=== PATIENT | male | born 1945 | race Caucasian/White ===

== ENCOUNTER 2017-09-18 11:21 | Emergency (ER) | payer OTHER, MEDICAID ==
[~2017-09-18] VITALS: Ht 167.6 cm; Wt 68.0 kg
[2017-09-18 11:23] VITALS: BP 170/84
--- NOTE | 2017-09-18 11:24 | NUR ---
Patient BIBA to bed 8 at this time.
--- NOTE | 2017-09-18 11:44 | NUR ---
X-RAY COMPLETED AT BEDSIDE
--- NOTE | 2017-09-18 11:44 | NUR ---
SPEAKING WITH PT AND CAREGIVER
[2017-09-18] MEDS ORDERED: NACL 0.9% 1,000 ML IV ONE (11:45)
[2017-09-18] MEDS ORDERED: ONDANSETRON 4 MG/2 ML VIAL IVP ONE (11:45)
[2017-09-18] MEDS ORDERED: DUTA0.5S2 GT (11:52)
[2017-09-18] MEDS ORDERED: MULT-153 GT (11:52)
[2017-09-18] MEDS ORDERED: VITB12 IM (11:52)
[2017-09-18] MEDS ORDERED: CARB1TAB37 PO (11:52)
[2017-09-18] MEDS ORDERED: MAGN400S60 GT (11:52)
[2017-09-18] MEDS ORDERED: ACET-2619 PO (11:52)
[2017-09-18] MEDS ORDERED: OMEP20TC12 GT (11:52)
[2017-09-18] MEDS ORDERED: BISA5ECT45 RC (11:52)
[2017-09-18] MEDS ORDERED: RASA1TAB3 GT (11:52)
[2017-09-18] MEDS ORDERED: ASCO500T45 GT (11:52)
[2017-09-18] MEDS ORDERED: DIVA250T PO (11:52)
[2017-09-18] MEDS ORDERED: MIRABULK GT (11:52)
[2017-09-18] MEDS ORDERED: METO5SOL19 GT (11:52)
[2017-09-18] MEDS ORDERED: ONDA4ODT1 SL (11:52)
[2017-09-18] MEDS ORDERED: FOLI1TAB90 PO (11:52)
[2017-09-18] MEDS ORDERED: SYN.075 GT (11:52)
[2017-09-18] MEDS ORDERED: TAMS0.4C96 GT (11:52)
[2017-09-18] MEDS ORDERED: LACT10SO1 GT (11:52)
[2017-09-18] MEDS ORDERED: TRAV5SOL OP (11:52)
[2017-09-18] MEDS ORDERED: [UNRECOGNIZED DRUG - CODE] GT (11:52)
[2017-09-18] MEDS ORDERED: VITB6I GT (11:52)
[2017-09-18] MEDS ORDERED: guaiFENesin 600 MG TABER PO SCH (11:55)
[2017-09-18] MEDS ORDERED: ACETAMINOPHEN EXTRA STRENGTH 500 MG TAB GT ONE (12:05)
[2017-09-18 12:20] LABS: BASOPHILS # (AUTO) 0.1 K/uL (0.00-0.22); BASOPHILS % (AUTO) 1.2 % (0.0-2.0); EOSINOPHILS % (AUTO) 0.1 % (0.0-4.0); HEMATOCRIT 37.7 % (36-52); HEMOGLOBIN 12.6 g/dL (12.0-18.0); LYMPHOCYTES # (AUTO) 1.1 K/uL (2.0-11.5); LYMPHOCYTES % (AUTO) 9.8 % (20.5-51.1); MEAN CORPUSCULAR HEMOGLOBIN 30 pg (27-31); MEAN CORPUSCULAR HGB CONC 33 g/dL (33-37); MEAN CORPUSCULAR VOLUME 90 fL (80-94); MONOCYTES # (AUTO) 0.6 K/uL (0.8-1.0); MONOCYTES % (AUTO) 5.3 % (1.7-9.3); NEUTROPHILS # (AUTO) 9.2 K/uL (1.8-7.7); NEUTROPHILS % (AUTO) 83.6 % (42.2-75.2); PLATELET COUNT (AUTO) 163 K/uL (140-450); RED BLOOD CELL COUNT(AUTO) 4.21 MIL/uL (4.20-6.10); RED CELL DISTRIBUTION WIDTH 13.4 % (11.6-13.7)
[2017-09-18 12:29] LABS: ANION GAP 13.6 (8-16); CARBON DIOXIDE 27.6 mmol/L (21-32); CHLORIDE 96 mmol/L (98-107); CREATININE 1.3 mg/dL (0.7-1.3); GLUCOSE 126 mg/dL (74-106); POTASSIUM 4.2 mmol/L (3.5-5.1); SODIUM SERUM 133 mmol/L (136-145); UREA NITROGEN, BLOOD 17 mg/dL (7-18)
[2017-09-18 12:35] LABS: ALBUMIN 3.1 g/dL (3.4-5.0); ASPARTATE AMINOTRANSFERASE 27 U/L (15-37); TOTAL BILIRUBIN 0.3 mg/dL (0.0-1.0)
[2017-09-18] MEDS ORDERED: guaiFENesin DM 200/20 MG-10 ML 10 ML UDC GT ONE (12:35)
[2017-09-18] MEDS ORDERED: LEVOFLOXACIN 750 MG TAB GT ONE (12:50)
--- NOTE | 2017-09-18 12:57 | NUR ---
MEDICATED PT VIA G-TUBE WITHOUT RESISTANCE---PT SEMI-ELMER'S AWAKE ALERT CAREGIVER AT BEDSIDE
[2017-09-18 13:20] VITALS: BP 173/88
--- NOTE | 2017-09-19 11:43 | NUR ---
addendum:recieved call from estella, from lab. preliminary blood cult.results: gram positive cocci in clusters. awaiting for sensitivity/final report
== END 2017-09-18 13:20 | disposition home or self-care (01) ==
LOC: MED 11:21
DX: J40 Bronchitis, not specified as acute or chronic (principal); R11.10 Vomiting, unspecified; R50.9 Fever, unspecified; D72.828 Other elevated white blood cell count; E03.9 Hypothyroidism, unspecified; Z79.899 Other long term (current) drug therapy; Z88.0 Allergy status to penicillin; Z88.1 Allergy status to other antibiotic agents; Z88.8 Allergy status to other drugs, medicaments and biological substances
CPT/HCPCS: 36415; 71010; 80053; 83605; 83880; 85025; 87040; 87205; 89220; 96361; 96374; 99285; J2405; J7030; Q0092; 87070

== ENCOUNTER 2018-01-11 11:57 | Inpatient (IN) | payer OTHER, MEDICAID ==
[~2018-01-11] VITALS: Ht 170.2 cm; Wt 73.9 kg
[~2018-01-11 11:57] MED LIST: ACET-2619 PO; ASCO500T45 GT; BISA5ECT45 RC; CARB1TAB37 PO; DIVA250T PO; DUTA0.5S2 GT; FOLI1TAB90 PO; LACT10SO1 GT; MAGN400S60 GT; METO5SOL19 GT; MIRABULK GT; MULT-153 GT; OMEP20TC12 GT; ONDA4ODT1 SL; RASA1TAB3 GT; SYN.075 GT; TAMS0.4C96 GT; TRAV5SOL OP; VITB12 IM; VITB6I GT; [UNRECOGNIZED DRUG - CODE] GT
[2018-01-11] MEDS ORDERED: NACL 0.9% 1,000 ML IV SCH (12:01)
[2018-01-11 12:11] VITALS: BP 111/50
[2018-01-11 12:58] LABS: BASOPHILS # (AUTO) 0.1 K/uL (0.00-0.22); BASOPHILS % (AUTO) 1.4 % (0.0-2.0); EOSINOPHILS % (AUTO) 0.4 % (0.0-4.0); HEMATOCRIT 38.8 % (36-52); HEMOGLOBIN 12.5 g/dL (12.0-18.0); LYMPHOCYTES % (AUTO) 18.8 % (20.5-51.1); MEAN CORPUSCULAR HEMOGLOBIN 30 pg (27-31); MEAN CORPUSCULAR HGB CONC 32 g/dL (33-37); MEAN CORPUSCULAR VOLUME 92 fL (80-94); MONOCYTES % (AUTO) 9.4 % (1.7-9.3); NEUTROPHILS # (AUTO) 7.6 K/uL (1.8-7.7); PLATELET COUNT (AUTO) 141 K/uL (140-450); RED BLOOD CELL COUNT(AUTO) 4.24 MIL/uL (4.20-6.10); RED CELL DISTRIBUTION WIDTH 13.7 % (11.6-13.7); WHITE BLOOD COUNT (AUTO) 10.7 K/uL (4.8-10.8)
[2018-01-11 13:06] LABS: PROTHROMBIN TIME 11.6 secs (10.8-13.4)
[2018-01-11 13:12] LABS: ALBUMIN 3.2 g/dL (3.4-5.0); ANION GAP 14.8 (8-16); ASPARTATE AMINOTRANSFERASE 18 U/L (15-37); CHLORIDE 98 mmol/L (98-107); CREATININE 1.4 mg/dL (0.7-1.3); GLUCOSE 97 mg/dL (74-106); POTASSIUM 3.8 mmol/L (3.5-5.1); SODIUM SERUM 136 mmol/L (136-145); TOTAL BILIRUBIN 0.4 mg/dL (0.0-1.0); UREA NITROGEN, BLOOD 35 mg/dL (7-18)
[2018-01-11] MEDS ORDERED: AZITHROMYCIN 500 MG in DEXTROSE 5% 250 ML IV ONE (13:25)
[2018-01-11] MEDS ORDERED: AZITHROMYCIN 500 MG INJ VIAL IV ONE (13:34)
[2018-01-11 13:47] LABS: APPEARANCE,URINE CLEAR (CLEAR); BILIRUBIN,URINE NEGATIVE (NEGATIVE); BLOOD, URINE NEGATIVE (NEGATIVE); COLOR,URINE YELLOW (YELLOW); LEUKOCYTE ESTERASE ,URINE NEGATIVE (NEGATIVE); NITRITE, URINE NEGATIVE (NEGATIVE); UGLUCOSE NEGATIVE (NEGATIVE)
[2018-01-11 13:56] LABS: RBC,URINE 0-5 (RARE) /HPF (0-5); WBC,URINE 0-5 (RARE) /HPF (0-5)
[2018-01-11] MEDS ORDERED: HYDROcodone/APAP 7.5/325 MG 1 TAB PO PRN (14:05)
[2018-01-11] MEDS ORDERED: ACETAMINOPHEN 325 MG TAB PO PRN (14:05)
[2018-01-11] MEDS ORDERED: ONDANSETRON 4 MG/2 ML VIAL IVP PRN (14:05)
[2018-01-11] MEDS ORDERED: ALEN70TA52 (14:31)
[2018-01-11] MEDS ORDERED: AMLO10TA PO (14:31)
[2018-01-11 14:42] LABS: FREE T4 (FREE THYROXINE) 1.38 ng/dL (0.76-1.46); PHOSPHORUS 3.6 mg/dL (2.5-4.9); THYROID STIMULATING HORMONE 3.2 uIU/mL (0.34-3.74)
[2018-01-11] MEDS: NACL 0.9% 1,000 ML IV SCH (15:20)
[2018-01-11] MEDS ORDERED: METOCLOPRAMIDE 10 MG/10 ML SYRP UDC GT PRN (15:25)
[2018-01-11] MEDS ORDERED: MAGNESIUM HYDROXIDE 2400 MG/30 ML UDC GT PRN (15:25)
[2018-01-11] MEDS ORDERED: BISACODYL 5 MG TABEC NG PRN (15:25)
[2018-01-11 15:30] VITALS: BP 116/50
[2018-01-11] MEDS ORDERED: ALBUTEROL SULFATE/IPRATROPIU 3 ML SOL IH PRN (17:10)
[2018-01-11] MEDS: CARBIDOPA/LEVODOPA 25/100 MG 1 TAB PO SCH (17:32)
[2018-01-11] MEDS: LEVOFLOXACIN 500 MG/D5W PREMIX 100 ML IV SCH (18:01)
[2018-01-11] MEDS: ALBUTEROL SULFATE/IPRATROPIU 3 ML SOL IH SCH (18:37)
[2018-01-11] MEDS: CLINDAMYCIN 300 MG in DEXTROSE 5% 50 ML IV SCH (18:59)
[2018-01-11 20:00] VITALS: BP 107/54
[2018-01-11] MEDS: LATANOPROST 0.005% OP 2.5 ML BTL OP SCH ×2 (21:00→21:52)
[2018-01-11] MEDS: DOCUSATE SODIUM 100 MG GELCAP PO SCH (21:04)
[2018-01-11] MEDS: DIVALPROEX 250 MG TABEC PO SCH (21:04)
[2018-01-12] VITALS: BP 112/52
[2018-01-12] MEDS: CLINDAMYCIN 300 MG in DEXTROSE 5% 50 ML IV SCH ×4 (00:11→17:05)
[2018-01-12 04:00] VITALS: BP 133/50
[2018-01-12] MEDS: LEVOTHYROXINE 0.075 MG TAB GT SCH (06:07)
[2018-01-12] MEDS: ALBUTEROL SULFATE/IPRATROPIU 3 ML SOL IH SCH ×3 (07:16→19:25)
[2018-01-12 08:22] VITALS: BP 149/72
[2018-01-12] MEDS ORDERED: DUTASTERIDE 0.5 MG GT SCH (09:00)
[2018-01-12] MEDS ORDERED: RASAGILINE MESYLATE 1 MG GT SCH (09:00)
[2018-01-12] MEDS: LACTOBACILLUS RHAMNOSUS GG 1 EACH CAP GT SCH (09:33)
[2018-01-12] MEDS: TAMSULOSIN 0.4 MG CAP GT SCH (09:34)
[2018-01-12] MEDS: DIVALPROEX 250 MG TABEC PO SCH ×2 (09:34→21:21)
[2018-01-12] MEDS: CARBIDOPA/LEVODOPA 25/100 MG 1 TAB PO SCH ×3 (09:34→17:05)
[2018-01-12] MEDS: DOCUSATE SODIUM 100 MG GELCAP PO SCH (09:34)
[2018-01-12] MEDS: amLODIPine 5 MG TAB PO SCH (09:37)
[2018-01-12] MEDS: NACL 0.9% 1,000 ML IV SCH (10:02)
[2018-01-12 12:00] VITALS: BP 120/56
[2018-01-12 16:00] VITALS: BP 103/50
[2018-01-12] MEDS: LEVOFLOXACIN 500 MG/D5W PREMIX 100 ML IV SCH (18:15)
[2018-01-12 20:00] VITALS: BP 122/61
[2018-01-12] MEDS: LATANOPROST 0.005% OP 2.5 ML BTL OP SCH (21:21)
[2018-01-12] MEDS: DOCUSATE 100 MG/10 ML UDC GT SCH (21:21)
[2018-01-13] VITALS: BP 142/57
[2018-01-13] MEDS: CLINDAMYCIN 300 MG in DEXTROSE 5% 50 ML IV SCH ×3 (00:50→12:42)
[2018-01-13 04:00] VITALS: BP 150/70
[2018-01-13] MEDS: NACL 0.9% 1,000 ML IV SCH (06:02)
[2018-01-13] MEDS: LEVOTHYROXINE 0.075 MG TAB GT SCH (06:08)
[2018-01-13] MEDS: ALBUTEROL SULFATE/IPRATROPIU 3 ML SOL IH SCH ×2 (06:55→13:26)
[2018-01-13 07:15] LABS: BASOPHILS # (AUTO) 0.1 K/uL (0.00-0.22); EOSINOPHILS # (AUTO) 0.1 K/uL (0-0.4); EOSINOPHILS % (AUTO) 0.9 % (0.0-4.0); HEMATOCRIT 31.9 % (36-52); HEMOGLOBIN 10.7 g/dL (12.0-18.0); LYMPHOCYTES # (AUTO) 1.4 K/uL (2.0-11.5); LYMPHOCYTES % (AUTO) 22.1 % (20.5-51.1); MEAN CORPUSCULAR HEMOGLOBIN 30 pg (27-31); MEAN CORPUSCULAR HGB CONC 34 g/dL (33-37); MEAN CORPUSCULAR VOLUME 90 fL (80-94); MONOCYTES # (AUTO) 0.5 K/uL (0.8-1.0); MONOCYTES % (AUTO) 8.4 % (1.7-9.3); NEUTROPHILS # (AUTO) 4.3 K/uL (1.8-7.7); NEUTROPHILS % (AUTO) 66.6 % (42.2-75.2); PLATELET COUNT (AUTO) 148 K/uL (140-450); RED BLOOD CELL COUNT(AUTO) 3.56 MIL/uL (4.20-6.10); RED CELL DISTRIBUTION WIDTH 13.7 % (11.6-13.7); WHITE BLOOD COUNT (AUTO) 6.4 K/uL (4.8-10.8)
[2018-01-13 07:36] LABS: ANION GAP 13.7 (8-16); CARBON DIOXIDE 25.3 mmol/L (21-32); CHLORIDE 105 mmol/L (98-107); GLUCOSE 98 mg/dL (74-106); SODIUM SERUM 140 mmol/L (136-145); UREA NITROGEN, BLOOD 19 mg/dL (7-18)
[2018-01-13 07:39] LABS: MAGNESIUM 1.8 mg/dL (1.8-2.4); PHOSPHORUS 2.4 mg/dL (2.5-4.9)
[2018-01-13 08:00] VITALS: BP 128/59
[2018-01-13] MEDS: TAMSULOSIN 0.4 MG CAP GT SCH (08:30)
[2018-01-13] MEDS: LACTOBACILLUS RHAMNOSUS GG 1 EACH CAP GT SCH (09:58)
[2018-01-13] MEDS: CARBIDOPA/LEVODOPA 25/100 MG 1 TAB PO SCH ×2 (09:58→12:42)
[2018-01-13] MEDS: DIVALPROEX 250 MG TABEC PO SCH (09:59)
[2018-01-13] MEDS: DOCUSATE 100 MG/10 ML UDC GT SCH (09:59)
[2018-01-13] MEDS: amLODIPine 5 MG TAB PO SCH (09:59)
[2018-01-13 12:00] VITALS: BP 94/53
[2018-01-13] MEDS ORDERED: LEVO750T2 PO (13:35)
[2018-01-13] MEDS ORDERED: ASCO1CAP75 PO (13:38)
[2018-01-17] MEDS ORDERED: ALENDRONATE SODIUM 70 MG TAB PO SCH (06:00)
== END 2018-01-13 14:50 | disposition home or self-care (01) | DRG 177 ==
LOC: MED 11:57 → MTU 14:09
PROVIDERS: ADMIT Student in an Organized Health Care Education/Training Program; ATTEND Student in an Organized Health Care Education/Training Program
DX: J69.0 Pneumonitis due to inhalation of food and vomit (principal); G93.41 Metabolic encephalopathy; J96.21 Acute and chronic respiratory failure with hypoxia; N17.0 Acute kidney failure with tubular necrosis; F72 Severe intellectual disabilities; E44.1 Mild protein-calorie malnutrition; G20 Parkinson's disease; G40.909 Epilepsy, unspecified, not intractable, without status epilepticus; K86.9 Disease of pancreas, unspecified; E03.9 Hypothyroidism, unspecified; K59.09 Other constipation; N28.1 Cyst of kidney, acquired; N18.3 Chronic kidney disease, stage 3 (moderate); I12.9 Hypertensive chronic kidney disease with stage 1 through stage 4 chronic kidney disease, or unspecified chronic kidney disease; N40.0 Benign prostatic hyperplasia without lower urinary tract symptoms; Z88.1 Allergy status to other antibiotic agents; Z88.0 Allergy status to penicillin; Z88.8 Allergy status to other drugs, medicaments and biological substances; Z79.899 Other long term (current) drug therapy; Z90.5 Acquired absence of kidney
CPT/HCPCS: 36415; 70450; 71045; 80048; 80053; 81001; 82150; 82550; 82553; 83036; 83605; 83690; 83735; 83880; 84100; 84439; 84443; 84484; 85025; 85610; 85730; 87040; 87081; 87086; 94640; 96361; 96365; 99285; C1758; J0456; J1956; J3490; J7030; J7060; J7620; Q0092

== ENCOUNTER 2018-03-04 08:26 | Inpatient (IN) | payer OTHER, MEDICAID ==
[~2018-03-04] VITALS: Ht 157.5 cm; Wt 72.1 kg
[~2018-03-04 08:26] MED LIST changes: +ACET-2619 GT; -ACET-2619 PO; +ALEN70TA52 GT; +AMLO10TA GT; +ASCO1CAP75 PO; +CARB1TAB37 GT; -CARB1TAB37 PO; +DIVA250T GT; -DIVA250T PO; -FOLI1TAB90 PO; +LEVO750T2 PO; -VITB12 IM; -VITB6I GT
[2018-03-04 08:39] VITALS: BP 153/58
--- NOTE | 2018-03-04 08:39 | NUR ---
PATIENT TO BED #1 BY SCHOOL LUNCH MANAGER. JEVON. WITH ASSISTANCE
--- NOTE | 2018-03-04 08:39 | NUR ---
PT BIBA FOR POST FALL THAT WAS ASSISTED TO THE FLOOR. [facility]. PT ALERT AND ORIENTED TO SELF, HE IS NON VERBAL WITH A GT TUBE OTHERWISE SKIN INTACT. 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 PT IS AMBULATORY BUT FACILITY STAFF HAD ASSISTED RESIDENT TO THE GROUND WHEN THEY WITNESSED HIM STARE OFF IN SPACE AND WAS NOT RESPONDING VERBALLY TO THEM. THEY ASSISTED HIM TO THE GROUND AND BROUGHT RESIDENT IN TO BE CHECKED OUT.
[2018-03-04] MEDS ORDERED: NACL 0.9% 1,000 ML IV ONE (09:15)
--- NOTE | 2018-03-04 09:47 | NUR ---
LAB DRAWS AND X RAY DONE AT BEDSIDE
[2018-03-04 09:56] LABS: BASOPHILS % (AUTO) 0.4 % (0.0-2.0); EOSINOPHILS % (AUTO) 0.8 % (0.0-4.0); HEMATOCRIT 38.3 % (36-52); HEMOGLOBIN 12.5 g/dL (12.0-18.0); LYMPHOCYTES % (AUTO) 24.2 % (20.5-51.1); MEAN CORPUSCULAR HEMOGLOBIN 30 pg (27-31); MEAN CORPUSCULAR HGB CONC 33 g/dL (33-37); MONOCYTES # (AUTO) 0.4 K/uL (0.8-1.0); NEUTROPHILS # (AUTO) 2.7 K/uL (1.8-7.7); NEUTROPHILS % (AUTO) 65.6 % (42.2-75.2); PLATELET COUNT (AUTO) 144 K/uL (140-450); RED BLOOD CELL COUNT(AUTO) 4.16 MIL/uL (4.20-6.10); RED CELL DISTRIBUTION WIDTH 14.3 % (11.6-13.7); WHITE BLOOD COUNT (AUTO) 4.2 K/uL (4.8-10.8)
[2018-03-04 10:06] LABS: CARBON DIOXIDE 30.8 mmol/L (21-32); CHLORIDE 98 mmol/L (98-107); CREATININE 1.3 mg/dL (0.7-1.3); GLUCOSE 100 mg/dL (74-106); POTASSIUM 4.8 mmol/L (3.5-5.1); SODIUM SERUM 135 mmol/L (136-145); UREA NITROGEN, BLOOD 20 mg/dL (7-18)
--- NOTE | 2018-03-04 10:06 | NUR ---
PT GING FOR CT TO HEAD AND FALL RISK BAND PLACED ON R WRIST
[2018-03-04 10:23] LABS: ALBUMIN 3.6 g/dL (3.4-5.0); ASPARTATE AMINOTRANSFERASE 24 U/L (15-37); TOTAL BILIRUBIN 0.4 mg/dL (0.0-1.0)
[2018-03-04 12:26] LABS: APPEARANCE,URINE CLEAR (CLEAR); BILIRUBIN,URINE NEGATIVE (NEGATIVE); BLOOD, URINE NEGATIVE (NEGATIVE); COLOR,URINE YELLOW (YELLOW); LEUKOCYTE ESTERASE ,URINE NEGATIVE (NEGATIVE); NITRITE, URINE NEGATIVE (NEGATIVE); UGLUCOSE NEGATIVE (NEGATIVE)
[2018-03-04] MEDS ORDERED: LORazepam 2 MG/ML VIAL IVP PRN (13:00)
[2018-03-04] MEDS ORDERED: BISACODYL 5 MG TABEC GT PRN (13:00)
[2018-03-04] MEDS ORDERED: METOCLOPRAMIDE 10 MG/10 ML SYRP UDC GT PRN (13:00)
[2018-03-04] MEDS ORDERED: ACETAMINOPHEN 325 MG TAB GT PRN (13:00)
[2018-03-04] MEDS ORDERED: ONDANSETRON 4 MG ODT SL PRN (13:00)
[2018-03-04] MEDS ORDERED: HYDROcodone/APAP 5/325 MG 1 TAB TAB GT PRN (13:00)
[2018-03-04] MEDS ORDERED: MAGNESIUM HYDROXIDE 2400 MG/30 ML UDC GT PRN (13:00)
[2018-03-04] MEDS ORDERED: MORPHINE SULFATE 4 MG/ML SYR IVP PRN (13:00)
--- NOTE | 2018-03-04 13:50 | NUR ---
ULTRASOUND AT BEDSIDE---PT REMAINS AWAKE CALM COOPERATIVE TO STAFF MENTAL DELAY PT'S BASELINE GCS 12 PT'S BASE LINE PER PT'S BLOCKING MACHINE OPERATOR
[2018-03-04] MEDS ORDERED: LACTULOSE 20 GM/30 ML UDC GT SCH (14:00)
[2018-03-04] MEDS ORDERED: MULTIVITAMIN 5 ML ORASYR GT SCH (14:00)
[2018-03-04] MEDS ORDERED: LANSOPRAZOLE 30 MG CAPDR GT SCH (14:00)
[2018-03-04] MEDS ORDERED: ASCORBIC ACID 500 MG TAB GT SCH (14:00)
[2018-03-04] MEDS: amLODIPine 5 MG TAB GT SCH ×2 (14:00→16:39)
[2018-03-04] MEDS ORDERED: POLYETHYLENE GLYCOL 17 GM/PKT GT SCH (14:00)
--- NOTE | 2018-03-04 14:00 | NUR ---
PT STRAIGHT CATHERTIZED VIA 16 F PT REALSED 525 MLS OF YELLOW URINE. PT TOLERATED PROCEDURE WELL.
--- NOTE | 2018-03-04 14:21 | NUR ---
Pt report given to GEORGI CRUMP. Transfer of care at this time TO TELE RM [id number]
[2018-03-04 14:30] VITALS: BP 171/71
--- NOTE | 2018-03-04 14:30 | NUR ---
PATIENT WAS TRANSFERRED FROM ER. REPORT WAS GIVEN AT BEDSIDE. PATIENT AMBULATED SELF TO BED, STEADY GAIT. VS IS TAKEN, MRSA WAS SWABBED. COMPUTER REPAIRER IS PLACED. PATIENT IS AWAKE, ALERT. RESPIRATION EVEN, UNLABOR ON ROOM AIR. SKIN DRY AND WARM. IV PATENT AND INTACT. G TUBE DRY AND INTACT. FLACC 0. PATIENT IS APHASIC, COOPERATIVE. BED AT LOW POSITION, HEAD OF BED WAS ELEVATED. ORIENTED PATIENT TO ROOM, STAFF, AND CALL LIGHT.
[2018-03-04] MEDS: CARBIDOPA/LEVODOPA 25/100 MG 1 TAB GT SCH ×2 (15:08→16:43)
[2018-03-04] MEDS: DEXT 5% /NACL 0.9% 1,000 ML IV SCH ×2 (15:09→23:00)
--- NOTE | 2018-03-04 15:11 | NUR ---
GTUBE RESIDUAL CHECK > 300 ML. MEDS ARE HELD. WILL NOTIFY .
[2018-03-04 16:00] VITALS: BP 167/73
--- NOTE | 2018-03-04 17:39 | NUR ---
CALLED AND SPOKE WITH TIARA KELLY RN [facility]. TIARA STATED SHE WILL CHECK THE MEDICATIONS AND WILL BRING IT TOMORROW.
[2018-03-04 18:49] LABS: CREATINE KINASE MB 1.8 ng/mL (0-3.6)
--- NOTE | 2018-03-04 19:12 | NUR ---
ENDORSEMENT GIVEN TO THE WATCH DIAL STONER NURSE. PATIENT IS STABLE AT THIS TIME
--- NOTE | 2018-03-04 19:13 | NUR ---
PATIENT REPORT RECEIVED FROM MORNING NURSE AT BEDSIDE. PATIENT IS AWAKE AND ALERT. APHASIC. BEDREST. NO SIGNS AND SYMPTOMS OF DISTRESS NOTED. FLACC-0. PATIENT IS ON ROOM AIR. GTUBE AND ABDOMINAL BINDER NOTED. IV SITE NOTED ON RIGHT AC, IVF INFUSING WELL. BED IN LOWEST POSITION, SIDE RAILS UP AND CALL LIGHT WITHIN REACH. WILL CONTINUE TO MONITOR.
[2018-03-04 20:00] VITALS: BP 147/64
[2018-03-04] MEDS ORDERED: NON-FORMULARY ITEM (Travoprost (Travatan Z 5 Ml) 1 DROP) OP SCH (21:00)
--- NOTE | 2018-03-04 21:00 | NUR ---
GTUBE RESIDUAL CHECKED. NO RESIDUAL NOTED. MEDICATION EDUCATION GIVEN. MEDICATION ADMINISTERED ORDERED. PATIENT TOLERATED WELL. WILL CONTINUE TO MONITOR.
[2018-03-04] MEDS: DIVALPROEX SPRINKLES 125 MG CAPDR GT SCH (21:16)
[2018-03-04] MEDS: TAMSULOSIN 0.4 MG CAP GT SCH (21:17)
--- NOTE | 2018-03-04 23:30 | NUR ---
PATIENT URINATED IN BED. PERICARE DONE. CHUCKS, SHEETS, AND GOWN CHANGED. BED BATH GIVEN. NOTICED LEFT KNEE SKIN TEAR, RIGHT FOREARM AND RIGHT LEG ABRASIONS. ALL HEALED. PICTURES TAKEN, WOUND ASSESSMENT DONE. PATIENT TOLERATED WELL. WILL CONTINUE TO MONITOR.
--- NOTE | 2018-03-04 23:33 | NUR ---
CHECKED ON PATIENT. PATIENT IS ASLEEP. NO SIGNS AND SYMPTOMS OF DISTRESS NOTED. BREATHING EVEN AND UNLABORED. WILL CONTINUE TO MONITOR. Addendum: 03/05/18 at 0302 by David Gant RN WRONG TIME [id number]
[2018-03-05] VITALS: BP 146/62
--- NOTE | 2018-03-05 02:00 | NUR ---
CHECKED ON PATIENT. PATIENT IS ASLEEP. NO SIGNS AND SYMPTOMS OF DISTRESS NOTED. FLACC 0. BREATHING EVEN AND UNLABORED. WILL CONTINUE TO MONITOR.
[2018-03-05 04:00] VITALS: BP 110/45
[2018-03-05] MEDS: LEVOTHYROXINE 0.075 MG TAB GT SCH (05:38)
[2018-03-05] MEDS: LANSOPRAZOLE 30 MG CAPDR GT SCH (05:38)
--- NOTE | 2018-03-05 06:00 | NUR ---
GTUBE RESIDUAL CHECKED. NO RESIDUAL NOTED. MEDICATION EDUCATION GIVEN. MEDICATION ADMINISTERED ORDERED. PATIENT TOLERATED WELL. WILL CONTINUE TO MONITOR.
[2018-03-05 06:44] LABS: BASOPHILS # (AUTO) 0.2 K/uL (0.00-0.22); BASOPHILS % (AUTO) 3.7 % (0.0-2.0); HEMATOCRIT 39.5 % (36-52); HEMOGLOBIN 13.2 g/dL (12.0-18.0); LYMPHOCYTES # (AUTO) 1.3 K/uL (2.0-11.5); LYMPHOCYTES % (AUTO) 30.7 % (20.5-51.1); MEAN CORPUSCULAR HEMOGLOBIN 31 pg (27-31); MEAN CORPUSCULAR HGB CONC 34 g/dL (33-37); MEAN CORPUSCULAR VOLUME 92.1 fL (80-94); MONOCYTES # (AUTO) 0.4 K/uL (0.8-1.0); MONOCYTES % (AUTO) 9.1 % (1.7-9.3); NEUTROPHILS # (AUTO) 2.5 K/uL (1.8-7.7); NEUTROPHILS % (AUTO) 55.5 % (42.2-75.2); PLATELET COUNT (AUTO) 133 K/uL (140-450); RED BLOOD CELL COUNT(AUTO) 4.29 MIL/uL (4.20-6.10); RED CELL DISTRIBUTION WIDTH 13.3 % (11.6-13.7); WHITE BLOOD COUNT (AUTO) 4.4 K/uL (4.8-10.8)
--- NOTE | 2018-03-05 07:20 | NUR ---
PATIENT REPORT GIVEN TO MORNING NURSE FOR CONTINUITY OF CARE. PATIENT IS IN STABLE CONDITION.
--- NOTE | 2018-03-05 07:25 | NUR ---
RECEIVED REPORT FROM FORM MAKER NURSE, PT IS RESTING IN BED, PT IS AAOX2, AMBULATES WITH ASSIST, PT HAS IV ON THE RIGHT AC, PATENT, INTACT, FLUSHING WELL, PT HAS SKIN ABRASION ON HIS RT LEG AND RT FA AND LEFT KNEE SKIN TEAR, PT HAS G TUBE IN PLACE, NO S/S OF RESPIRATORY DISTRESS OR DISCOMFORT NOTED, DISCUSSED PLAN OF CARE WITH PT, PT VERBALIZED UNDERSTANDING, SAFETY/FALL PRECAUTIONS ARE IN PLACE, CALL LIGHT WITHIN REACH, WILL CONTINUE TO MONITOR.
[2018-03-05 07:36] LABS: ANION GAP 9.3 (8-16); CARBON DIOXIDE 29.3 mmol/L (21-32); CHLORIDE 104 mmol/L (98-107); CREATININE 1.1 mg/dL (0.7-1.3); GLUCOSE 97 mg/dL (74-106); POTASSIUM 4.6 mmol/L (3.5-5.1); SODIUM SERUM 138 mmol/L (136-145); UREA NITROGEN, BLOOD 13 mg/dL (7-18)
[2018-03-05 07:51] LABS: ALBUMIN 3.5 g/dL (3.4-5.0); ASPARTATE AMINOTRANSFERASE 24 U/L (15-37); MAGNESIUM 1.9 mg/dL (1.8-2.4); PHOSPHORUS 2.6 mg/dL (2.5-4.9); TOTAL BILIRUBIN 0.3 mg/dL (0.0-1.0)
[2018-03-05 07:56] LABS: FREE T4 (FREE THYROXINE) 1.12 ng/dL (0.76-1.46); THYROID STIMULATING HORMONE 1.41 uIU/mL (0.34-3.74)
[2018-03-05 08:00] VITALS: BP 149/105
[2018-03-05] MEDS ORDERED: CALCIUM CARBONATE GT SCH (09:00)
[2018-03-05] MEDS ORDERED: NON-FORMULARY ITEM (Omeprazole (Omeprazole) 20 MG) GT SCH (09:00)
[2018-03-05] MEDS ORDERED: MULTIVITAMIN 5 ML ORASYR GT SCH (09:00)
[2018-03-05] MEDS ORDERED: VITAMIN D3 GT SCH (09:00)
[2018-03-05] MEDS ORDERED: RASAGILINE MESYLATE 1 MG GT SCH (09:00)
[2018-03-05] MEDS ORDERED: DUTASTERIDE 0.5 MG GT SCH (09:00)
[2018-03-05] MEDS: CARBIDOPA/LEVODOPA 25/100 MG 1 TAB GT SCH ×3 (09:39→17:32)
[2018-03-05] MEDS: LACTULOSE 20 GM/30 ML UDC GT SCH (09:39)
[2018-03-05] MEDS: amLODIPine 5 MG TAB GT SCH (09:39)
[2018-03-05] MEDS: ASCORBIC ACID 500 MG TAB GT SCH (09:40)
[2018-03-05] MEDS: POLYETHYLENE GLYCOL 17 GM/PKT GT SCH (09:40)
[2018-03-05] MEDS: DIVALPROEX SPRINKLES 125 MG CAPDR GT SCH ×2 (09:40→20:14)
--- NOTE | 2018-03-05 09:40 | NUR ---
DUE MEDICATIONS GIVEN, NO RESIDUAL FROM G-TUBE NOTED, PATIENT TOLERATED WELL. WILL CONTINUE TO MONITOR.
[2018-03-05] MEDS: DEXT 5% /NACL 0.9% 1,000 ML IV SCH ×2 (09:41→19:15)
--- NOTE | 2018-03-05 09:47 | NUR ---
PATIENT HAS BEEN SCREENED AND CATEGORIZED HIGH NUTRITION RISK. PATIENT WILL BE SEEN WITHIN 1-2 DAYS OF ADMISSION. 03/05/18 - 03/06/[address]
[2018-03-05 12:00] VITALS: BP 100/54
--- NOTE | 2018-03-05 12:10 | NUR ---
PT RESTING IN BED, NO S/S OF DISTRESS NOTED, CALL LIGHT WITHIN REACH.
[2018-03-05 14:49] LABS: CREATINE KINASE MB 1.3 ng/mL (0-3.6)
--- NOTE | 2018-03-05 15:34 | NUR ---
03/05/18 RD INITIAL ASSESSMENT COMPLETED PLEASE REFER TO NUTRITION ASSESSMENT UNDER CARE ACTIVITY FOR ESTIMATED NUTRITIONAL NEEDS. 1.RECOMMENDED NOVASOURCE RENAL AT 25 ML/HR -THIS WILL PROVIDE 1200 KCAL AND 54 GM PROTEIN /DAY AND 432 ML OF WATER. PT WILL RECEIVE >75% OF ESTIMATED ENERGY NEEDS AND 100% OF PROTEIN NEEDS. 2. RD TO FOLLOW-UP 2-3 DAYS, HIGH RISK FERMIN CUMMINGS, RD
--- NOTE | 2018-03-05 15:35 | NUR ---
PT SLEEPING IN BED AT THIS TIME.
[2018-03-05 16:00] VITALS: BP 96/53
--- NOTE | 2018-03-05 17:00 | NUR ---
PT TURNED AND GOWN CHANGED FOR COMFORT, ALL NEEDS MET. CALL LIGHT WITHIN REACH.
[2018-03-05] MEDS ORDERED: CHLORHEXADINE GLUC 2% CLOTH TP SCH (18:15)
[2018-03-05] MEDS ORDERED: MUPIROCIN 2% OINT 22 GM TUBE TP SCH (19:00)
--- NOTE | 2018-03-05 19:00 | NUR ---
PAGED DR. ARZOLA TO LET HIM KNOW PT HAS MRSA OF THE NARES.
--- NOTE | 2018-03-05 19:22 | NUR ---
ENDORSED PT TO TERRAZZO LAYER HELPER NURSE FOR CONTINUITY OF CARE. PT STABLE AT THIS TIME.
--- NOTE | 2018-03-05 19:25 | NUR ---
RECEIVED REPORT FROM DAY SHIFT NURSE KRYSTEN AT BEDSIDE. PATIENT AWAKE AND ALERT APHASIC. PT ON BED REST. AMBULATORY ONLY WITH ASSIST. NO S/S OF DISTRESS, NO SOB, ON ROOM AIR. IV SITE RAC 20G D5 NS AT 100ML. G-TUBE NOTED. ABDOMINAL BINDER. SAFETY PRECAUTIONS OF CARE. PLAN OF CARE DISCUSSED WITH PATIENT (PT IS APHASIC). NO PAIN FLACC-0. BED LOWERED CALL LIGHT WITHIN IN REACH. WILL CONTINUE TO MONITOR.
[2018-03-05 20:00] VITALS: BP 128/51
[2018-03-05] MEDS: TAMSULOSIN 0.4 MG CAP GT SCH (20:15)
--- NOTE | 2018-03-05 20:25 | NUR ---
MEDICATED PT THROUGH G-TUBE. NO RESIDUAL. ALSO PUT BOARD UNDER ELBOW TO PREVENT IV FROM BECOMING HIGH PRESSURE. WILL CONTINUE TO MONITOR.
--- NOTE | 2018-03-05 21:00 | NUR ---
PT URINATED IN BED-INCONTINENT. CHANGED LINEN. WILL CONTINUE TO MONITOR.
[2018-03-06] VITALS: BP 143/58
--- NOTE | 2018-03-06 02:26 | NUR ---
ASSESSED PT. PT SLEEPING AT THIS TIME. NO SOB. NO S/S OF DISTRESS. WILL CONTINUE TO MONITOR.
[2018-03-06 04:00] VITALS: BP 138/63
--- NOTE | 2018-03-06 04:30 | NUR ---
PT SLEEPING. NO SOB. NO S/S OF DISTRESS. WILL CONTINUE TO MONITOR.
[2018-03-06] MEDS: LEVOTHYROXINE 0.075 MG TAB GT SCH (05:52)
[2018-03-06] MEDS: LANSOPRAZOLE 30 MG CAPDR GT SCH (05:52)
[2018-03-06] MEDS: DEXT 5% /NACL 0.9% 1,000 ML IV SCH (06:05)
--- NOTE | 2018-03-06 07:20 | NUR ---
RECEIVED REPORT FROM CAR SEALER.PATIENT LYING IN BED. ALERT AND CONFUSED.NO SOB AND DISTRESS.CALL LIGHT WITHIN REACH.WILL CONTINUE TO MONITORING.
--- NOTE | 2018-03-06 07:20 | NUR ---
GAVE REPORT TO DAY SHIFT NURSE AT BEDSIDE FOR CONTINUITY OF CARE. PT ASLEEP. NO SOB. NO S/S OF DISTRESS.
[2018-03-06 07:22] LABS: BASOPHILS # (AUTO) 0.2 K/uL (0.00-0.22); BASOPHILS % (AUTO) 4.8 % (0.0-2.0); EOSINOPHILS % (AUTO) 0.9 % (0.0-4.0); HEMATOCRIT 35.6 % (36-52); HEMOGLOBIN 11.9 g/dL (12.0-18.0); LYMPHOCYTES # (AUTO) 1.2 K/uL (2.0-11.5); LYMPHOCYTES % (AUTO) 33.5 % (20.5-51.1); MEAN CORPUSCULAR HEMOGLOBIN 31 pg (27-31); MEAN CORPUSCULAR HGB CONC 33 g/dL (33-37); MEAN CORPUSCULAR VOLUME 92.6 fL (80-94); MONOCYTES # (AUTO) 0.5 K/uL (0.8-1.0); MONOCYTES % (AUTO) 12.4 % (1.7-9.3); NEUTROPHILS # (AUTO) 1.8 K/uL (1.8-7.7); NEUTROPHILS % (AUTO) 48.4 % (42.2-75.2); PLATELET COUNT (AUTO) 117 K/uL (140-450); RED BLOOD CELL COUNT(AUTO) 3.84 MIL/uL (4.20-6.10); RED CELL DISTRIBUTION WIDTH 13.2 % (11.6-13.7); WHITE BLOOD COUNT (AUTO) 3.7 K/uL (4.8-10.8)
[2018-03-06 07:32] LABS: ANION GAP 10.5 (8-16); CARBON DIOXIDE 27.8 mmol/L (21-32); CHLORIDE 106 mmol/L (98-107); GLUCOSE 100 mg/dL (74-106); POTASSIUM 4.3 mmol/L (3.5-5.1); SODIUM SERUM 140 mmol/L (136-145); UREA NITROGEN, BLOOD 14 mg/dL (7-18)
[2018-03-06 08:00] VITALS: BP 133/67
[2018-03-06] MEDS: ASCORBIC ACID 500 MG TAB GT SCH (09:17)
[2018-03-06] MEDS: LACTULOSE 20 GM/30 ML UDC GT SCH (09:17)
[2018-03-06] MEDS: DIVALPROEX SPRINKLES 125 MG CAPDR GT SCH (09:18)
[2018-03-06] MEDS: amLODIPine 5 MG TAB GT SCH (09:19)
[2018-03-06] MEDS: POLYETHYLENE GLYCOL 17 GM/PKT GT SCH (09:20)
[2018-03-06] MEDS: CARBIDOPA/LEVODOPA 25/100 MG 1 TAB GT SCH ×2 (09:22→13:45)
[2018-03-06 12:00] VITALS: BP 135/66
--- NOTE | 2018-03-06 12:00 | NUR ---
PATIENT IN LYING BED,NO DISTRESS.CALL LIGHT WITHIN REACH,WILL CONTINUE TO MONITORING.
[2018-03-06] MEDS ORDERED: BACTO TP (13:21)
[2018-03-06 14:39] VITALS: BP 132/66
--- NOTE | 2018-03-06 14:40 | NUR ---
PATIENT DISCHARGE TO [facility]ARDING CARE BY WHEELCHAIR. BOARDING CARE ONE STAFF ASSIST AND PICK PT UP TO TRANSPORTATION. PT ALERT AND CONFUSED.NON VERBAL, UNABLE TO SIGN DC PAPERWORK.V/S STABLE.DC INSTRUCTION GIVEN BOARDING CARE STAFF.VERBALIZED UNDERSTANDING.
[2018-03-06 14:47] VITALS: BP 136/67
== END 2018-03-06 16:40 | DRG 73 ==
LOC: MED 08:26 → MTU 13:08
PROVIDERS: ADMIT Preventive Medicine Preventive Medicine/Occupational Environmental Medicine; ATTEND Preventive Medicine Preventive Medicine/Occupational Environmental Medicine
DX: G90.8 Other disorders of autonomic nervous system (principal); G93.41 Metabolic encephalopathy; D64.9 Anemia, unspecified; E83.51 Hypocalcemia; I11.9 Hypertensive heart disease without heart failure; E87.1 Hypo-osmolality and hyponatremia; Z88.0 Allergy status to penicillin; E03.9 Hypothyroidism, unspecified; R79.89 Other specified abnormal findings of blood chemistry; D72.819 Decreased white blood cell count, unspecified; Z22.322 Carrier or suspected carrier of Methicillin resistant Staphylococcus aureus; I25.10 Atherosclerotic heart disease of native coronary artery without angina pectoris; N28.9 Disorder of kidney and ureter, unspecified; R00.1 Bradycardia, unspecified; Z88.8 Allergy status to other drugs, medicaments and biological substances
CPT/HCPCS: 36415; 70450; 71045; 80048; 80053; 81003; 82550; 82553; 82948; 83605; 83735; 83880; 84100; 84439; 84443; 84484; 85025; 85610; 85730; 87040; 87081; 87086; 93005; 93880; 99285; C1758; J7042; Q0092

== ENCOUNTER 2018-07-27 09:59 | Emergency (ER) | payer OTHER, MEDICAID ==
[~2018-07-27] VITALS: Ht 172.7 cm; Wt 63.5 kg
[~2018-07-27 09:59] MED LIST changes: -ASCO1CAP75 PO; +BACTO TP; -LEVO750T2 PO
[2018-07-27 10:01] VITALS: BP 147/98
--- NOTE | 2018-07-27 10:06 | NUR ---
72 YO M EMILIANO FROM [facility] IN [place] FOR C/O SYNCOPAL EPISODE X 2 TODAY THAT LASTED APPROX 15 SECONDS. DENIES HEAD TRAUMA. NO APPARENT INJURY, BS 111. PER REPORT PT HAS BEEN EATING/DRINKING WELL, DENIES ANY S/S OF ILLNESS, NO FEVERS. PT OPENS EYES SPONTANEOUSLY, RESPONDS TO VISUAL, AUDITORY, PAINFUL STIMULI. GCS 10, NON-VERBAL. PT AMBULATES W/ WALKER, HX CEREBRAL PALSY. RR EVEN AND UNLABORED, LUNGS CLEAR. ABD SOFT, NON-TENDER. ER MD NOTIFIED OF PT STATUS. PT NEEDS MET, SAFETY AND FALL PRECAUTIONS INITIATED. WILL CONTINUE TO MONITOR.
--- NOTE | 2018-07-27 10:06 | NUR ---
DR JASON NOTIFIFED OF PT STATUS. NO NEW ORDERS RECEIVED.
[2018-07-27] MEDS ORDERED: NACL 0.9% 1,000 ML IV SCH (10:40)
--- NOTE | 2018-07-27 10:47 | NUR ---
2 ATTEMPTS TO START IV. UNABLE TO OBTAIN IV ACCESS. CHARGE NURSE AND ER MD NOTIFIED. CHARGE NURSE TO TRY TO OBTAIN ACCESS AT THIS TIME.
--- NOTE | 2018-07-27 10:50 | NUR ---
CHARGE NURSE AT BEDSIDE AT THIS TIME ATTEMPTING OV ACCESS.
--- NOTE | 2018-07-27 10:58 | NUR ---
PT RESTING COMFORTABLY IN [facility] AT THIS TIME W/ VSS AND RR EVEN AND UNLABORED. SAFETY/FALL PRECAUTIONS IN PLACE. WILL CONTINUE TO MONITOR.
--- NOTE | 2018-07-27 11:04 | NUR ---
CAHRGE NURSE UNABLE TO OBTAIN IV ACCESS. ER MD NOTIFIED. PT NEEDS MET. SAFETY PRECAUTIONS IN PLACE. WILL CONTINUE TO MONITOR.
[2018-07-27 11:22] LABS: BASOPHILS % (AUTO) 0.3 % (0.0-2.0); EOSINOPHILS % (AUTO) 0.7 % (0.0-4.0); HEMATOCRIT 38.4 % (36-52); HEMOGLOBIN 12.7 g/dL (12.0-18.0); LYMPHOCYTES # (AUTO) 1.3 K/uL (2.0-11.5); LYMPHOCYTES % (AUTO) 26.7 % (20.5-51.1); MEAN CORPUSCULAR HEMOGLOBIN 31 pg (27-31); MEAN CORPUSCULAR HGB CONC 33 g/dL (33-37); MEAN CORPUSCULAR VOLUME 94.4 fL (80-94); MONOCYTES # (AUTO) 0.6 K/uL (0.8-1.0); MONOCYTES % (AUTO) 11.2 % (1.7-9.3); NEUTROPHILS # (AUTO) 3.1 K/uL (1.8-7.7); NEUTROPHILS % (AUTO) 61.1 % (42.2-75.2); PLATELET COUNT (AUTO) 105 K/uL (140-450); RED BLOOD CELL COUNT(AUTO) 4.07 MIL/uL (4.20-6.10); RED CELL DISTRIBUTION WIDTH 15.1 % (11.6-13.7)
[2018-07-27 11:42] LABS: ANION GAP 11.5 (8-16); CARBON DIOXIDE 29.9 mmol/L (21-32); CHLORIDE 102 mmol/L (98-107); CREATININE 1.2 mg/dL (0.7-1.3); GLUCOSE 91 mg/dL (74-106); POTASSIUM 4.4 mmol/L (3.5-5.1); SODIUM SERUM 139 mmol/L (136-145); UREA NITROGEN, BLOOD 21 mg/dL (7-18)
[2018-07-27 11:48] LABS: ALBUMIN 3.4 g/dL (3.4-5.0); ASPARTATE AMINOTRANSFERASE 34 U/L (15-37); TOTAL BILIRUBIN 0.3 mg/dL (0.0-1.0)
[2018-07-27 11:57] LABS: LIPASE 207 U/L (73-393); VALPROIC ACID 87 ug/ml (50-100)
[2018-07-27 13:38] VITALS: BP 133/81
--- NOTE | 2018-07-27 13:38 | NUR ---
Patient discharged with v/s stable. Written and verbal after care instructions given and explained. Patient verbalized understanding. Ambulatory with steady gait. All questions addressed prior to discharge. Advised to follow up with PMD.
== END 2018-07-27 13:38 | disposition home or self-care (01) ==
LOC: MED 09:59
DX: R55 Syncope and collapse (principal); K21.9 Gastro-esophageal reflux disease without esophagitis; I10 Essential (primary) hypertension; E07.9 Disorder of thyroid, unspecified; Z88.0 Allergy status to penicillin; Z88.1 Allergy status to other antibiotic agents; Z88.8 Allergy status to other drugs, medicaments and biological substances; Z79.899 Other long term (current) drug therapy
CPT/HCPCS: 71045; 80053; 83690; 83880; 84484; 85025; 85610; 85730; 93005; 99285

== ENCOUNTER 2018-10-03 08:41 | Inpatient (IN) | payer OTHER, MEDICAID ==
[~2018-10-03] VITALS: Ht 167.6 cm; Wt 64.0 kg
[2018-10-03 08:41] VITALS: BP 102/45
--- NOTE | 2018-10-03 08:42 | NUR ---
PT BIBA ALS TO BED 11
[2018-10-03] MEDS ORDERED: NACL 0.9% 500 ML IV ONE (09:00)
--- NOTE | 2018-10-03 09:00 | NUR ---
rosannea amr bls with c/o witnessed by caregiver by bedside two syncopal episodes (per caregiver first episode lasting approx 10 seconds, second episode lasting 1 min 45 secs). Per caregiver, syncopal episode occurred when patient went from sitting on toliet to stand upright. Per caregiver, patient has had multiple syncopal episodes throughout this year and has apt with neurologist. Per caregiver, patient hit his head on left forehead. Small hematoma to left forehead. Per caregiver, patient is at neuro baseline. GCS=14. Patient with history of mental delay. No facial asymmetry noted. Per amr report, patient hypotension on scene and patient is hypotension on arrival. wn=322/45 on arrival. 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
--- NOTE | 2018-10-03 09:03 | NUR ---
XRAY AT BEDSIDE
--- NOTE | 2018-10-03 09:15 | NUR ---
PT TAKEN TO CT VIA DIANA
[2018-10-03 10:15] LABS: BASOPHILS # (AUTO) 0.1 K/uL (0.00-0.22); BASOPHILS % (AUTO) 1.6 % (0.0-2.0); EOSINOPHILS % (AUTO) 1.1 % (0.0-4.0); HEMATOCRIT 40.3 % (36-52); HEMOGLOBIN 13.3 g/dL (12.0-18.0); LYMPHOCYTES # (AUTO) 0.8 K/uL (2.0-11.5); LYMPHOCYTES % (AUTO) 18.1 % (20.5-51.1); MEAN CORPUSCULAR HEMOGLOBIN 32 pg (27-31); MEAN CORPUSCULAR HGB CONC 33 g/dL (33-37); MEAN CORPUSCULAR VOLUME 97.9 fL (80-94); MONOCYTES # (AUTO) 0.6 K/uL (0.8-1.0); MONOCYTES % (AUTO) 14.6 % (1.7-9.3); NEUTROPHILS # (AUTO) 2.8 K/uL (1.8-7.7); NEUTROPHILS % (AUTO) 64.6 % (42.2-75.2); PLATELET COUNT (AUTO) 122 K/uL (140-450); RED BLOOD CELL COUNT(AUTO) 4.12 MIL/uL (4.20-6.10); RED CELL DISTRIBUTION WIDTH 13.3 % (11.6-13.7); WHITE BLOOD COUNT (AUTO) 4.3 K/uL (4.8-10.8)
[2018-10-03 10:18] LABS: ANION GAP 11.2 (8-16); CARBON DIOXIDE 30.2 mmol/L (21-32); CHLORIDE 99 mmol/L (98-107); CREATININE 1.3 mg/dL (0.7-1.3); GLUCOSE 69 mg/dL (74-106); POTASSIUM 4.4 mmol/L (3.5-5.1); SODIUM SERUM 136 mmol/L (136-145); UREA NITROGEN, BLOOD 18 mg/dL (7-18)
[2018-10-03 10:22] LABS: PROTHROMBIN TIME 9.7 secs (10.8-13.4)
[2018-10-03 10:24] LABS: ALBUMIN 3.7 g/dL (3.4-5.0); ASPARTATE AMINOTRANSFERASE 27 U/L (15-37); TOTAL BILIRUBIN 0.3 mg/dL (0.0-1.0)
[2018-10-03] MEDS ORDERED: DEXTROSE 50% 50 ML SYR IVP ONE (10:30)
[2018-10-03 10:56] LABS: APPEARANCE,URINE CLEAR (CLEAR); BILIRUBIN,URINE NEGATIVE (NEGATIVE); BLOOD, URINE NEGATIVE (NEGATIVE); COLOR,URINE YELLOW (YELLOW); LEUKOCYTE ESTERASE ,URINE NEGATIVE (NEGATIVE); NITRITE, URINE NEGATIVE (NEGATIVE); PH,URINE 1.005 (5.0-9.0); UGLUCOSE NEGATIVE (NEGATIVE)
--- NOTE | 2018-10-03 10:56 | NUR ---
8 OZ OF ORANGE JUICE GIVEN, PT TOLERATED WELL. BLOOD SUGAR RECHECKED, 97 AT THIS TIME.
--- NOTE | 2018-10-03 10:56 | NUR ---
unable to established IV saline lock; er md cote made aware; new order for PICC line; household refrigeration mechanic made aware; awaiting eta for PICC nurse
[2018-10-03 11:01] LABS: RBC,URINE NONE SEEN /HPF (0-5); WBC,URINE 0-5 (RARE) /HPF (0-5)
[2018-10-03] MEDS ORDERED: ZOLPIDEM 5 MG TAB PO PRN (11:05)
[2018-10-03] MEDS ORDERED: DOCUSATE SODIUM 100 MG GELCAP PO PRN (11:05)
[2018-10-03] MEDS ORDERED: ONDANSETRON 4 MG/2 ML VIAL IM/IVP PRN (11:05)
[2018-10-03] MEDS ORDERED: LORazepam 2 MG/ML VIAL IM/IVP PRN (11:05)
[2018-10-03] MEDS ORDERED: HYDROcodone/APAP 5/325 MG 1 TAB TAB PO PRN (11:05)
[2018-10-03] MEDS ORDERED: ACETAMINOPHEN 325 MG TAB PO PRN (11:05)
[2018-10-03] MEDS ORDERED: [UNRECOGNIZED DRUG - CODE] GT/PO (11:20)
[2018-10-03] MEDS ORDERED: DIVA500T1 GT/PO (11:20)
[2018-10-03] MEDS ORDERED: METO-485 GT/PO (11:23)
[2018-10-03] MEDS ORDERED: FERR325E14 GT/PO (11:23)
--- NOTE | 2018-10-03 11:33 | NUR ---
PT TAKEN TO FLOOR BY ALISIA BOWERS AND EMT TAWANDA
[2018-10-03 11:35] VITALS: BP 161/110
--- NOTE | 2018-10-03 11:35 | NUR ---
PATIENT WAS TRANSFERRED TO THE UNIT FROM ED IN [facility]. REPORT WAS GIVEN AT BEDSIDE. VS WAS TAKEN, MRSA WAS SWABBED, CHAMBER WALKER WAS PLACED. PATIENT WAS AWAKE, RESPONSIVE TO NAME AND COOPERATIVE. RESPIRATION EVEN, UNLABOR ON ROOM AIR. SKIN DRY AND WARM. NO IV ACCESS AT THIS TIME. GTUBE PATENT AND INTACT. PATIENT WAS ORIENTED TO ROOM, STAFF, AND CALL LIGHT. PLAN OF CARE WAS DISCUSSED WITH PATIENT. BED AT LOW POSITION, SIDE RAILS UP. CALL LIGHT WITHIN REACH
--- NOTE | 2018-10-03 11:40 | NUR ---
Patient will be admitted to care of DR. IQBAL. Admited to TELE. Will go to room 107B. Belongings list completed. Report to ALISIA LAUREANO.
[2018-10-03 12:30] VITALS: BP 143/58
[2018-10-03 12:44] LABS: MAGNESIUM 2.2 mg/dL (1.8-2.4); PHOSPHORUS 2.4 mg/dL (2.5-4.9)
[2018-10-03 12:45] LABS: THYROID STIMULATING HORMONE 3.72 uIU/mL (0.34-3.74)
[2018-10-03] MEDS ORDERED: LORazepam 1 MG TAB PO PRN (12:55)
[2018-10-03] MEDS ORDERED: ACETAMINOPHEN 325 MG TAB GT PRN (12:55)
[2018-10-03 13:16] LABS: BARBITURATE, URINE NEG. ng/ml (NEG <=200); BENZODIAZEPINE, URINE NEG. ng/mL (NEG <=200); CANNABINOID, URINE NEG. ng/mL (NEG <=50); COCAINE, URINE NEG. ng/mL (NEG <=300); OPIATE, URINE NEG. ng/mL (NEG <=2000); PHENCYCLIDINE SCREEN,URINE NEG. ng/mL (NEG <=25)
[2018-10-03] MEDS ORDERED: DIVALPROEX SPRINKLES 125 MG CAPDR GT SCH (13:18)
[2018-10-03] MEDS ORDERED: SODIUM PHOS / POTASSIUM PHOS 1 PKT PDR GT SCH (14:00)
--- NOTE | 2018-10-03 14:00 | NUR ---
VACCINATION STATUS WAS UNOBTAINABLE. TIARA, TURFGRASS MANAGEMENT PROFESSOR WAS CALLED, UNABLE TO REACH OR LEAVE VOICEMAIL
--- NOTE | 2018-10-03 14:00 | NUR ---
PICC LINE CONSENT WAS OBTAINED BY [facility]. PICC LINE NURSE IS AT BEDSIDE.
[2018-10-03] MEDS: CARBIDOPA/LEVODOPA 25/100 MG 1 TAB GT SCH ×2 (14:59→17:15)
[2018-10-03 16:00] VITALS: BP 113/59
--- NOTE | 2018-10-03 16:00 | NUR ---
PATIENT WAS AWAKE, ALERT. RESPIRATION EVEN, UNLABOR ON ROOM AIR. FLACC 0. NO DISTRESS NOTED AT THIS TIME.
[2018-10-03] MEDS ORDERED: METOCLOPRAMIDE HCL 5 MG GT/PO SCH (16:30)
[2018-10-03] MEDS: NACL 0.9% 1,000 ML IV SCH (16:54)
[2018-10-03] MEDS: METOCLOPRAMIDE 10 MG/10 ML SYRP UDC GT SCH (17:15)
--- NOTE | 2018-10-03 18:30 | NUR ---
PATIENT AWAKE, ALERT. RESPIRATION EVEN, UNLABOR ON ROOM AIR. PICC LINE PATENT AND INTACT. FLACC 0. NO DISTRESS NOTED AT THIS TIME
--- NOTE | 2018-10-03 19:22 | NUR ---
ENDORSEMENT GIVEN TO QUALITY CONTROL INDUSTRIAL ENGINEER NURSE. PATIENT IS STABLE AT THIS TIME
--- NOTE | 2018-10-03 19:25 | NUR ---
RECEIVED PT FROM GUANAKO CRUMP PT IS AWAKE MENTALLY CHALLENGED CONFUSED NONVERBAL FOLLOW SIMPLES COMMANDS, IV ON RT UA PICC LINE INFUSING WELL ON TELEMETRY SR, ABD G TUBE PATENT ZERO RESIDUAL INITIAL ASSESSMENT DONE
[2018-10-03 20:00] VITALS: BP 135/73
[2018-10-03] MEDS: DIVALPROEX SPRINKLES 125 MG CAPDR GT SCH (21:20)
[2018-10-03] MEDS: TAMSULOSIN 0.4 MG CAP GT SCH (21:21)
--- NOTE | 2018-10-03 22:55 | NUR ---
PT REPOSITIONED Q2H NOT DISTRESS NOTED ON TELMETRY SR, LINEN CHANGED
[2018-10-04] VITALS (7 sets, daily range): BP systolic 101–156; BP diastolic 42–73
--- NOTE | 2018-10-04 00:38 | NUR ---
SPONGE BATH GIVEN LINEN CHANGED PT HAS A BM ON TELMETRY SR REPOSITIONED Q2H
--- NOTE | 2018-10-04 03:00 | NUR ---
PT AWAKE REPOSITIONED Q2H ON TELMETRY SR NOT DISTRES NOTED
--- NOTE | 2018-10-04 04:41 | NUR ---
LINEN CHANGED INCONTINENT ON TELE SR REPOSITIONED Q2H
[2018-10-04] MEDS: NACL 0.9% 1,000 ML IV SCH ×3 (05:44→23:31)
[2018-10-04] MEDS: LANSOPRAZOLE 30 MG CAPDR PO SCH (05:46)
[2018-10-04] MEDS: LEVOTHYROXINE 0.075 MG TAB GT SCH (05:46)
[2018-10-04] MEDS: METOCLOPRAMIDE 10 MG/10 ML SYRP UDC GT SCH ×3 (05:47→16:42)
--- NOTE | 2018-10-04 06:30 | NUR ---
PT REPOSITIONED IV FLUIDS INFUSING WELL ON RT UA ON TELEMETRY SR NOT DISTRESS NOTED
[2018-10-04 06:33] LABS: CHOL/HDL RATIO 3.8 (1-4.5)
--- NOTE | 2018-10-04 07:50 | NUR ---
RECEIVED REPORT FROM CATHRYN CRUMP FOR CONTINUITY OF CARE . PATIENT SLEEPING BUT EASILY AWAKE NON-VERBAL FOLLOW COMMANDS . NO S/S OF RESP DISTRESS NOTED. NO DISCOMFORT NOTED. PICC LINE DOROTHEA INTACT AND PATENT IVF INFUSING WELL. INCONTINENT FOR BOWEL AND BLADDER. WILL REPOSITION Q 2 HRS. PLAN OF CARE DISCUSSED WITH THE PATIENT VITALS STABLE WILL CONTINUE TO MONITOR.
--- NOTE | 2018-10-04 08:23 | NUR ---
PATIENT HAS BEEN SCREENED AND CATEGORIZED HIGH NUTRITION RISK. PATIENT WILL BE SEEN WITHIN 1-2 DAYS OF ADMISSION. 10/04/[address]
[2018-10-04] MEDS ORDERED: DUTASTERIDE 0.5 MG GT SCH (09:00)
[2018-10-04] MEDS ORDERED: NON-FORMULARY ITEM (Lactulose 10 GM) GT SCH (09:00)
[2018-10-04] MEDS ORDERED: NON-FORMULARY ITEM (Omeprazole (Omeprazole) 20 MG) GT SCH (09:00)
[2018-10-04] MEDS ORDERED: RASAGILINE MESYLATE 1 MG GT SCH (09:00)
--- NOTE | 2018-10-04 09:00 | NUR ---
DUE MEDS GIVEN TOLERATED WELL . ASSIST PT WITH BREAKFAST NO SWALLOWING DIFFICULTIES NOTED , ATE 100% WILL OBSERVE PT.
[2018-10-04] MEDS: ASCORBIC ACID 500 MG/5 ML ORASYR GT SCH (09:47)
[2018-10-04] MEDS: LACTULOSE 20 GM/30 ML UDC GT SCH (09:47)
[2018-10-04] MEDS: DIVALPROEX SPRINKLES 125 MG CAPDR GT SCH ×2 (09:48→20:36)
[2018-10-04] MEDS: amLODIPine 5 MG TAB GT SCH (09:49)
[2018-10-04] MEDS: POLYETHYLENE GLYCOL 17 GM/PKT GT SCH (09:50)
[2018-10-04] MEDS: SORBITOL 70% 30 ML UDC GT SCH (09:51)
[2018-10-04] MEDS: CARBIDOPA/LEVODOPA 25/100 MG 1 TAB GT SCH ×3 (09:51→16:42)
[2018-10-04 10:24] LABS: BASOPHILS % (AUTO) 0.1 % (0.0-2.0); EOSINOPHILS % (AUTO) 0.1 % (0.0-4.0); HEMATOCRIT 37.8 % (36-52); HEMOGLOBIN 12.4 g/dL (12.0-18.0); LYMPHOCYTES # (AUTO) 0.7 K/uL (2.0-11.5); LYMPHOCYTES % (AUTO) 8.5 % (20.5-51.1); MEAN CORPUSCULAR HEMOGLOBIN 32 pg (27-31); MEAN CORPUSCULAR HGB CONC 33 g/dL (33-37); MONOCYTES # (AUTO) 0.5 K/uL (0.8-1.0); MONOCYTES % (AUTO) 5.5 % (1.7-9.3); NEUTROPHILS # (AUTO) 7.4 K/uL (1.8-7.7); NEUTROPHILS % (AUTO) 85.8 % (42.2-75.2); PLATELET COUNT (AUTO) 110 K/uL (140-450); RED BLOOD CELL COUNT(AUTO) 3.86 MIL/uL (4.20-6.10); RED CELL DISTRIBUTION WIDTH 13.4 % (11.6-13.7); WHITE BLOOD COUNT (AUTO) 8.6 K/uL (4.8-10.8)
--- NOTE | 2018-10-04 10:30 | NUR ---
MORNING CARE GIVEN TOLERATED WELL. G-TUBE SITE CLEAN AND DRY FLUSHED WITH 60ML H2O KEPT PATIENT CLEAN AND DRY.
[2018-10-04 10:42] LABS: ALBUMIN 2.9 g/dL (3.4-5.0); ANION GAP 17.2 (8-16); ASPARTATE AMINOTRANSFERASE 30 U/L (15-37); CARBON DIOXIDE 22.1 mmol/L (21-32); CHLORIDE 100 mmol/L (98-107); CREATININE 1.2 mg/dL (0.7-1.3); GLUCOSE 103 mg/dL (74-106); MAGNESIUM 1.7 mg/dL (1.8-2.4); PHOSPHORUS 2.2 mg/dL (2.5-4.9); POTASSIUM 4.3 mmol/L (3.5-5.1); SODIUM SERUM 135 mmol/L (136-145); TOTAL BILIRUBIN 0.3 mg/dL (0.0-1.0); UREA NITROGEN, BLOOD 18 mg/dL (7-18)
--- NOTE | 2018-10-04 12:00 | NUR ---
ASSIST PATIENT WITH FEEDING NO SWALLOWING DIFFICULTY NOTED VITALS STABLE AT THIS TIME.
--- NOTE | 2018-10-04 13:47 | NUR ---
CALLED TIARA AT [facility] FOR PT'S RESIDENTS AND LEFT A MESSAGE TO BRING 3 HOME MEDS.
--- NOTE | 2018-10-04 15:25 | NUR ---
10/04/18 RD INITIAL ASSESSMENT COMPLETED PLEASE REFER TO NUTRITION ASSESSMENT UNDER CARE ACTIVITY FOR ESTIMATED NUTRITIONAL NEEDS. 1. CONTINUE NA 2 GM PUREE DIET TOLERATED 2. IF PO <50%, CONSIDER INITIATING TUBE FEED WITH VITAL AF 1.2 AT A GOAL RATE OF 65 ML/HR, STARTING AT 10 ML/HR, ADVANCING 20 ML/HR Q6H -THIS WILL PROVIDE 1560 ML OF VOLUME, 1872 KCAL, AND 87 G PROTEIN. THIS MEETS 96% OF ESTIMATED ENERGY AND 112% PROTEIN NEEDS. 3. RECOMMEND FREE WATER FLUSH [address] TO FOLLOW-UP 3-5 DAYS, MODERATE RISK LUCIANA CUM[address]INGS RD Addendum: 10/05/18 at [address] *PT IS HIGH RISK, WILL BE FOLLOWED-UP WITHIN 2-3 DAYS. 1. CONTINUE NA 2 GM PUREE DIET TOLERATED 2. IF PO <50%, CONSIDER INITIATING TUBE FEED WITH VITAL AF 1.2 AT A GOAL RATE OF 65 ML/HR, STARTING AT 10 ML/HR, ADVANCING 20 ML/HR Q6H -THIS WILL PROVIDE 1560 ML OF VOLUME, 1872 KCAL, AND 87 G PROTEIN. THIS MEETS 96% OF ESTIMATED ENERGY AND 112% PROTEIN NEEDS. 3. RECOMMEND FREE WATER FLUSH [address] TO FOLLOW-UP 2-3 DAYS, HIGH RISK LUCIANA CUMMINGS RD
[2018-10-04] MEDS ORDERED: SODIUM PHOS / POTASSIUM PHOS 1 PKT PDR PO SCH (17:00)
--- NOTE | 2018-10-04 17:41 | NUR ---
TIARA FROM [facility] CALLED PACK UPDATE PATIENT'S CONDITION ,STATED WILL BRING HOME MEDS TONIGHT OR TOMORROW
[2018-10-04] MEDS: MIDODRINE 5 MG TAB GT SCH (18:08)
--- NOTE | 2018-10-04 19:15 | NUR ---
RECEIVED PT IN STABLE CONDITION FROM AM NURSE FOR CONTINUITY OF CARE. PT IS AWAKE,BUT CONFUSED. HAS HX :MENTAL RETARDATION. ON TELE MONITOR-SR. ON BEDREST. WITH NO ACUTE DISTRESS NOTED. HAS IVF INFUSING WELL ON THE RT UPPER ARM PICC LINE. CLEAR AND PATENT. GT CLAMPED. CHECKED PLACEMENT AND PATENT. SIDE RAILS UP X2 ,PADDED FOR SEIZURE PRECAUTION. BED ON LOW POSITION. FREQUENT ROUNDS NEEDED. CALL LIGHT WITHIN EASY REACH. ON CONTACT ISOLATION DUE TO HX:MRSA. WILL CONTINUE TO MONITOR.
[2018-10-04] MEDS: TAMSULOSIN 0.4 MG CAP GT SCH (20:36)
--- NOTE | 2018-10-04 20:45 | NUR ---
HAD A SOFT BM . CLEANED AND KEPT DRY. THEN REPOSITIONED FOR COMFORT.
--- NOTE | 2018-10-04 22:30 | NUR ---
REPOSITIONED FOR COMFORT. NO S/S OF ANY DISCOMFORT NOTED.
--- NOTE | 2018-10-05 00:10 | NUR ---
PT AWAKE. REPOSITIONED FOR COMFORT. NO S/S OF ANY DISTRESS NOTED. WILL CONTINUE TO MONITOR.
--- NOTE | 2018-10-05 01:00 | NUR ---
PT SLEEPING, NO S/S OF ANY DISTRESS NOR DISCOMFORT NOTED.
--- NOTE | 2018-10-05 03:00 | NUR ---
PT IS AWAKE. REPOSITIONED FOR COMFORT. NO S/S OF ANY DISTRESS NOTED.
[2018-10-05 04:00] VITALS: BP 151/51
--- NOTE | 2018-10-05 06:00 | NUR ---
PT REPOSITIONED FOR COMFORT. NO DISTRESS NOTED.
[2018-10-05] MEDS: LANSOPRAZOLE 30 MG CAPDR PO SCH (06:12)
[2018-10-05] MEDS: MIDODRINE 5 MG TAB GT SCH ×4 (06:12→19:00)
[2018-10-05] MEDS: METOCLOPRAMIDE 10 MG/10 ML SYRP UDC GT SCH ×3 (06:19→17:00)
[2018-10-05] MEDS: LEVOTHYROXINE 0.075 MG TAB GT SCH (06:21)
[2018-10-05 06:30] LABS: BASOPHILS % (AUTO) 0.3 % (0.0-2.0); EOSINOPHILS % (AUTO) 0.2 % (0.0-4.0); HEMATOCRIT 33.5 % (36-52); LYMPHOCYTES # (AUTO) 1.6 K/uL (2.0-11.5); LYMPHOCYTES % (AUTO) 25.6 % (20.5-51.1); MEAN CORPUSCULAR HEMOGLOBIN 32 pg (27-31); MEAN CORPUSCULAR HGB CONC 33 g/dL (33-37); MEAN CORPUSCULAR VOLUME 97.8 fL (80-94); MONOCYTES # (AUTO) 0.5 K/uL (0.8-1.0); MONOCYTES % (AUTO) 7.5 % (1.7-9.3); NEUTROPHILS # (AUTO) 4.3 K/uL (1.8-7.7); NEUTROPHILS % (AUTO) 66.4 % (42.2-75.2); PLATELET COUNT (AUTO) 93 K/uL (140-450); RED BLOOD CELL COUNT(AUTO) 3.42 MIL/uL (4.20-6.10); RED CELL DISTRIBUTION WIDTH 13.4 % (11.6-13.7); WHITE BLOOD COUNT (AUTO) 6.4 K/uL (4.8-10.8)
[2018-10-05 06:53] LABS: PHOSPHORUS 1.8 mg/dL (2.5-4.9)
[2018-10-05 07:07] LABS: ANION GAP 12.3 (8-16); CARBON DIOXIDE 26.6 mmol/L (21-32); CHLORIDE 103 mmol/L (98-107); GLUCOSE 91 mg/dL (74-106); POTASSIUM 3.9 mmol/L (3.5-5.1); SODIUM SERUM 138 mmol/L (136-145); UREA NITROGEN, BLOOD 18 mg/dL (7-18)
--- NOTE | 2018-10-05 07:20 | NUR ---
RECEIVED BEDSIDE REPORT FROM GIFTS OFFICER NURSE. PT IN STABLE CONDITION. APHASIC. SLEEPING IN BED, AROUSABLE BY VOICE. DOES NOT FOLLOW COMMANDS. NO S/S DISTRESS. FLACC 0. SKIN INTACT. G-TUBE SITE CLEAN AND DRY. G-TUBE CLAMPED AT THIS TIME. PT ABLE TO EAT PUREE DIET. LT PICC LINE PATENT AND ASYMPTOMATIC, INFUSING IVF PER DR. BRADSHAW. BOARD UPDATED. ALL SAFETY PRECAUTIONS IN PLACE, WILL CONTINUE TO MONITOR.
--- NOTE | 2018-10-05 07:20 | NUR ---
ENDORSED PT IN STABLE CONDITION TO AM NURSE.
[2018-10-05 08:00] VITALS: BP 127/47
--- NOTE | 2018-10-05 08:10 | NUR ---
RECEIVED BEDSIDE REPORT FROM MATCHER NURSE. PT IN STABLE CONDITION. APHASIC. SLEEPING IN BED, AROUSABLE BY VOICE. DOES NOT FOLLOW COMMANDS. NO S/S DISTRESS. FLACC 0. SKIN INTACT. G-TUBE SITE CLEAN AND DRY. G-TUBE CLAMPED AT THIS TIME. PT ABLE TO EAT PUREE DIET. LT PICC LINE PATENT AND ASYMPTOMATIC, INFUSING IVF PER DR. BRADSHAW. BOARD UPDATED. ALL SAFETY PRECAUTIONS IN PLACE, WILL CONTINUE TO MONITOR. Addendum: 10/05/18 at 0812 by Ebony Reyes Meng, RN REAL TIME [id number]
--- NOTE | 2018-10-05 08:23 | NUR ---
G-TUBE IS OUT OF PT. BALLOON DEFLATED. NOTIFIED BAKERY PASTRY [employer]NSH[employer]. PLACED TURNER CATH IN G-TUBE SITE TO PREVENT SITE CLOSURE. WILL NOTIFY DR. VARELA.
--- NOTE | 2018-10-05 08:34 | NUR ---
NOTIFIED DR. VARELA THAT G-TUBE IS OUT.
--- NOTE | 2018-10-05 08:43 | NUR ---
TURNER CATH REMOVED FROM G-TUBE SITE AND NEW G-TUBE INSERTED BY SUDHAKAR CRUMP FROM OR. PT TOLERATED WELL.
--- NOTE | 2018-10-05 08:51 | NUR ---
PT SITTING UP IN BED, EATING BREAKFAST. NO S/S DISTRESS.
[2018-10-05] MEDS: amLODIPine 5 MG TAB GT SCH (09:00)
--- NOTE | 2018-10-05 09:10 | NUR ---
NORVASC NOT ADMINISTERED PER PARAMETERS DUE TO DBP 47 AND HR 56. Addendum: 10/05/18 at 0917 by Ebony Reyes Meng, RN HEPARIN SUBQ NOT ADMINISTERED DUE TO PLT COUNT 93.
[2018-10-05] MEDS: ASCORBIC ACID 500 MG/5 ML ORASYR GT SCH (09:32)
[2018-10-05] MEDS: POLYETHYLENE GLYCOL 17 GM/PKT GT SCH (09:32)
[2018-10-05] MEDS: LACTULOSE 20 GM/30 ML UDC GT SCH (09:32)
[2018-10-05] MEDS: CARBIDOPA/LEVODOPA 25/100 MG 1 TAB GT SCH ×3 (09:33→17:00)
[2018-10-05] MEDS: DIVALPROEX SPRINKLES 125 MG CAPDR GT SCH ×2 (09:33→21:22)
[2018-10-05] MEDS: SORBITOL 70% 30 ML UDC GT SCH (09:34)
--- NOTE | 2018-10-05 09:47 | NUR ---
NOTIFIED DR. VARELA THAT NORVASC AND HEPARIN SUBQ WERE NOT ADMINISTERED. ALSO NOTIFIED THAT NEW G-TUBE WAS PLACED.
--- NOTE | 2018-10-05 09:52 | NUR ---
ASKED PT TO TAKE ORTHOSTATIC HYPOTENSION VALUES PER DR. VARELA ORDERS.
--- NOTE | 2018-10-05 10:39 | NUR ---
GAVE ORTHOSTATIC HYPOTENSION VALUES TO DR. VARELA. ALSO NOTIFIED DR. VARELA THAT PT WAS ABLE TO WALK 10 FT WITH PHYSICAL THERAPY.
[2018-10-05 12:00] VITALS: BP 135/54
--- NOTE | 2018-10-05 12:07 | NUR ---
RADIOLOGY HERE TO TAKE ABDOMEN X-RAY WITH CONTRAST.
--- NOTE | 2018-10-05 12:27 | NUR ---
BP NOW IS 135/51, MAP 81, HR 70. MIDODRINE NOT ADMINISTERED. Addendum: 10/05/18 at 1256 by Ebony Reyes Meng, RN BP 135/54, MAP 81, HR 70
--- NOTE | 2018-10-05 15:35 | NUR ---
CALLED TIARA [phone] REGARDING THE THREE HOME MEDS TO BE BROUGHT INTO THE HOSPITAL. NO ONE ANSWERED THE CALL AND VOICEMAIL BOX IS FULL. WILL ATTEMPT TO CALL AGAIN LATER.
[2018-10-05 16:00] VITALS: BP 120/55
[2018-10-05] MEDS: NACL 0.9% 1,000 ML IV SCH (17:00)
--- NOTE | 2018-10-05 17:42 | NUR ---
CAREGIVERS AT BEDSIDE TO FEED PT. WILL CONTINUE TO MONITOR.
--- NOTE | 2018-10-05 18:30 | NUR ---
Child Care Coordinator Notes: I attempted to contact Patient's head cleaning porter/Caregiver Renae Wagner at . No response and I left her a voice mail Message with direct contact information and a request for a call back.
--- NOTE | 2018-10-05 19:00 | NUR ---
BP 124/62, MAP 100, HR 70
--- NOTE | 2018-10-05 19:07 | NUR ---
ENDORSED POC TO BRINE MIXER OPERATOR RN. PT IN STABLE CONDITION.
--- NOTE | 2018-10-05 19:08 | NUR ---
RECEIVED PT IN STABLE CONDITION FROM AM NURSE FOR CONTINUITY OF CARE. PT IS AWAKE,BUT CONFUSED. HAS HX :MENTAL RETARDATION. ON TELE MONITOR, ON BEDREST. WITH NO ACUTE DISTRESS NOTED. HAS IVF INFUSING WELL ON THE RT UPPER ARM PICC LINE. CLEAR AND PATENT. GT CLAMPED. CHECKED PLACEMENT AND PATENT. SIDE RAILS UP X2 ,PADDED FOR SEIZURE PRECAUTION. BED ON LOW POSITION. FREQUENT ROUNDS NEEDED. CALL LIGHT WITHIN EASY REACH. WILL CONTINUE TO MONITOR.
[2018-10-05 20:00] VITALS: BP 141/62
--- NOTE | 2018-10-05 20:30 | NUR ---
PT AWAKE, NO SIGNS OF DISTRESS, FREQUENT CHECKS DONE, FALL PRECAUTIONS MAINTAINED.
[2018-10-05] MEDS: TAMSULOSIN 0.4 MG CAP GT SCH (21:23)
[2018-10-06] VITALS: BP 140/60
--- NOTE | 2018-10-06 02:26 | NUR ---
PT SLEEPING NO PAIN NOTED AT THIS TIME. NO RESPIRATORY DISTRESS. WILL CONTINUE TO MONITOR
[2018-10-06 04:00] VITALS: BP 140/60
[2018-10-06] MEDS: LEVOTHYROXINE 0.075 MG TAB GT SCH (06:10)
[2018-10-06] MEDS: LANSOPRAZOLE 30 MG CAPDR PO SCH (06:10)
[2018-10-06] MEDS: MIDODRINE 5 MG TAB GT SCH (07:05)
[2018-10-06 07:28] LABS: BASOPHILS % (AUTO) 0.4 % (0.0-2.0); EOSINOPHILS % (AUTO) 0.5 % (0.0-4.0); HEMATOCRIT 31.5 % (36-52); HEMOGLOBIN 10.5 g/dL (12.0-18.0); LYMPHOCYTES # (AUTO) 1.6 K/uL (2.0-11.5); LYMPHOCYTES % (AUTO) 26.1 % (20.5-51.1); MEAN CORPUSCULAR HEMOGLOBIN 33 pg (27-31); MEAN CORPUSCULAR HGB CONC 33 g/dL (33-37); MEAN CORPUSCULAR VOLUME 97.3 fL (80-94); MONOCYTES # (AUTO) 0.6 K/uL (0.8-1.0); NEUTROPHILS # (AUTO) 3.8 K/uL (1.8-7.7); PLATELET COUNT (AUTO) 100 K/uL (140-450); RED BLOOD CELL COUNT(AUTO) 3.24 MIL/uL (4.20-6.10); RED CELL DISTRIBUTION WIDTH 13.2 % (11.6-13.7); WHITE BLOOD COUNT (AUTO) 6.1 K/uL (4.8-10.8)
[2018-10-06 07:35] LABS: ANION GAP 7.4 (8-16); CARBON DIOXIDE 29.6 mmol/L (21-32); CHLORIDE 105 mmol/L (98-107); GLUCOSE 89 mg/dL (74-106); SODIUM SERUM 138 mmol/L (136-145); UREA NITROGEN, BLOOD 15 mg/dL (7-18)
--- NOTE | 2018-10-06 07:35 | NUR ---
RECEIVED REPORT FROM AFTER SCHOOL TEACHER NURSE, PT IS RESTING IN BED, RIGHT LATERAL POSITION, PT IS AAOX1, NON-VERBAL, ON ROOM AIR, PICC LINE ON RIGHT UPPER ARM, PATENT, INTACT, FLUSHING WELL, PT HAS G-TUBE IN PLACE, CLAMPED, NO FEEDING RUNNING, NO S/S OF RESPIRATORY DISTRESS OR DISCOMFORT NOTED, DISCUSSED PLAN OF CARE WITH PT, PT UNABLE TO VERBALIZE UNDERSTANDING, SAFETY/FALL/SEIZURE PRECAUTIONS ARE IN PLACE, CALL LIGHT WITHIN REACH, WILL CONTINUE TO MONITOR.
[2018-10-06 07:36] LABS: PHOSPHORUS 2.1 mg/dL (2.5-4.9)
[2018-10-06 08:00] VITALS: BP 101/56
[2018-10-06] MEDS: SORBITOL 70% 30 ML UDC GT SCH (08:36)
[2018-10-06] MEDS: METOCLOPRAMIDE 10 MG/10 ML SYRP UDC GT SCH (08:37)
[2018-10-06] MEDS: ASCORBIC ACID 500 MG/5 ML ORASYR GT SCH (08:37)
[2018-10-06] MEDS: LACTULOSE 20 GM/30 ML UDC GT SCH (08:37)
[2018-10-06] MEDS: DIVALPROEX SPRINKLES 125 MG CAPDR GT SCH (08:38)
[2018-10-06] MEDS: CARBIDOPA/LEVODOPA 25/100 MG 1 TAB GT SCH (08:38)
[2018-10-06] MEDS: POLYETHYLENE GLYCOL 17 GM/PKT GT SCH (08:38)
[2018-10-06] MEDS: amLODIPine 5 MG TAB GT SCH (08:39)
--- NOTE | 2018-10-06 08:45 | NUR ---
10/06/18 RD FOLLOW UP COMPLETED PLEASE REFER TO NUTRITION PROGRESS NOTE UNDER CARE ACTIVITY FOR ESTIMATED NUTRITION NEEDS. RD RECOMMENDATIONS: 1. CONTINUE ON PUREED DIET TOLERATED. 2. RD WILL F/U 3-5 DAYS; MODERATE RISK. YAMILEX INTERIANO MS, RDN
--- NOTE | 2018-10-06 09:40 | NUR ---
DUE MEDICATIONS GIVEN, PT TOLERATED WELL, CALL LIGHT WITHIN REACH.
[2018-10-06] MEDS ORDERED: PRO5 GT (09:41)
[2018-10-06 10:18] VITALS: BP 101/56
[2018-10-06] MEDS ORDERED: SODIUM PHOS / POTASSIUM PHOS 1 PKT PDR GT SCH (10:30)
--- NOTE | 2018-10-06 10:30 | NUR ---
DISCHARGE INSTRUCTIONS GIVEN, PT BEING DISCHARGED TO ABILITY PATHWAY, PICC LINE REMOVED, PT TOLERATED WELL. PT STABLE UPON DISCHARGE ACCOMPANIED BY HIS CAREGIVER JOSE.
[2018-10-06] MEDS ORDERED: LATANOPROST 0.005% OP 2.5 ML BTL OP SCH (21:00)
[2018-10-13 06:10] LABS: T4 (THYROXINE) 9.5 ug/dL (4.5-12.0)
== END 2018-10-06 10:45 | disposition home or self-care (01) | DRG 73 ==
LOC: MED 08:41 → MTU 11:10
PROVIDERS: ADMIT General Practice; ATTEND General Practice
PROC: 02HV33Z Insertion of Infusion Device into Superior Vena Cava, Percutaneous Approach (ICD-10-PCS; principal; 2018-10-03)
PROC: B548ZZA Ultrasonography of Superior Vena Cava, Guidance (ICD-10-PCS; 2018-10-03)
DX: G90.9 Disorder of the autonomic nervous system, unspecified (principal); G93.41 Metabolic encephalopathy; E87.1 Hypo-osmolality and hyponatremia; I95.1 Orthostatic hypotension; E16.2 Hypoglycemia, unspecified; G40.909 Epilepsy, unspecified, not intractable, without status epilepticus; E83.39 Other disorders of phosphorus metabolism; K21.9 Gastro-esophageal reflux disease without esophagitis; I73.9 Peripheral vascular disease, unspecified; G20 Parkinson's disease; R62.50 Unspecified lack of expected normal physiological development in childhood; I25.10 Atherosclerotic heart disease of native coronary artery without angina pectoris; E03.9 Hypothyroidism, unspecified; K59.09 Other constipation; N40.0 Benign prostatic hyperplasia without lower urinary tract symptoms; I11.9 Hypertensive heart disease without heart failure; D64.9 Anemia, unspecified; D69.6 Thrombocytopenia, unspecified; E83.42 Hypomagnesemia; Z88.1 Allergy status to other antibiotic agents; Z88.0 Allergy status to penicillin; Z79.899 Other long term (current) drug therapy; Z85.528 Personal history of other malignant neoplasm of kidney; Z90.5 Acquired absence of kidney; Z93.1 Gastrostomy status
CPT/HCPCS: 36415; 70450; 71045; 74018; 76604; 80048; 80053; 80305; 81001; 82140; 82150; 82948; 83036; 83605; 83690; 83735; 83880; 84100; 84436; 84443; 84484; 85025; 85610; 85730; 87040; 87081; 93005; 93880; 97116; 99285; C1751; C1758; J1644; J7030; J8597; Q0092

== ENCOUNTER 2018-12-09 06:18 | Inpatient (IN) | payer OTHER, MEDICAID ==
[~2018-12-09] VITALS: Ht 162.6 cm; Wt 67.6 kg
[~2018-12-09 06:18] MED LIST changes: -ALEN70TA52 GT; +ALEN70TA9 GT; -AMLO10TA GT; -BACTO TP; -BISA5ECT45 RC; -DIVA250T GT; +DIVA500T1 GT/PO; +FERR325E14 GT/PO; -MAGN400S60 GT; -METO5SOL19 GT; -ONDA4ODT1 SL; +PRO5 GT; +[UNRECOGNIZED DRUG - CODE] GT/PO
[2018-12-09 06:29] VITALS: BP 162/70
[2018-12-09] MEDS ORDERED: NACL 0.9% 1,000 ML IV SCH (08:06)
[2018-12-09 08:52] LABS: HEMATOCRIT 42.9 % (36-52); MEAN CORPUSCULAR HEMOGLOBIN 32 pg (27-31); MEAN CORPUSCULAR HGB CONC 33 g/dL (33-37); MEAN CORPUSCULAR VOLUME 96.4 fL (80-94); PLATELET COUNT (AUTO) 104 K/uL (140-450); RED BLOOD CELL COUNT(AUTO) 4.45 MIL/uL (4.20-6.10); RED CELL DISTRIBUTION WIDTH 13.4 % (11.6-13.7); WHITE BLOOD COUNT (AUTO) 13.7 K/uL (4.8-10.8)
[2018-12-09 08:53] LABS: ANION GAP 9.1 (8-16); CARBON DIOXIDE 31.5 mmol/L (21-32); CHLORIDE 92 mmol/L (98-107); CREATININE 1.3 mg/dL (0.7-1.3); GLUCOSE 110 mg/dL (74-106); POTASSIUM 4.6 mmol/L (3.5-5.1); SODIUM SERUM 128 mmol/L (136-145); UREA NITROGEN, BLOOD 15 mg/dL (7-18)
[2018-12-09 08:58] LABS: MAGNESIUM 1.6 mg/dL (1.8-2.4); URIC ACID 3.6 mg/dL (2.6-7.2)
[2018-12-09 09:03] LABS: ACETONE, SERUM NEGATIVE (NEGATIVE)
[2018-12-09 09:06] LABS: ALBUMIN 3.5 g/dL (3.4-5.0); AMYLASE 34 U/L (25-115); ASPARTATE AMINOTRANSFERASE 18 U/L (15-37); LIPASE 150 U/L (73-393); TOTAL BILIRUBIN 0.4 mg/dL (0.0-1.0)
[2018-12-09 09:11] LABS: FREE T4 (FREE THYROXINE) 1.15 ng/dL (0.76-1.46); THYROID STIMULATING HORMONE 1.49 uIU/mL (0.34-3.74)
[2018-12-09 09:13] LABS: BASOPHILS % (MANUAL) 0 % (0-2); EOSINOPHILS % (MANUAL) 0 % (0-4); LYMPHOCYTES % (MANUAL) 5 % (20-46); MONOCYTES % (MANUAL) 4 % (5-12)
[2018-12-09] MEDS ORDERED: AZTREONAM 1,000 MG in DEXTROSE 5% 50 ML IV SCH (09:50)
[2018-12-09] MEDS ORDERED: AZTREONAM 1,000 MG VIAL ONE (10:23)
[2018-12-09 10:26] LABS: APPEARANCE,URINE CLEAR (CLEAR); BILIRUBIN,URINE NEGATIVE (NEGATIVE); BLOOD, URINE NEGATIVE (NEGATIVE); COLOR,URINE YELLOW (YELLOW); LEUKOCYTE ESTERASE ,URINE NEGATIVE (NEGATIVE); NITRITE, URINE NEGATIVE (NEGATIVE); PH,URINE 8.5 (5.0-9.0); UGLUCOSE NEGATIVE (NEGATIVE)
[2018-12-09] MEDS ORDERED: HYDROcodone/APAP 7.5/325 MG 1 TAB PO PRN (11:05)
[2018-12-09] MEDS ORDERED: ACETAMINOPHEN 325 MG TAB PO PRN (11:05)
[2018-12-09] MEDS ORDERED: ONDANSETRON 4 MG/2 ML VIAL IM/IVP PRN (11:05)
[2018-12-09] MEDS ORDERED: DOCUSATE SODIUM 100 MG GELCAP PO PRN (11:05)
[2018-12-09 11:27] LABS: CHOL/HDL RATIO 3.3 (1-4.5); PHOSPHORUS 3.4 mg/dL (2.5-4.9)
[2018-12-09] MEDS ORDERED: VITB12 PO (11:28)
[2018-12-09] MEDS ORDERED: DIVA250E1 PO (11:31)
[2018-12-09 12:00] VITALS: BP 160/66
[2018-12-09] MEDS: NACL 0.9% 1,000 ML IV SCH ×2 (12:30→21:01)
[2018-12-09] MEDS ORDERED: BISA-213 RC (13:35)
[2018-12-09] MEDS ORDERED: ONDA4TAB PO (13:35)
[2018-12-09] MEDS ORDERED: NA P135N RC (13:35)
[2018-12-09] MEDS ORDERED: MAGN400S60 PO (13:35)
[2018-12-09] MEDS ORDERED: METO5SOL20 PO (13:35)
[2018-12-09] MEDS ORDERED: BISACODYL 10 MG SUPP RC PRN (14:00)
[2018-12-09] MEDS ORDERED: ACETAMINOPHEN 325 MG TAB GT PRN (14:00)
[2018-12-09] MEDS ORDERED: SODIUM PHOSPHATE 118 ML ENEM RC PRN (14:00)
[2018-12-09] MEDS ORDERED: ALBUTEROL SULFATE/IPRATROPIU 3 ML SOL IH PRN (14:25)
[2018-12-09 16:00] VITALS: BP 149/57
[2018-12-09] MEDS ORDERED: MAGNESIUM OXIDE 400 MG TAB GT SCH (16:30)
[2018-12-09] MEDS: CARBIDOPA/LEVODOPA 25/100 MG 1 TAB GT SCH (17:52)
[2018-12-09] MEDS ORDERED: ALBUTEROL SULFATE/IPRATROPIU 3 ML SOL IH SCH (19:00)
[2018-12-09 19:45] VITALS: BP 134/49
[2018-12-09] MEDS: CLINDAMYCIN PHOS 600MG/D5W PM 50 ML IV SCH (20:23)
[2018-12-09] MEDS: DOCUSATE SODIUM 100 MG GELCAP PO SCH (20:23)
[2018-12-09 23:48] VITALS: BP 131/52
[2018-12-10 03:55] VITALS: BP 150/53
[2018-12-10] MEDS: CLINDAMYCIN PHOS 600MG/D5W PM 50 ML IV SCH ×3 (04:49→21:27)
[2018-12-10] MEDS: LEVOTHYROXINE 0.075 MG TAB GT SCH (05:30)
[2018-12-10] MEDS: NACL 0.9% 1,000 ML IV SCH ×2 (07:01→17:35)
[2018-12-10 07:14] LABS: BASOPHILS % (AUTO) 0.2 % (0.0-2.0); EOSINOPHILS % (AUTO) 0.2 % (0.0-4.0); HEMATOCRIT 39.4 % (36-52); HEMOGLOBIN 12.8 g/dL (12.0-18.0); LYMPHOCYTES # (AUTO) 1.2 K/uL (2.0-11.5); LYMPHOCYTES % (AUTO) 19.1 % (20.5-51.1); MEAN CORPUSCULAR HEMOGLOBIN 32 pg (27-31); MEAN CORPUSCULAR HGB CONC 33 g/dL (33-37); MEAN CORPUSCULAR VOLUME 97.4 fL (80-94); MONOCYTES # (AUTO) 0.6 K/uL (0.8-1.0); MONOCYTES % (AUTO) 9.5 % (1.7-9.3); NEUTROPHILS # (AUTO) 4.3 K/uL (1.8-7.7); PLATELET COUNT (AUTO) 93 K/uL (140-450); RED BLOOD CELL COUNT(AUTO) 4.04 MIL/uL (4.20-6.10); RED CELL DISTRIBUTION WIDTH 13.7 % (11.6-13.7); WHITE BLOOD COUNT (AUTO) 6.1 K/uL (4.8-10.8)
[2018-12-10 08:00] VITALS: BP 180/79
[2018-12-10] MEDS ORDERED: DIVALPROEX 250 MG TABEC PO SCH (09:00)
[2018-12-10 09:01] LABS: ANION GAP 7.1 (8-16); CARBON DIOXIDE 30.6 mmol/L (21-32); CHLORIDE 101 mmol/L (98-107); CREATININE 1.1 mg/dL (0.7-1.3); GLUCOSE 98 mg/dL (74-106); POTASSIUM 4.7 mmol/L (3.5-5.1); SODIUM SERUM 134 mmol/L (136-145); UREA NITROGEN, BLOOD 17 mg/dL (7-18)
[2018-12-10 09:05] LABS: MAGNESIUM 1.9 mg/dL (1.8-2.4); PHOSPHORUS 2.6 mg/dL (2.5-4.9)
[2018-12-10] MEDS: TAMSULOSIN 0.4 MG CAP GT SCH (09:42)
[2018-12-10] MEDS: CARBIDOPA/LEVODOPA 25/100 MG 1 TAB GT SCH ×3 (09:42→17:39)
[2018-12-10] MEDS: ASCORBIC ACID 500 MG TAB GT SCH (09:43)
[2018-12-10] MEDS: LACTOBACILLUS RHAMNOSUS GG 1 EACH CAP GT SCH (09:43)
[2018-12-10] MEDS: FAMOTIDINE 20 MG TAB GT SCH (09:43)
[2018-12-10] MEDS ORDERED: hydrALAZINE 20 MG/ML VIAL IVP SCH (09:45)
[2018-12-10] MEDS: POLYETHYLENE GLYCOL 17 GM/PKT GT SCH (09:46)
[2018-12-10] MEDS: DOCUSATE SODIUM 100 MG GELCAP PO SCH ×2 (09:48→21:28)
[2018-12-10] MEDS ORDERED: VALPROIC ACID 250 MG/5 ML UDC PO SCH (10:00)
[2018-12-10 12:00] VITALS: BP 152/60
[2018-12-10 16:00] VITALS: BP 127/47
[2018-12-10] MEDS: LACTULOSE 20 GM/30 ML UDC GT SCH (21:28)
[2018-12-10 23:25] VITALS: BP 134/65
[2018-12-11] MEDS: NACL 0.9% 1,000 ML IV SCH ×2 (03:24→19:44)
[2018-12-11] MEDS: CLINDAMYCIN PHOS 600MG/D5W PM 50 ML IV SCH ×3 (05:31→20:20)
[2018-12-11] MEDS: LEVOTHYROXINE 0.075 MG TAB GT SCH (05:31)
[2018-12-11 06:40] LABS: ANION GAP 9.6 (8-16); CHLORIDE 102 mmol/L (98-107); GLUCOSE 106 mg/dL (74-106); POTASSIUM 4.6 mmol/L (3.5-5.1); SODIUM SERUM 136 mmol/L (136-145); UREA NITROGEN, BLOOD 14 mg/dL (7-18)
[2018-12-11 06:52] LABS: MAGNESIUM 1.9 mg/dL (1.8-2.4); PHOSPHORUS 2.6 mg/dL (2.5-4.9)
[2018-12-11 07:13] LABS: BASOPHILS % (AUTO) 0.2 % (0.0-2.0); EOSINOPHILS % (AUTO) 0.5 % (0.0-4.0); HEMATOCRIT 37.9 % (36-52); HEMOGLOBIN 12.4 g/dL (12.0-18.0); LYMPHOCYTES % (AUTO) 17.3 % (20.5-51.1); MEAN CORPUSCULAR HEMOGLOBIN 32 pg (27-31); MEAN CORPUSCULAR HGB CONC 33 g/dL (33-37); MEAN CORPUSCULAR VOLUME 96.6 fL (80-94); MONOCYTES # (AUTO) 0.6 K/uL (0.8-1.0); MONOCYTES % (AUTO) 10.3 % (1.7-9.3); NEUTROPHILS # (AUTO) 4.1 K/uL (1.8-7.7); NEUTROPHILS % (AUTO) 71.7 % (42.2-75.2); PLATELET COUNT (AUTO) 97 K/uL (140-450); RED BLOOD CELL COUNT(AUTO) 3.92 MIL/uL (4.20-6.10); RED CELL DISTRIBUTION WIDTH 13.2 % (11.6-13.7); WHITE BLOOD COUNT (AUTO) 5.7 K/uL (4.8-10.8)
[2018-12-11 08:00] VITALS: BP 163/88
[2018-12-11] MEDS ORDERED: HYDROcodone/APAP 7.5/325 MG 1 TAB GT PRN (08:04)
[2018-12-11] MEDS ORDERED: VALPROIC ACID 250 MG/5 ML UDC PO SCH (09:00)
[2018-12-11] MEDS: MULTIVITAMIN/MINERALS 15 ML UDBTL GT SCH (09:33)
[2018-12-11] MEDS: SORBITOL 70% 30 ML UDC GT SCH (09:37)
[2018-12-11] MEDS: TAMSULOSIN 0.4 MG CAP GT SCH (09:39)
[2018-12-11] MEDS: MAGNESIUM HYDROXIDE 2400 MG/30 ML UDC GT SCH (09:39)
[2018-12-11] MEDS: ASCORBIC ACID 500 MG TAB GT SCH (09:40)
[2018-12-11] MEDS: CARBIDOPA/LEVODOPA 25/100 MG 1 TAB GT SCH ×3 (09:40→17:24)
[2018-12-11] MEDS: VALPROIC ACID 250 MG/5 ML UDC GT SCH ×2 (09:40→20:20)
[2018-12-11] MEDS: LACTOBACILLUS RHAMNOSUS GG 1 EACH CAP GT SCH (09:41)
[2018-12-11] MEDS: CYANOCOBALAMIN 1,000 MCG TAB GT SCH (09:41)
[2018-12-11] MEDS: LACTULOSE 20 GM/30 ML UDC GT SCH ×2 (09:41→20:20)
[2018-12-11] MEDS: CALCIUM CARB 600 MG TAB GT SCH (09:41)
[2018-12-11] MEDS: FAMOTIDINE 20 MG TAB GT SCH (09:41)
[2018-12-11] MEDS: POLYETHYLENE GLYCOL 17 GM/PKT GT SCH (09:42)
[2018-12-11] MEDS: DOCUSATE 100 MG/10 ML UDC GT SCH ×2 (09:42→20:20)
[2018-12-11 16:00] VITALS: BP 170/63
[2018-12-12] VITALS: BP 121/85
[2018-12-12] MEDS: CLINDAMYCIN PHOS 600MG/D5W PM 50 ML IV SCH ×3 (05:14→20:38)
[2018-12-12] MEDS: LEVOTHYROXINE 0.075 MG TAB GT SCH (05:31)
[2018-12-12 07:20] LABS: BASOPHILS % (AUTO) 0.2 % (0.0-2.0); EOSINOPHILS # (AUTO) 0.1 K/uL (0-0.4); EOSINOPHILS % (AUTO) 1.8 % (0.0-4.0); HEMATOCRIT 37.3 % (36-52); LYMPHOCYTES # (AUTO) 0.5 K/uL (2.0-11.5); LYMPHOCYTES % (AUTO) 7.7 % (20.5-51.1); MEAN CORPUSCULAR HEMOGLOBIN 31 pg (27-31); MEAN CORPUSCULAR HGB CONC 32 g/dL (33-37); MEAN CORPUSCULAR VOLUME 97.7 fL (80-94); MONOCYTES # (AUTO) 0.7 K/uL (0.8-1.0); MONOCYTES % (AUTO) 9.4 % (1.7-9.3); NEUTROPHILS # (AUTO) 5.8 K/uL (1.8-7.7); NEUTROPHILS % (AUTO) 80.9 % (42.2-75.2); PLATELET COUNT (AUTO) 92 K/uL (140-450); RED BLOOD CELL COUNT(AUTO) 3.82 MIL/uL (4.20-6.10); RED CELL DISTRIBUTION WIDTH 13.4 % (11.6-13.7); WHITE BLOOD COUNT (AUTO) 7.2 K/uL (4.8-10.8)
[2018-12-12 07:50] LABS: CREATININE 0.9 mg/dL (0.7-1.3); GLUCOSE 103 mg/dL (74-106); UREA NITROGEN, BLOOD 15 mg/dL (7-18)
[2018-12-12 07:53] LABS: MAGNESIUM 1.9 mg/dL (1.8-2.4); PHOSPHORUS 3.2 mg/dL (2.5-4.9)
[2018-12-12 08:00] VITALS: BP 167/64
[2018-12-12 08:56] LABS: ANION GAP 7.2 (8-16); CARBON DIOXIDE 21.9 mmol/L (21-32); CHLORIDE 112 mmol/L (98-107); POTASSIUM 4.1 mmol/L (3.5-5.1); SODIUM SERUM 137 mmol/L (136-145)
[2018-12-12] MEDS: VALPROIC ACID 250 MG/5 ML UDC GT SCH ×2 (09:11→20:38)
[2018-12-12] MEDS: LACTULOSE 20 GM/30 ML UDC GT SCH ×2 (09:11→20:38)
[2018-12-12] MEDS: DOCUSATE 100 MG/10 ML UDC GT SCH ×2 (09:12→20:38)
[2018-12-12] MEDS: MULTIVITAMIN/MINERALS 15 ML UDBTL GT SCH (09:12)
[2018-12-12] MEDS: SORBITOL 70% 30 ML UDC GT SCH (09:12)
[2018-12-12] MEDS: CALCIUM CARB 600 MG TAB GT SCH (09:12)
[2018-12-12] MEDS: CYANOCOBALAMIN 1,000 MCG TAB GT SCH (09:13)
[2018-12-12] MEDS: LACTOBACILLUS RHAMNOSUS GG 1 EACH CAP GT SCH (09:13)
[2018-12-12] MEDS: POLYETHYLENE GLYCOL 17 GM/PKT GT SCH (09:13)
[2018-12-12] MEDS: CARBIDOPA/LEVODOPA 25/100 MG 1 TAB GT SCH ×3 (09:13→16:05)
[2018-12-12] MEDS: TAMSULOSIN 0.4 MG CAP GT SCH (09:13)
[2018-12-12] MEDS: ASCORBIC ACID 500 MG TAB GT SCH (09:13)
[2018-12-12] MEDS: FAMOTIDINE 20 MG TAB GT SCH (09:13)
[2018-12-12] MEDS ORDERED: MULTIVITAMIN/MINERALS 15 ML UDBTL GT SCH (10:29)
[2018-12-12 16:00] VITALS: BP 142/53
[2018-12-12] MEDS: NACL 0.9% 1,000 ML IV SCH (16:05)
[2018-12-12 23:35] VITALS: BP 127/60
[2018-12-13] MEDS: LEVOTHYROXINE 0.075 MG TAB GT SCH (05:38)
[2018-12-13] MEDS: CLINDAMYCIN PHOS 600MG/D5W PM 50 ML IV SCH (05:38)
[2018-12-13 06:17] LABS: BASOPHILS % (AUTO) 0.8 % (0.0-2.0); EOSINOPHILS # (AUTO) 0.3 K/uL (0-0.4); EOSINOPHILS % (AUTO) 4.8 % (0.0-4.0); HEMATOCRIT 38.2 % (36-52); HEMOGLOBIN 12.7 g/dL (12.0-18.0); LYMPHOCYTES # (AUTO) 0.9 K/uL (2.0-11.5); LYMPHOCYTES % (AUTO) 15.4 % (20.5-51.1); MEAN CORPUSCULAR HEMOGLOBIN 32 pg (27-31); MEAN CORPUSCULAR HGB CONC 33 g/dL (33-37); MEAN CORPUSCULAR VOLUME 97.4 fL (80-94); MONOCYTES # (AUTO) 0.7 K/uL (0.8-1.0); MONOCYTES % (AUTO) 12.7 % (1.7-9.3); NEUTROPHILS # (AUTO) 3.7 K/uL (1.8-7.7); NEUTROPHILS % (AUTO) 66.3 % (42.2-75.2); PLATELET COUNT (AUTO) 103 K/uL (140-450); RED BLOOD CELL COUNT(AUTO) 3.92 MIL/uL (4.20-6.10); RED CELL DISTRIBUTION WIDTH 13.5 % (11.6-13.7); WHITE BLOOD COUNT (AUTO) 5.6 K/uL (4.8-10.8)
[2018-12-13 07:36] LABS: ANION GAP 11.6 (8-16); CHLORIDE 102 mmol/L (98-107); CREATININE 1.1 mg/dL (0.7-1.3); GLUCOSE 101 mg/dL (74-106); POTASSIUM 3.6 mmol/L (3.5-5.1); SODIUM SERUM 137 mmol/L (136-145); UREA NITROGEN, BLOOD 16 mg/dL (7-18)
[2018-12-13 07:42] LABS: MAGNESIUM 1.9 mg/dL (1.8-2.4); PHOSPHORUS 3.1 mg/dL (2.5-4.9)
[2018-12-13 08:00] VITALS: BP 147/51
[2018-12-13] MEDS ORDERED: AZIT250T3 PO (08:47)
[2018-12-13] MEDS ORDERED: FAMO20TA13 GT (08:47)
[2018-12-13] MEDS ORDERED: LACT10CA GT (08:47)
[2018-12-13] MEDS ORDERED: LACT10SO11 GT (08:47)
[2018-12-13] MEDS ORDERED: VALP-22 GT (08:47)
[2018-12-13] MEDS: SORBITOL 70% 30 ML UDC GT SCH (09:11)
[2018-12-13] MEDS: DOCUSATE 100 MG/10 ML UDC GT SCH (09:11)
[2018-12-13] MEDS: VALPROIC ACID 250 MG/5 ML UDC GT SCH (09:11)
[2018-12-13] MEDS: LACTULOSE 20 GM/30 ML UDC GT SCH (09:11)
[2018-12-13] MEDS: POLYETHYLENE GLYCOL 17 GM/PKT GT SCH (09:11)
[2018-12-13] MEDS: LACTOBACILLUS RHAMNOSUS GG 1 EACH CAP GT SCH (09:12)
[2018-12-13] MEDS: TAMSULOSIN 0.4 MG CAP GT SCH (09:12)
[2018-12-13] MEDS: CALCIUM CARB 600 MG TAB GT SCH (09:12)
[2018-12-13] MEDS: CYANOCOBALAMIN 1,000 MCG TAB GT SCH (09:12)
[2018-12-13] MEDS: MAGNESIUM HYDROXIDE 2400 MG/30 ML UDC GT SCH (09:12)
[2018-12-13] MEDS: CARBIDOPA/LEVODOPA 25/100 MG 1 TAB GT SCH (09:12)
[2018-12-13] MEDS: ASCORBIC ACID 500 MG TAB GT SCH (09:12)
[2018-12-13] MEDS: FAMOTIDINE 20 MG TAB GT SCH (09:12)
== END 2018-12-13 12:10 | disposition home or self-care (01) | DRG 178 ==
LOC: MED 06:18 → MTU 11:01
PROVIDERS: ADMIT General Practice; ATTEND General Practice
DX: J69.0 Pneumonitis due to inhalation of food and vomit (principal); K56.7 Ileus, unspecified; E87.1 Hypo-osmolality and hyponatremia; N39.0 Urinary tract infection, site not specified; J98.11 Atelectasis; I69.351 Hemiplegia and hemiparesis following cerebral infarction affecting right dominant side; G20 Parkinson's disease; K59.00 Constipation, unspecified; F79 Unspecified intellectual disabilities; E03.9 Hypothyroidism, unspecified; K21.9 Gastro-esophageal reflux disease without esophagitis; E87.8 Other disorders of electrolyte and fluid balance, not elsewhere classified; E83.42 Hypomagnesemia; G40.909 Epilepsy, unspecified, not intractable, without status epilepticus; N40.0 Benign prostatic hyperplasia without lower urinary tract symptoms; K86.9 Disease of pancreas, unspecified; I10 Essential (primary) hypertension; H40.9 Unspecified glaucoma; R13.10 Dysphagia, unspecified; E83.51 Hypocalcemia; I95.1 Orthostatic hypotension; N28.1 Cyst of kidney, acquired; Z88.1 Allergy status to other antibiotic agents; Z88.0 Allergy status to penicillin; Z79.899 Other long term (current) drug therapy; Z93.1 Gastrostomy status; Z90.5 Acquired absence of kidney; I69.320 Aphasia following cerebral infarction; I70.0 Atherosclerosis of aorta; K76.9 Liver disease, unspecified
CPT/HCPCS: 36415; 70450; 71045; 71260; 80048; 80053; 81003; 82009; 82140; 82150; 82948; 83036; 83605; 83690; 83735; 83880; 84100; 84439; 84443; 84479; 84484; 84550; 85025; 85610; 85730; 87040; 87070; 87081; 87086; 87205; 89220; 93005; 96365; 96367; 99285; C1758; J0360; J0696; J3420; J3490; J7030; J7060; Q0092; Q9967

== ENCOUNTER 2019-01-29 07:18 | Emergency (ER) | payer OTHER, MEDICAID ==
[~2019-01-29] VITALS: Ht 144.8 cm; Wt 73.5 kg
[~2019-01-29 07:18] MED LIST changes: +AZIT250T3 PO; +BISA-213 RC; +CYAN100T65 PO; -DIVA500T1 GT/PO; +FAMO20TA13 GT; -FERR325E14 GT/PO; +LACT10CA GT; -LACT10SO1 GT; +LACT10SO11 GT; +MAGN400S60 PO; +NA P135N RC; -OMEP20TC12 GT; +ONDA4TAB PO; -PRO5 GT; -TAMS0.4C96 GT; +VALP-22 GT
--- NOTE | 2019-01-29 07:18 | NUR ---
CARLOS MAHONEY, CURRENTLY AWAITING BED
[2019-01-29 07:21] VITALS: BP 142/78
--- NOTE | 2019-01-29 07:25 | NUR ---
BIBA TO ER BED 3
[2019-01-29] MEDS ORDERED: LIDOCAINE VISCOUS 2% 20 ML UDC GT ONE (07:35)
[2019-01-29] MEDS ORDERED: LIDOCAINE VISCOUS 2% 20 ML UDC ONE (07:43)
--- NOTE | 2019-01-29 08:40 | NUR ---
Patient being evaluated by physician at bedside.
--- NOTE | 2019-01-29 10:15 | NUR ---
PER GEOGRAPHIC INFORMATION SYSTEMS ANALYST, ABDOMINAL BINDER ALREADY PRESENT AND APPLIED, RN AND MD MADE AWARE
[2019-01-29 10:34] VITALS: BP 120/70
== END 2019-01-29 10:25 | disposition home or self-care (01) ==
LOC: MED 07:18
DX: K94.23 Gastrostomy malfunction (principal); K21.9 Gastro-esophageal reflux disease without esophagitis; E03.9 Hypothyroidism, unspecified; Z79.899 Other long term (current) drug therapy; Z88.0 Allergy status to penicillin; Z88.1 Allergy status to other antibiotic agents; Z88.8 Allergy status to other drugs, medicaments and biological substances
CPT/HCPCS: 43762; 74018; 99284; Q0092

== ENCOUNTER 2019-04-23 08:20 | Inpatient (IN) | payer OTHER, MEDICAID ==
[~2019-04-23] VITALS: Ht 162.6 cm; Wt 64.4 kg
--- NOTE | 2019-04-23 08:20 | NUR ---
PT EMILIANO BLS TO ER BED 08
--- NOTE | 2019-04-23 08:22 | NUR ---
PT BIB [facility] TO ER BED 8
[2019-04-23 08:27] VITALS: BP 145/65
--- NOTE | 2019-04-23 08:32 | NUR ---
DR SALOMON AT BEDSIDE
--- NOTE | 2019-04-23 08:38 | NUR ---
73 Y MALE BIBA FROM NURSING FACILITY C/O WHITE VOMITING STARTING 1715. EMS UNSURE WHETHER PT HAS GTUBE REGURGITATION OR IS VOMITING FROM MOUTH. PT WEARING BIB. AX01, ORIENTED TO SELF. GCS 11 BASELINE. BS 168 IN FIELD. NON-VERBAL. AMB WITH ASSISTANCE. VSS AT THIS TIME. BED IS DOWN, LOCKED, BED RAIL X 2, ERMD TO SEE PT. PMH- HYPOTHYOID, ANEMIA, KIDNEY FAILURE, SCOLIOSIS, DYSPHAGIA, GLAUCOMA, OSETOPOROSIS, MODERATE HEARING LOSS, PNEUMONIA, CONTRACTURE OF R FINGER, COLCUTENOUS FISTULA, PANCREATIC MASS, PERIPHERAL VASCULAR INSUFFICIENCY
[2019-04-23] MEDS ORDERED: ONDANSETRON 4 MG/2 ML VIAL IVP ONE (08:40)
--- NOTE | 2019-04-23 09:00 | NUR ---
LAB AT BEDSIDE
[2019-04-23] MEDS: NACL 0.9% 1,000 ML IV SCH ×2 (09:07→09:11)
[2019-04-23 09:17] LABS: BASOPHILS % (AUTO) 0.3 % (0.0-2.0); EOSINOPHILS % (AUTO) 0.5 % (0.0-4.0); HEMATOCRIT 40.6 % (36-52); HEMOGLOBIN 13.6 g/dL (12.0-18.0); LYMPHOCYTES # (AUTO) 0.8 K/uL (2.0-11.5); LYMPHOCYTES % (AUTO) 15.1 % (20.5-51.1); MEAN CORPUSCULAR HEMOGLOBIN 33 pg (27-31); MEAN CORPUSCULAR HGB CONC 34 g/dL (33-37); MEAN CORPUSCULAR VOLUME 97.1 fL (80-94); MONOCYTES # (AUTO) 0.7 K/uL (0.8-1.0); MONOCYTES % (AUTO) 13.4 % (1.7-9.3); NEUTROPHILS # (AUTO) 3.8 K/uL (1.8-7.7); NEUTROPHILS % (AUTO) 70.7 % (42.2-75.2); PLATELET COUNT (AUTO) 144 K/uL (140-450); RED BLOOD CELL COUNT(AUTO) 4.18 MIL/uL (4.20-6.10); RED CELL DISTRIBUTION WIDTH 12.8 % (11.6-13.7); WHITE BLOOD COUNT (AUTO) 5.4 K/uL (4.8-10.8)
[2019-04-23] MEDS ORDERED: DIVA250E1 PO (09:17)
[2019-04-23] MEDS ORDERED: ASCO500T45 GT (09:18)
[2019-04-23] MEDS ORDERED: METO-485 GT (09:28)
--- NOTE | 2019-04-23 09:30 | NUR ---
# 14 FR Urinary catheter inserted utilizing sterile technique. Immediate return of ORANGE urine noted. Urine sample collected and sent to lab. Pt tolerated procedure WELL.
[2019-04-23 09:39] LABS: APPEARANCE,URINE CLEAR (CLEAR); BILIRUBIN,URINE NEGATIVE (NEGATIVE); BLOOD, URINE NEGATIVE (NEGATIVE); COLOR,URINE YELLOW (YELLOW); LEUKOCYTE ESTERASE ,URINE NEGATIVE (NEGATIVE); NITRITE, URINE NEGATIVE (NEGATIVE); UGLUCOSE NEGATIVE (NEGATIVE)
[2019-04-23 09:41] LABS: PROTHROMBIN TIME 9.7 secs (10.8-13.4)
[2019-04-23 09:54] LABS: ALBUMIN 3.5 g/dL (3.4-5.0); AMYLASE 29 U/L (25-115); ASPARTATE AMINOTRANSFERASE 22 U/L (15-37); CARBON DIOXIDE 31.2 mmol/L (21-32); CHLORIDE 97 mmol/L (98-107); GLUCOSE 82 mg/dL (74-106); LIPASE 138 U/L (73-393); POTASSIUM 4.2 mmol/L (3.5-5.1); SODIUM SERUM 134 mmol/L (136-145); TOTAL BILIRUBIN 0.4 mg/dL (0.0-1.0); UREA NITROGEN, BLOOD 23 mg/dL (7-18)
--- NOTE | 2019-04-23 09:54 | NUR ---
XRAY AT BEDSIDE
[2019-04-23 10:00] LABS: RBC,URINE 0-5 /HPF (0-5); WBC,URINE 0-5 /HPF (0-5)
[2019-04-23] MEDS ORDERED: MORPHINE SULFATE 2 MG/ML SYR IVP PRN (10:45)
[2019-04-23] MEDS ORDERED: NACL 0.9% 1,000 ML IV SCH (10:45)
[2019-04-23] MEDS ORDERED: ONDANSETRON 4 MG/2 ML VIAL IM/IVP PRN (10:45)
[2019-04-23] MEDS ORDERED: LORazepam 2 MG/ML VIAL IM/IVP PRN ×2 (10:45→15:45)
--- NOTE | 2019-04-23 11:05 | NUR ---
VSS AT THIS TIME. CAREGIVER BEDSIDE. PT ACTING APPROPRIATELY.
--- NOTE | 2019-04-23 11:25 | NUR ---
CAREGIVER PROVIDED WITH COPY OF LAB RESULTS AND GIVEN ADMITTING DIAGNOSIS. CAREGIVER RETURNING TO FACILITY AT THIS TIME.
--- NOTE | 2019-04-23 11:30 | NUR ---
PATIENT ARRIVED FROM ER VIA GURNEY, PATIENT IS NON-VERBAL, HAS MENTAL DISABILITY AND UNABLE TO GIVE HEALTH HISTORY. 1L BOLUS NS INFUSING TO RIGHT HAND 24 G IV, SITE PATENT, DRESSING CLEAN AND INTACT. SKIN INTACT, SPO2 97% ON RA. ORIENTED PATIENT TO ROOM AND UNIT. SAFETY PRECAUTIONS IN PLACE, CALL LIGHT IN REACH. WILL CONTINUE TO MONITOR.
--- NOTE | 2019-04-23 11:30 | NUR ---
PT ADMITTED WITH 100 ML OF NS STILL RUNNING WIDE OPEN.
--- NOTE | 2019-04-23 11:30 | NUR ---
Patient will be admitted to care of [facility]. Admited to TELE. Will go to room 106B. Belongings list completed. Report to PRICE CRUMP.
[2019-04-23 11:36] LABS: MAGNESIUM 2.4 mg/dL (1.8-2.4); PHOSPHORUS 2.4 mg/dL (2.5-4.9); THYROID STIMULATING HORMONE 1.5 uIU/mL (0.34-3.74)
[2019-04-23] MEDS ORDERED: SODIUM PHOSPHATE 118 ML ENEM RC SCH (13:30)
[2019-04-23] MEDS ORDERED: METOCLOPRAMIDE 10 MG/10 ML SYRP UDC GT PRN (13:30)
[2019-04-23] MEDS ORDERED: BISACODYL 10 MG SUPP RC PRN (13:30)
--- NOTE | 2019-04-23 13:30 | NUR ---
PATIENT AWAKE AND IN BED, NO SIGNS OF DISTRESS ON RA. REPOSITIONED PATIENT, PATIENT ABLE TO HELP SOME, BUT DOES NOT ALWAYS FOLLOW DIRECTIONS. SAFETY PRECAUTIONS IN PLACE.
[2019-04-23] MEDS ORDERED: SODIUM PHOSPHATE 118 ML ENEM RC PRN (13:49)
--- NOTE | 2019-04-23 15:15 | NUR ---
PATIENT RESTING, NO SIGNS OF DISTRESS ON RA. SAFETY PRECAUTIONS IN PLACE. PATIENT UNABLE TO MAKE NEEDS KNOWN WILL ROUND FREQUENTLY.
[2019-04-23] MEDS ORDERED: BISACODYL 10 MG SUPP RC SCH (15:48)
[2019-04-23] MEDS ORDERED: MAGNESIUM HYDROXIDE 2400 MG/30 ML UDC GT SCH (15:49)
[2019-04-23] MEDS ORDERED: POLYETHYLENE GLYCOL 17 GM/PKT GT SCH (15:50)
[2019-04-23 16:00] VITALS: BP 116/61
--- NOTE | 2019-04-23 17:00 | NUR ---
PATIENT RESTING IN BED, NO SIGNS OF DISTRESS. VITALS STABLE. WILL CONTINUE TO MONITOR. SAFETY PRECAUTIONS IN PLACE.
[2019-04-23] MEDS: CARBIDOPA/LEVODOPA 25/100 MG 1 TAB GT SCH (18:10)
--- NOTE | 2019-04-23 18:15 | NUR ---
ADMINISTERED LAXATIVE MEDICATIONS. PATIENT HAS HAD 2 LOOSE BOWEL MOVEMENTS SINCE ARRIVAL TO UNIT. DR. VARELA AWARE AND SHE WANTS TO CONTINUE WITH LAXATIVE MEDICATIONS.
--- NOTE | 2019-04-23 19:09 | NUR ---
GAVE BEDSIDE REPORT TO MAGALY HARDEN RN, ANNEMARIE. PATIENT IN STABLE CONDITION BUT HAS PULLED OUT IV. ENDORSE TO CRYPTOLOGIC SUPPORT SPECIALIST.
--- NOTE | 2019-04-23 19:10 | NUR ---
Received endorsement from AM shift RN; patient A/Ox1, mentally disabled, unable to make needs known, bedbound. Introduced self, updated board. No SOB or distress noted, on room air. IV site removed by patient, will insert another. Skin intact. Bed in the lowest position, call light within reach. Initial assessment done. Will continue to monitor. Addendum: 04/23/19 at 1932 by Carlos Alberto Riggs RN Patient also on seizure precautions.
[2019-04-23 20:00] VITALS: BP 98/68
--- NOTE | 2019-04-23 20:10 | NUR ---
Vitals taken, no distress noted.
[2019-04-23] MEDS: DEXT 5% /NACL 0.9% 1,000 ML IV SCH (20:53)
[2019-04-23] MEDS: LATANOPROST 0.005% OP 2.5 ML BTL OP SCH (20:57)
[2019-04-23] MEDS: LACTULOSE 20 GM/30 ML UDC GT SCH (20:57)
--- NOTE | 2019-04-23 21:10 | NUR ---
Due meds given, tolerated well. G-tube residual - none.
--- NOTE | 2019-04-23 23:10 | NUR ---
Vitals taken, no distress noted.
[2019-04-24] VITALS: BP 136/62
--- NOTE | 2019-04-24 01:10 | NUR ---
Checks made; patient asleep, visible chest rise and fall noted.
--- NOTE | 2019-04-24 03:40 | NUR ---
Rounds done; no SOB or distress noted.
[2019-04-24 04:00] VITALS: BP 110/67
[2019-04-24] MEDS: DEXT 5% /NACL 0.9% 1,000 ML IV SCH (04:24)
[2019-04-24] MEDS: LEVOTHYROXINE 0.075 MG TAB GT SCH (06:36)
--- NOTE | 2019-04-24 07:10 | NUR ---
Endorsed patient to AM shift RN for continuity of care; patient in stable condition.
[2019-04-24] MEDS ORDERED: METOCLOPRAMIDE 10 MG/2 ML INJ VIAL IVP PRN (07:15)
--- NOTE | 2019-04-24 07:15 | NUR ---
RECEIVED PT FROM SUPERVISOR GROUNDS NURSE, PT IS AWAKE AND LYING ON THE BED, ON ROOM AIR, WITH IV LINE ON THE RT FA G. 22 WITH D5 NS AT 80ML/HR, INFUSING AT 80ML/HR, FALL PRECAUTION ENFORCED, SIDE RAILS ARE UP AND CALL LIGHT WITHIN REACH, BED ALARM ACTIVATED, PT HAS A G-TUBE IN PLACE, INTACT WITH ABDOMINAL BINDER IN PLACE WELL, PT IS NON-VERBAL AND HAS MENTAL RETARDATION, NO SIGN OF DISTRESS NOTED AND WILL MONITOR PT.
[2019-04-24 07:37] LABS: BASOPHILS % (AUTO) 0.5 % (0.0-2.0); EOSINOPHILS % (AUTO) 0.6 % (0.0-4.0); HEMATOCRIT 38.1 % (36-52); HEMOGLOBIN 12.7 g/dL (12.0-18.0); LYMPHOCYTES # (AUTO) 1.2 K/uL (2.0-11.5); LYMPHOCYTES % (AUTO) 29.2 % (20.5-51.1); MEAN CORPUSCULAR HEMOGLOBIN 32 pg (27-31); MEAN CORPUSCULAR HGB CONC 33 g/dL (33-37); MEAN CORPUSCULAR VOLUME 96.6 fL (80-94); MONOCYTES # (AUTO) 0.6 K/uL (0.8-1.0); MONOCYTES % (AUTO) 14.2 % (1.7-9.3); NEUTROPHILS # (AUTO) 2.2 K/uL (1.8-7.7); NEUTROPHILS % (AUTO) 55.5 % (42.2-75.2); PLATELET COUNT (AUTO) 154 K/uL (140-450); RED BLOOD CELL COUNT(AUTO) 3.94 MIL/uL (4.20-6.10); RED CELL DISTRIBUTION WIDTH 12.7 % (11.6-13.7)
[2019-04-24 07:52] LABS: ANION GAP 12.2 (8-16); CARBON DIOXIDE 26.9 mmol/L (21-32); CHLORIDE 101 mmol/L (98-107); CREATININE 0.9 mg/dL (0.7-1.3); GLUCOSE 76 mg/dL (74-106); POTASSIUM 4.1 mmol/L (3.5-5.1); SODIUM SERUM 136 mmol/L (136-145); UREA NITROGEN, BLOOD 17 mg/dL (7-18)
--- NOTE | 2019-04-24 07:58 | NUR ---
PATIENT HAS BEEN SCREENED AND CATEGORIZED HIGH NUTRITION RISK. PATIENT WILL BE SEEN WITHIN 1-2 DAYS OF ADMISSION. 04/24/[address]
[2019-04-24 08:00] VITALS: BP 150/58
[2019-04-24 08:12] LABS: CHOL/HDL RATIO 2.9 (1-4.5); MAGNESIUM 2.3 mg/dL (1.8-2.4); PHOSPHORUS 2.8 mg/dL (2.5-4.9)
[2019-04-24] MEDS ORDERED: DUTASTERIDE 0.5 MG GT SCH (09:00)
[2019-04-24] MEDS ORDERED: RASAGILINE MESYLATE 1 MG GT SCH (09:00)
[2019-04-24] MEDS ORDERED: CYANOCOBALAMIN 100 MCG TAB GT SCH (09:00)
[2019-04-24] MEDS ORDERED: CYANOCOBALAMIN 1,000 MCG TAB PO SCH (09:43)
[2019-04-24] MEDS: CARBIDOPA/LEVODOPA 25/100 MG 1 TAB GT SCH ×3 (09:57→17:42)
[2019-04-24] MEDS: VALPROIC ACID 250 MG/5 ML UDC PO SCH (09:57)
[2019-04-24] MEDS: FAMOTIDINE 20 MG TAB GT SCH (09:57)
[2019-04-24] MEDS: TAMSULOSIN 0.4 MG CAP GT SCH (09:57)
[2019-04-24] MEDS: ASCORBIC ACID 500 MG/5 ML ORASYR GT SCH (09:58)
[2019-04-24] MEDS: LACTULOSE 20 GM/30 ML UDC GT SCH ×2 (09:58→21:09)
[2019-04-24] MEDS: MULTIVITAMIN/MINERALS 15 ML UDBTL GT SCH (09:58)
--- NOTE | 2019-04-24 09:58 | NUR ---
PT IS AWAKE AND BEING CLEANED AND REPOSITIONED BY BEAUTY PARLOR CLEANER, MEDICATIONS WERE GIVEN VIA G-TUBE, NO RESIDUAL NOTED. NO SIGN OF DISTRESS NOTED AND WILL MONITOR PT.
[2019-04-24] MEDS: SORBITOL 70% 30 ML UDC GT SCH (09:59)
[2019-04-24] MEDS: NACL 0.9% 1,000 ML IV SCH ×2 (10:41→22:45)
--- NOTE | 2019-04-24 10:42 | NUR ---
SPOKE TO GEOVANI EVANS [facility] AT [phone], SHE STATED THAT PATIENT IS NOT CONSERVED. PATIENT HAS A BROTHER STEPHANIE SIMPSON [phone], WHO SIGNS MEDICAL CONSENTS. PATIENT IS UNDER [facility] AND CAME PROJECTION TECHNICIAN IN CHARGE IS KARLO HOWARD [phone].
[2019-04-24] MEDS: POLYETHYLENE GLYCOL 17 GM/PKT GT SCH (10:45)
--- NOTE | 2019-04-24 11:15 | NUR ---
LEFT MESSAGE CM KARLO HOWARD AT [phone] OF [facility], TO INFORM HER OF PATIENT'S ADMISSION. AWAITING FOR CALL BACK.
[2019-04-24 12:00] VITALS: BP 146/71
--- NOTE | 2019-04-24 13:49 | NUR ---
PT IS AWAKE AND BEING CLEANED AND REPOSITIONED BY BREWERY REPRESENTATIVE, MEDICATIONS WERE GIVEN VIA IV PUSH, VIA G-TUBE AND ANAL ROUTE, NO SIGN OF DISTRESS NOTED AND WILL MONITOR PT.
--- NOTE | 2019-04-24 14:33 | NUR ---
04/24/19 RD INITIAL ASSESSMENT COMPLETED PLEASE REFER TO NUTRITION ASSESSMENT UNDER CARE ACTIVITY FOR ESTIMATED NUTRITIONAL NEEDS. 1. RECOMMEND JEVITY 1.2 AT 55 ML/HR -THIS WILL PROVIDE 1320 ML OF VOLUME, 1584 KCAL, 73 GMS OF PROTEIN. IT WILL MEET 100% OF PT�S ENERGY AND PROTEIN NEEDS. 2. RECOMMEND FREE WATER FLUSH 120 ML Q6H 3. WHEN APPROPRIATE ADVANCE DIET TO PUREE DIET 4. RD TO FOLLOW-UP 2-3 DAYS, HIGH RISK FERMIN CUMMINGS RD
[2019-04-24 16:00] VITALS: BP 116/55
--- NOTE | 2019-04-24 16:00 | NUR ---
PT IS AWAKE AND LYING ON THE BED, SOFT WRIST RESTRAINT WAS STARTED TO PT NOW.
--- NOTE | 2019-04-24 19:00 | NUR ---
TUBE FEEDING WAS STARTED TO PT WITH JEVITY 1.2 AT A KERRY OF 10ML.HR WITH WATER FLUSH OF 120ML Q6H.
--- NOTE | 2019-04-24 19:15 | NUR ---
ENDORSED PT TO MATERNITY NURSE NURSE FOR CONTINUITY OF CARE.
--- NOTE | 2019-04-24 19:17 | NUR ---
RECEIVED REPORT FROM AM NURSE. PT AWAKE IN BED, ON RA. NO VISUAL SIGNS OF DISTRESS. PT RT FOREARM 22G INTACT AND INFUSING WELL. PT GTUBE INTACT, COVERED BY ABDOMINAL BINDER. PT HAS MITTENS RESTRAINTS ON. FALL PRECAUTIONS IN PLACE. BED ALARM ON. SIDE RAILS UP X2. CALL LIGHT WITHIN REACH. WILL CONTINUE TO MONITOR.
[2019-04-24 20:05] VITALS: BP 167/71
[2019-04-24] MEDS: LATANOPROST 0.005% OP 2.5 ML BTL OP SCH (21:00)
--- NOTE | 2019-04-24 22:05 | NUR ---
ROUNDED ON PT. PT SLEEPING IN BED. FALL PRECAUTIONS IN PLACE. CHECKED RESIDUALS. 0 RESIDUALS, INCREASED TUBE FEEDING PER ORDERS. NO VISIBLE SIGNS OF DISTRESS. BREATHING EQUAL AND UNLABORED.
--- NOTE | 2019-04-25 | NUR ---
ROUNDED ON PT. PT SLEEPING. PT CLEANED AND REPOSITIONED TO OFFLOAD PRESSURE AREAS. NO VISIBLE SIGNS OF DISTRESS. SAFETY MEASURES IN PLACE. WILL CONTINUE TO MONITOR.
[2019-04-25 00:06] VITALS: BP 145/55
[2019-04-25] MEDS: NACL 0.9% 1,000 ML IV SCH (01:32)
--- NOTE | 2019-04-25 02:20 | NUR ---
ROUNDED ON PT. PT SLEEPING. FEEDINGS TOLERATED WELL. NO VISIBLE SIGNS OF DISTRESS. SAFETY MEASURES IN PLACE. MITTENS IN PLACE. WILL CONTINUE TO MONITOR.
[2019-04-25 04:05] VITALS: BP 114/69
--- NOTE | 2019-04-25 04:05 | NUR ---
VITALS TAKEN. PT SLEEPING BUT EASILY AROUSABLE. NO VISIBLE SIGNS OF DISTRESS. FALL PRECATUIONS IN PLACE. TUBE FEED RUNNING. WILL CONTINUE TO MONITOR.
--- NOTE | 2019-04-25 05:07 | NUR ---
ANTIBIOTICS HUNG. PT BECOMING INCREASINGLY AGITATED. PT ASKING WHY HE HASN'T BEEN TAKEN TO SURGERY YET. IT WAS EXPLAINED TO THE PT THAT HIS SURGERY IS SCHEDULED FOR LATER TODAY. PT ASKED WHY HE IS NPO. IT WAS EXPLAINED TO THE PT THE RATIONAL NPO FOR SURGERY. PT ALSO CLAIMS THAT HE HAS NOT BEEN GIVEN ANY PAIN MEDICATION. PT WAS REMINDED THAT HE RECEIVED PAIN MEDICATION AT 2326. 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 I NEED TO SPEAK WITH A DOCTOR." INFORMED MD RESIDENTS OF PT'S REQUEST TO SPEAK WITH A DOCTOR. Addendum: 04/25/19 at 0640 by Irais Stafford RN WRONG PT
[2019-04-25] MEDS: LEVOTHYROXINE 0.075 MG TAB GT SCH (05:33)
--- NOTE | 2019-04-25 06:00 | NUR ---
ROUNDED ON PT. PT AWAKE IN BED. NO VISIBLE SIGNS OF DISTRESS. SAFETY MEASURES IN PLACE. WILL CONTINUE TO MONITOR.
--- NOTE | 2019-04-25 07:10 | NUR ---
ENDORSED PT TO AM NURSE. PT STABLE AT THIS TIME.
--- NOTE | 2019-04-25 07:15 | NUR ---
RECEIVED PT FROM JEWEL SORTER NURSE, PT IS AWAKE AND LYING ON THE BED WITH SIDE RAILS UP AND CALL LIGHT WITHIN REACH, FALL PRECAUTION INITIATED, BED ALARM ACTIVATED, PT IS ON SOFT WRIST RESTRAINT, HAS AN IV LINE ON THE RT FA G. 22 WITH NS AT 80ML/HR INFUSING, INTACT, G-TUBE IN PLACE WITH CONTINUOUS FEEDING OF JEVITY 1.2 AT A RATE OF 55ML/HR, WITH WATER FLUSHING OF 120ML Q6H, INFUSING, PT HAS MENTAL RETARDATION AND APHASIC, NO SIGN OF DISTRESS NOTED AND WILL CONTINUE TO MONITOR PT.
--- NOTE | 2019-04-25 07:30 | NUR ---
PT IS AWAKE AND SEATED ON THE BED, VITAL SIGNS CHECKED AND BP IS 1541/43, PULSE IS 59, TEMP. IS 97.2, O2 SATURATION IS 100% ON ROOM AIR, RESPIRATION IS 16/MIN, PT'S RESTRAINT AND CIRCULATION WERE CHECKED, NO SIGN OF INJURY NOTED. WILL MONITOR PT.
[2019-04-25 07:44] LABS: BASOPHILS % (AUTO) 0.5 % (0.0-2.0); EOSINOPHILS % (AUTO) 1.3 % (0.0-4.0); HEMATOCRIT 33.9 % (36-52); HEMOGLOBIN 11.6 g/dL (12.0-18.0); LYMPHOCYTES # (AUTO) 1.2 K/uL (2.0-11.5); LYMPHOCYTES % (AUTO) 31.9 % (20.5-51.1); MEAN CORPUSCULAR HEMOGLOBIN 33 pg (27-31); MEAN CORPUSCULAR HGB CONC 34 g/dL (33-37); MEAN CORPUSCULAR VOLUME 96.8 fL (80-94); MONOCYTES # (AUTO) 0.6 K/uL (0.8-1.0); MONOCYTES % (AUTO) 15.7 % (1.7-9.3); NEUTROPHILS # (AUTO) 1.9 K/uL (1.8-7.7); NEUTROPHILS % (AUTO) 50.6 % (42.2-75.2); PLATELET COUNT (AUTO) 140 K/uL (140-450); RED BLOOD CELL COUNT(AUTO) 3.51 MIL/uL (4.20-6.10); RED CELL DISTRIBUTION WIDTH 12.5 % (11.6-13.7); WHITE BLOOD COUNT (AUTO) 3.8 K/uL (4.8-10.8)
[2019-04-25 08:00] VITALS: BP 151/43
[2019-04-25 08:18] LABS: ANION GAP 12.6 (8-16); CARBON DIOXIDE 25.3 mmol/L (21-32); CHLORIDE 102 mmol/L (98-107); CREATININE 0.8 mg/dL (0.7-1.3); GLUCOSE 123 mg/dL (74-106); POTASSIUM 3.9 mmol/L (3.5-5.1); SODIUM SERUM 136 mmol/L (136-145); UREA NITROGEN, BLOOD 17 mg/dL (7-18)
[2019-04-25 08:20] LABS: MAGNESIUM 2.2 mg/dL (1.8-2.4); PHOSPHORUS 3.3 mg/dL (2.5-4.9)
[2019-04-25] MEDS ORDERED: MAGNESIUM HYDROXIDE 2400 MG/30 ML UDC GT SCH ×2 (09:00)
[2019-04-25] MEDS: POLYETHYLENE GLYCOL 17 GM/PKT GT SCH (09:58)
[2019-04-25] MEDS: VALPROIC ACID 250 MG/5 ML UDC PO SCH (09:59)
[2019-04-25] MEDS: MULTIVITAMIN/MINERALS 15 ML UDBTL GT SCH (10:00)
[2019-04-25] MEDS: LACTULOSE 20 GM/30 ML UDC GT SCH ×2 (10:01→20:22)
[2019-04-25] MEDS: CARBIDOPA/LEVODOPA 25/100 MG 1 TAB GT SCH ×3 (10:04→16:18)
[2019-04-25] MEDS: FAMOTIDINE 20 MG TAB GT SCH (10:04)
[2019-04-25] MEDS: TAMSULOSIN 0.4 MG CAP GT SCH (10:04)
[2019-04-25] MEDS: CYANOCOBALAMIN 1,000 MCG TAB PO SCH (10:05)
[2019-04-25] MEDS: SORBITOL 70% 30 ML UDC GT SCH (10:06)
[2019-04-25] MEDS: ASCORBIC ACID 500 MG/5 ML ORASYR GT SCH (10:28)
--- NOTE | 2019-04-25 10:34 | NUR ---
PT IS AWAKE AND WAS BEING CLEANED AND REPOSITIONED, MEDIATIONS WERE GIVEN VIA G-TUBE AND NO RESIDUAL NOTED, NO SIGN OF DISTRESS NOTED, STILL NEEDING RESTRAINT BECAUSE PT IS ATTEMPTING TO PULL IV AND FEEDING TUBES. WILL MONITOR PT.
[2019-04-25 12:00] VITALS: BP 140/100
--- NOTE | 2019-04-25 12:50 | NUR ---
PT IS AWAKE AND VITAL SIGNS CHECKED AND IS WITHIN NORMAL LIMIT, MEDICATION WAS GIVEN VIA G-TUBE, NO RESIDUAL NOTED. WILL MONITOR PT.
[2019-04-25 16:00] VITALS: BP 142/60
--- NOTE | 2019-04-25 17:00 | NUR ---
PT WAS TRANSFERRED TO MED-SURG NOW, CAREER AND TRANSITION TEACHER REMOVED AND GIVEN TO CONTINUING EDUCATION SPECIALIST, ROSE.
--- NOTE | 2019-04-25 18:15 | NUR ---
PT WAS BACK TO HIS ROOM FROM RT HERNIA REPAIR WITH MESH, VITAL SIGNS TAKEN AND BP IS 110/65, PULSE IS76, O2 SATURATION IS 94%, TEMPERATURE IS 98.4, RESPIRATION IS 16/MIN, NO SIGN OF DISTRESS NOTED AND WILL MONITOR PT.
--- NOTE | 2019-04-25 19:20 | NUR ---
ENDORSED PT TO SMOG TECHNICIAN NURSE FOR CONTINUITY OF CARE.
--- NOTE | 2019-04-25 19:21 | NUR ---
RECEIVED REPORT FROM DAY SHIFT NURSE LEONIDAS-ALISIA AT BEDSIDE. PT RESTING IN BED, APHASIC, ON ROOM AIR WITH RIGHT FA #22G RUNNING NS @80ML/HR. PT HAS G-TUBE FEEDINGS WITH JEVITY 1.2 RUNNING AT 55ML/HR, WATER FLUSHES 120ML Q6H- ZERO RESIDUAL. PT CURRENTLY ON NON-BEHAVIORAL RESTRAINTS- SOFT WRIST AND TOLERATING WELL. DISCUSSED PLAN OF CARE HOWEVER PT IS UNABLE TO VERBALIZE UNDERSTANDING. BED IN LOWEST POSITION, BED BREAKS ON, BOTH SIDE RAILS UP, BED ALARM ON AND FALL PRECAUTIONS IN PLACE. BEDSIDE TABLE AND CALL LIGHT ARE WITHIN REACH. WILL CONTINUE TO MONITOR.
[2019-04-25 20:00] VITALS: BP 150/61
--- NOTE | 2019-04-25 20:00 | NUR ---
VITAL SIGNS TAKEN AND TOLERATED WELL. NO S/S OF RESPIRATORY DISTRESS OR DISCOMFORT NOTED AT THIS TIME. WILL CONTINUE TO MONITOR.
[2019-04-25] MEDS: LATANOPROST 0.005% OP 2.5 ML BTL OP SCH (20:22)
--- NOTE | 2019-04-25 20:28 | NUR ---
SCHEDULED MEDICATIONS GIVEN AND TOLERATED WELL. NO S/S OF RESPIRATORY DISTRESS OR DISCOMFORT NOTED AT THIS TIME. WILL CONTINUE TO MONITOR.
--- NOTE | 2019-04-25 22:00 | NUR ---
PT SLEEPING IN BED. NO S/S OF RESPIRATORY DISTRESS OR DISCOMFORT NOTED AT THIS TIME. WILL CONTINUE TO MONITOR.
[2019-04-26] VITALS: BP 150/60
--- NOTE | 2019-04-26 | NUR ---
VITAL SIGNS TAKEN AND TOLERATED WELL. NO S/S OF RESPIRATORY DISTRESS OR DISCOMFORT NOTED AT THIS TIME. WILL CONTINUE TO MONITOR.
[2019-04-26] MEDS: NACL 0.9% 1,000 ML IV SCH (01:55)
--- NOTE | 2019-04-26 01:55 | NUR ---
NEW BAG OF IVF HUNG AND TOLERATED WELL. NO S/S OF RESPIRATORY DISTRESS OR DISCOMFORT NOTED AT THIS TIME. WILL CONTINUE TO MONITOR.
--- NOTE | 2019-04-26 02:00 | NUR ---
PT CONTINUES TO SLEEP IN BED. NO S/S OF RESPIRATORY DISTRESS OR DISCOMFORT NOTED AT THIS TIME. WILL CONTINUE TO MONITOR.
--- NOTE | 2019-04-26 04:00 | NUR ---
PT CONTINUES TO SLEEP IN BED. NO S/S OF RESPIRATORY DISTRESS OR DISCOMFORT NOTED AT THIS TIME. WILL CONTINUE TO MONITOR.
[2019-04-26] MEDS: LEVOTHYROXINE 0.075 MG TAB GT SCH (06:02)
--- NOTE | 2019-04-26 06:02 | NUR ---
SCHEDULED MEDICATION SYNTHROID GIVEN AND TOLERATED WELL. NO S/S OF RESPIRATORY DISTRESS OR DISCOMFORT NOTED AT THIS TIME. WILL CONTINUE TO MONITOR.
--- NOTE | 2019-04-26 07:25 | NUR ---
RECEIVED ENDORSEMENT FROM SERVICE STATION HELPER NURSE. PATIENT IS AAOX1, APHASIC. RESPIRATIONS ARE EVEN AND UNLABORED ON ROOM AIR. G-TUBE INTACT, PATENT, AND INFUSING CONTINUOS FEED. RIGHT FA 22 G INTACT, PATENT, AND INFUSING IVF. MITTEN RESTRAINTS NOTED. CMS INTACT. FLACC 0. PLAN OF CARE WAS REVIEWED WITH PATIENT, PATIENT VERBALIZED UNDERSTANDING. SAFETY MEASURES IN PLACE, CALL LIGHT WITHIN REACH. Addendum: 04/26/19 at 0821 by Nicole Neff RN *PATIENT UNABLE TO VERBALIZE UNDERSTANDING
[2019-04-26 07:33] LABS: ANION GAP 10.6 (8-16); CARBON DIOXIDE 27.4 mmol/L (21-32); CHLORIDE 105 mmol/L (98-107); CREATININE 0.8 mg/dL (0.7-1.3); GLUCOSE 114 mg/dL (74-106); SODIUM SERUM 139 mmol/L (136-145); UREA NITROGEN, BLOOD 12 mg/dL (7-18)
[2019-04-26 07:36] LABS: MAGNESIUM 2.2 mg/dL (1.8-2.4); PHOSPHORUS 3.6 mg/dL (2.5-4.9)
[2019-04-26 08:00] VITALS: BP 157/52
[2019-04-26 08:06] LABS: BASOPHILS # (AUTO) 0.1 K/uL (0.00-0.22); EOSINOPHILS # (AUTO) 0.1 K/uL (0-0.4); HEMOGLOBIN 11.5 g/dL (12.0-18.0)
[2019-04-26 08:11] LABS: HEMATOCRIT 34.2 % (36-52); LYMPHOCYTES # (AUTO) 2.1 K/uL (2.0-11.5); LYMPHOCYTES % (AUTO) 33.1 % (20.5-51.1); MEAN CORPUSCULAR HEMOGLOBIN 33 pg (27-31); MEAN CORPUSCULAR HGB CONC 34 g/dL (33-37); MEAN CORPUSCULAR VOLUME 96.8 fL (80-94); MONOCYTES % (AUTO) 16.2 % (1.7-9.3); NEUTROPHILS % (AUTO) 47.7 % (42.2-75.2); PLATELET COUNT (AUTO) 144 K/uL (140-450); RED BLOOD CELL COUNT(AUTO) 3.53 MIL/uL (4.20-6.10); RED CELL DISTRIBUTION WIDTH 12.3 % (11.6-13.7); WHITE BLOOD COUNT (AUTO) 6.2 K/uL (4.8-10.8)
[2019-04-26] MEDS: LACTULOSE 20 GM/30 ML UDC GT SCH (09:09)
[2019-04-26] MEDS: ASCORBIC ACID 500 MG/5 ML ORASYR GT SCH (09:09)
[2019-04-26] MEDS: VALPROIC ACID 250 MG/5 ML UDC PO SCH (09:09)
[2019-04-26] MEDS: CYANOCOBALAMIN 1,000 MCG TAB PO SCH (09:10)
[2019-04-26] MEDS: TAMSULOSIN 0.4 MG CAP GT SCH (09:10)
[2019-04-26] MEDS: POLYETHYLENE GLYCOL 17 GM/PKT GT SCH (09:10)
[2019-04-26] MEDS: FAMOTIDINE 20 MG TAB GT SCH (09:10)
[2019-04-26] MEDS: CARBIDOPA/LEVODOPA 25/100 MG 1 TAB GT SCH (09:10)
[2019-04-26] MEDS: SORBITOL 70% 30 ML UDC GT SCH (09:11)
[2019-04-26] MEDS: MULTIVITAMIN/MINERALS 15 ML UDBTL GT SCH (09:14)
--- NOTE | 2019-04-26 09:30 | NUR ---
ADMINISTERED SCHEDULED MEDICATIONS VIA GTUBE. NO RESIDUAL. PATIENT TOLERATING FEEDING WELL. FLACC O. NO OTHER NEEDS AT THIS TIME.
--- NOTE | 2019-04-26 10:40 | NUR ---
RECEIVED CALL FROM [facility]. PATIENT TO BE TRANSFERRED AROUND 1300.
--- NOTE | 2019-04-26 11:20 | NUR ---
PATIENT RESTING IN BED. NO DISTRESS NOTED. FLACC 0. NO OTHER NEEDS AT THIS TIME.
--- NOTE | 2019-04-26 13:20 | NUR ---
DISCHARGE PAPER SIGNED BY TRANSPORTER. ALL LINES WERE DISCONNECTED. ID BAND WAS REMOVED. PATIENT WAS TAKEN OFF UNIT VIA WHEELCHAIR. PATIENT IS STABLE AT THIS TIME. Addendum: 04/26/19 at 1332 by Nicole Neff RN ALL BELONGINGS LEFT WITH PATIENT. Addendum: 04/26/19 at 1334 by Nicole Neff RN PATIENT IS STABLE AT THIS TIME.
== END 2019-04-26 13:20 | disposition home or self-care (01) | DRG 640 ==
LOC: MED 08:20 → MTU 10:50
PROVIDERS: ADMIT General Practice; ATTEND General Practice
DX: E86.0 Dehydration (principal); N17.0 Acute kidney failure with tubular necrosis; E87.1 Hypo-osmolality and hyponatremia; E83.39 Other disorders of phosphorus metabolism; G40.909 Epilepsy, unspecified, not intractable, without status epilepticus; K21.9 Gastro-esophageal reflux disease without esophagitis; R13.10 Dysphagia, unspecified; G20 Parkinson's disease; E03.9 Hypothyroidism, unspecified; K59.09 Other constipation; I10 Essential (primary) hypertension; N40.0 Benign prostatic hyperplasia without lower urinary tract symptoms; Z93.1 Gastrostomy status; Z88.1 Allergy status to other antibiotic agents; Z88.0 Allergy status to penicillin; Z88.8 Allergy status to other drugs, medicaments and biological substances; Z79.899 Other long term (current) drug therapy; Z90.5 Acquired absence of kidney
CPT/HCPCS: 36415; 51702; 71045; 74018; 80048; 80053; 81001; 82150; 83036; 83605; 83690; 83735; 83880; 84100; 84443; 84484; 85025; 85610; 85730; 87040; 87081; 93005; 96374; 99285; J1644; J2405; J2765; J3420; J7030; J7042; Q0092

== ENCOUNTER 2019-08-13 16:41 | Inpatient (IN) | payer OTHER, MEDICAID ==
[~2019-08-13] VITALS: Ht 162.6 cm; Wt 63.0 kg
[~2019-08-13 16:41] MED LIST changes: -AZIT250T3 PO; +DIVA250E1 PO; -LACT10CA GT; -VALP-22 GT
[2019-08-13 16:49] VITALS: BP 95/48
[2019-08-13] MEDS ORDERED: NACL 0.9% 1,000 ML IV ONE (17:30)
[2019-08-13 18:36] LABS: BASOPHILS % (AUTO) 0.3 % (0.0-2.0); EOSINOPHILS % (AUTO) 0.9 % (0.0-4.0); HEMOGLOBIN 8.8 g/dL (12.0-18.0); LYMPHOCYTES # (AUTO) 0.6 K/uL (2.0-11.5); LYMPHOCYTES % (AUTO) 16.6 % (20.5-51.1); MEAN CORPUSCULAR HEMOGLOBIN 31 pg (27-31); MEAN CORPUSCULAR HGB CONC 33 g/dL (33-37); MEAN CORPUSCULAR VOLUME 96.3 fL (80-94); MONOCYTES # (AUTO) 0.6 K/uL (0.8-1.0); MONOCYTES % (AUTO) 15.4 % (1.7-9.3); NEUTROPHILS # (AUTO) 2.6 K/uL (1.8-7.7); NEUTROPHILS % (AUTO) 66.8 % (42.2-75.2); PLATELET COUNT (AUTO) 70 K/uL (140-450); RED CELL DISTRIBUTION WIDTH 13.9 % (11.6-13.7); WHITE BLOOD COUNT (AUTO) 3.9 K/uL (4.8-10.8)
[2019-08-13 18:47] LABS: BILIRUBIN,URINE NEGATIVE (NEGATIVE); BLOOD, URINE NEGATIVE (NEGATIVE); COLOR,URINE YELLOW (YELLOW); LEUKOCYTE ESTERASE ,URINE 3+ (NEGATIVE); NITRITE, URINE POSITIVE (NEGATIVE); PH,URINE 6.5 (5.0-9.0); UGLUCOSE NEGATIVE (NEGATIVE)
[2019-08-13 18:49] LABS: APPEARANCE,URINE CLOUDY (CLEAR)
[2019-08-13 19:19] LABS: RBC,URINE NONE SEEN /HPF (0-5); WBC,URINE 80-100 /HPF (0-5)
[2019-08-13 19:25] LABS: ALBUMIN 2.8 g/dL (3.4-5.0); ANION GAP 14.1 (8-16); ASPARTATE AMINOTRANSFERASE 42 U/L (15-37); CHLORIDE 99 mmol/L (98-107); GLUCOSE 107 mg/dL (74-106); LIPASE 329 U/L (73-393); POTASSIUM 4.1 mmol/L (3.5-5.1); SODIUM SERUM 135 mmol/L (136-145); TOTAL BILIRUBIN 0.4 mg/dL (0.0-1.0); UREA NITROGEN, BLOOD 29 mg/dL (7-18)
[2019-08-13 21:21] LABS: PROTHROMBIN TIME 10.7 secs (10.8-13.4)
[2019-08-13] MEDS ORDERED: LEVOFLOXACIN 500 MG/D5W PREMIX 100 ML IV ONE (21:25)
[2019-08-13] MEDS ORDERED: ACETAMINOPHEN 325 MG TAB PO PRN (21:40)
[2019-08-13] MEDS ORDERED: HYDROcodone/APAP 7.5/325 MG 1 TAB PO PRN (21:40)
[2019-08-13] MEDS ORDERED: ONDANSETRON 4 MG/2 ML VIAL IVP PRN (21:40)
[2019-08-13 22:29] LABS: BARBITURATE, URINE NEG. ng/ml (NEG <=200); BENZODIAZEPINE, URINE NEG. ng/mL (NEG <=200); COCAINE, URINE NEG. ng/mL (NEG <=300); OPIATE, URINE NEG. ng/mL (NEG <=2000); PHENCYCLIDINE SCREEN,URINE NEG. ng/mL (NEG <=25)
[2019-08-13 22:44] LABS: CANNABINOID, URINE NEG. ng/mL (NEG <=50)
[2019-08-13 22:45] VITALS: BP 160/73
[2019-08-13] MEDS ORDERED: SODIUM PHOSPHATE 118 ML ENEM RC PRN (23:40)
[2019-08-13] MEDS ORDERED: ACETAMINOPHEN 325 MG TAB GT PRN (23:40)
[2019-08-13] MEDS ORDERED: BISACODYL 10 MG SUPP RC PRN (23:40)
[2019-08-14] MEDS: DEXT 5% /NACL 0.9% 1,000 ML IV SCH
[2019-08-14 00:05] LABS: FREE T4 (FREE THYROXINE) 1.12 ng/dL (0.76-1.46); MAGNESIUM 2.2 mg/dL (1.8-2.4); PHOSPHORUS 3.7 mg/dL (2.5-4.9); THYROID STIMULATING HORMONE 2.59 uIU/mL (0.34-3.74)
[2019-08-14 04:00] VITALS: BP 147/67
[2019-08-14 07:12] LABS: CHOL/HDL RATIO 2.3 (1-4.5)
[2019-08-14 08:00] VITALS: BP 150/57
[2019-08-14] MEDS ORDERED: RASAGILINE 1MG TABLET GT SCH (10:27)
[2019-08-14] MEDS: FINASTERIDE 5 MG TAB GT SCH (10:27)
[2019-08-14] MEDS: POLYETHYLENE GLYCOL 17 GM/PKT GT SCH (10:27)
[2019-08-14] MEDS: LEVOTHYROXINE 0.075 MG TAB GT SCH (10:28)
[2019-08-14] MEDS: CALCIUM CARB/VIT-D 500 MG/200 IU 1 TAB GT SCH (10:28)
[2019-08-14] MEDS: ASCORBIC ACID 500 MG TAB GT SCH (10:28)
[2019-08-14] MEDS: CARBIDOPA/LEVODOPA 25/100 MG 1 TAB GT SCH ×3 (10:28→19:53)
[2019-08-14] MEDS: LACTOBACILLUS RHAMNOSUS GG 1 EACH CAP GT SCH (10:28)
[2019-08-14] MEDS: DOCUSATE SODIUM 100 MG GELCAP PO SCH ×2 (10:29→20:57)
[2019-08-14] MEDS: DIVALPROEX 250 MG TABEC PO SCH (10:29)
[2019-08-14] MEDS: FAMOTIDINE 20 MG TAB GT SCH (10:29)
[2019-08-14] MEDS: LACTULOSE 20 GM/30 ML UDC GT SCH ×2 (10:29→20:57)
[2019-08-14] MEDS: CYANOCOBALAMIN 1,000 MCG TAB PO SCH (10:29)
[2019-08-14 12:00] VITALS: BP 143/67
[2019-08-14 16:00] VITALS: BP 131/58
[2019-08-14 20:00] VITALS: BP 151/70
[2019-08-14] MEDS: SENNA 8.6 MG TAB PO SCH (20:57)
[2019-08-14] MEDS: LATANOPROST 0.005% OP 2.5 ML BTL OP SCH (21:00)
[2019-08-14] MEDS ORDERED: NON-FORMULARY ITEM (Travoprost (Travatan Z 5 Ml) 1 DROP) OP SCH (21:00)
[2019-08-14] MEDS: LEVOFLOXACIN 500 MG/D5W PREMIX 100 ML IV SCH (21:05)
[2019-08-15] VITALS: BP 115/52
[2019-08-15 04:00] VITALS: BP 165/77
[2019-08-15 08:00] VITALS: BP 157/67
[2019-08-15] MEDS: CYANOCOBALAMIN 1,000 MCG TAB PO SCH (09:00)
[2019-08-15] MEDS: RASAGILINE 1MG TABLET GT SCH (09:00)
[2019-08-15] MEDS ORDERED: MAGNESIUM HYDROXIDE 2400 MG/30 ML UDC PO SCH (09:00)
[2019-08-15] MEDS: DEXT 5% /NACL 0.9% 1,000 ML IV SCH (10:00)
[2019-08-15] MEDS: POLYETHYLENE GLYCOL 17 GM/PKT GT SCH (10:46)
[2019-08-15] MEDS: FAMOTIDINE 20 MG TAB GT SCH (10:47)
[2019-08-15] MEDS: SENNA 8.6 MG TAB PO SCH (10:47)
[2019-08-15] MEDS: LACTULOSE 20 GM/30 ML UDC GT SCH ×2 (10:47→16:36)
[2019-08-15] MEDS: CALCIUM CARB/VIT-D 500 MG/200 IU 1 TAB GT SCH (10:48)
[2019-08-15] MEDS: DIVALPROEX 250 MG TABEC PO SCH (10:48)
[2019-08-15] MEDS: ASCORBIC ACID 500 MG TAB GT SCH (10:48)
[2019-08-15] MEDS: FINASTERIDE 5 MG TAB GT SCH (10:48)
[2019-08-15] MEDS: LEVOTHYROXINE 0.075 MG TAB GT SCH (10:48)
[2019-08-15] MEDS: CARBIDOPA/LEVODOPA 25/100 MG 1 TAB GT SCH ×3 (10:48→16:52)
[2019-08-15 12:00] VITALS: BP 163/70
[2019-08-15] MEDS ORDERED: diphenhydrAMINE 50 MG/ML VIAL ONE (14:28)
[2019-08-15] MEDS ORDERED: MIDAZOLAM 2 MG/2 ML VIAL ONE ×2 (14:28)
[2019-08-15] MEDS ORDERED: fentaNYL 0.05 MG/ML VIAL ONE (14:28)
[2019-08-15] MEDS ORDERED: fentaNYL 0.05 MG/ML VIAL IVP ONE (15:30)
[2019-08-15] MEDS ORDERED: MIDAZOLAM 2 MG/2 ML VIAL IVP ONE (15:30)
[2019-08-15 16:00] VITALS: BP 123/59
[2019-08-15] MEDS: LACTOBACILLUS RHAMNOSUS GG 1 EACH CAP GT SCH (16:36)
[2019-08-15] MEDS: PROPRANOLOL 20 MG TAB PO SCH (16:36)
[2019-08-15] MEDS: FERROUS SULFATE 325 MG TABEC PO SCH (16:39)
[2019-08-15 20:00] VITALS: BP 134/53
[2019-08-15] MEDS: LATANOPROST 0.005% OP 2.5 ML BTL OP SCH ×2 (21:00→21:05)
[2019-08-15] MEDS ORDERED: DOCUSATE 100 MG/10 ML UDC GT SCH (21:00)
[2019-08-15] MEDS: LEVOFLOXACIN 500 MG/D5W PREMIX 100 ML IV SCH (21:04)
[2019-08-16 04:00] VITALS: BP 141/69
[2019-08-16 08:07] LABS: BASOPHILS % (AUTO) 0.3 % (0.0-2.0); HEMATOCRIT 29.6 % (36-52); HEMOGLOBIN 9.7 g/dL (12.0-18.0); LYMPHOCYTES # (AUTO) 0.8 K/uL (2.0-11.5); LYMPHOCYTES % (AUTO) 22.9 % (20.5-51.1); MEAN CORPUSCULAR HEMOGLOBIN 32 pg (27-31); MEAN CORPUSCULAR HGB CONC 33 g/dL (33-37); MEAN CORPUSCULAR VOLUME 96.1 fL (80-94); MONOCYTES # (AUTO) 0.6 K/uL (0.8-1.0); MONOCYTES % (AUTO) 17.3 % (1.7-9.3); NEUTROPHILS # (AUTO) 1.9 K/uL (1.8-7.7); NEUTROPHILS % (AUTO) 58.5 % (42.2-75.2); PLATELET COUNT (AUTO) 68 K/uL (140-450); RED BLOOD CELL COUNT(AUTO) 3.08 MIL/uL (4.20-6.10); RED CELL DISTRIBUTION WIDTH 13.9 % (11.6-13.7); WHITE BLOOD COUNT (AUTO) 3.3 K/uL (4.8-10.8)
[2019-08-16] MEDS: ASCORBIC ACID 500 MG TAB GT SCH (08:10)
[2019-08-16] MEDS: LACTOBACILLUS RHAMNOSUS GG 1 EACH CAP GT SCH (08:10)
[2019-08-16] MEDS: FERROUS SULFATE 325 MG TABEC PO SCH (08:10)
[2019-08-16] MEDS: CALCIUM CARB/VIT-D 500 MG/200 IU 1 TAB GT SCH (08:11)
[2019-08-16] MEDS: FINASTERIDE 5 MG TAB GT SCH (08:11)
[2019-08-16] MEDS: FAMOTIDINE 20 MG TAB GT SCH (08:11)
[2019-08-16] MEDS: LEVOTHYROXINE 0.075 MG TAB GT SCH (08:11)
[2019-08-16] MEDS: PROPRANOLOL 20 MG TAB PO SCH ×2 (08:12→13:49)
[2019-08-16] MEDS: RASAGILINE 1MG TABLET GT SCH (08:12)
[2019-08-16] MEDS: CARBIDOPA/LEVODOPA 25/100 MG 1 TAB GT SCH ×2 (08:12→13:49)
[2019-08-16] MEDS: LACTULOSE 20 GM/30 ML UDC GT SCH ×2 (08:31→13:49)
[2019-08-16] MEDS ORDERED: PROP20TA29 PO (08:41)
[2019-08-16] MEDS ORDERED: FER325 PO (08:42)
[2019-08-16] MEDS ORDERED: DIVALPROEX 500 MG TABEC PO SCH (09:00)
[2019-08-16 11:23] LABS: ANION GAP 13.5 (8-16); CARBON DIOXIDE 25.5 mmol/L (21-32); CHLORIDE 103 mmol/L (98-107); CREATININE 0.9 mg/dL (0.7-1.3); GLUCOSE 134 mg/dL (74-106); SODIUM SERUM 138 mmol/L (136-145); UREA NITROGEN, BLOOD 16 mg/dL (7-18)
[2019-08-17 00:10] LABS: FOLIC ACID 17.1 ng/mL (>3.0)
[2019-08-18] MEDS ORDERED: ALENDRONATE SODIUM 70 MG TAB PO SCH (06:00)
== END 2019-08-16 14:55 | disposition hospice, home (50) | DRG 438 ==
LOC: MED 16:41 → MTU 21:38 → MMU 22:37
PROVIDERS: ADMIT General Practice; ATTEND General Practice
PROC: 0DJ08ZZ Inspection of Upper Intestinal Tract, Via Natural or Artificial Opening Endoscopic (ICD-10-PCS; principal; 2019-08-15 14:30)
DX: K86.9 Disease of pancreas, unspecified (principal); R53.2 Functional quadriplegia; E43 Unspecified severe protein-calorie malnutrition; I85.00 Esophageal varices without bleeding; K76.6 Portal hypertension; I85.10 Secondary esophageal varices without bleeding; R11.10 Vomiting, unspecified; D53.9 Nutritional anemia, unspecified; G20 Parkinson's disease; E03.9 Hypothyroidism, unspecified; Z68.23 Body mass index [BMI] 23.0-23.9, adult; D69.6 Thrombocytopenia, unspecified; F02.80 Dementia in other diseases classified elsewhere, unspecified severity, without behavioral disturbance, psychotic disturbance, mood disturbance, and anxiety; Z86.73 Personal history of transient ischemic attack (TIA), and cerebral infarction without residual deficits; Z93.1 Gastrostomy status; K31.89 Other diseases of stomach and duodenum; F79 Unspecified intellectual disabilities; Z88.0 Allergy status to penicillin; Z88.8 Allergy status to other drugs, medicaments and biological substances
CPT/HCPCS: 36415; 71045; 74018; 80048; 80053; 80305; 81001; 82150; 82272; 82607; 82746; 83036; 83690; 83735; 83880; 84100; 84439; 84443; 84484; 85025; 85045; 85610; 85730; 87040; 87081; 87086; 93005; 96360; 99285; J1200; J1956; J2250; J3010; J3420; J7030; J7042; Q0092

== ENCOUNTER 2019-10-02 06:26 | Emergency (ER) | payer OTHER, MEDICAID ==
[~2019-10-02] VITALS: Ht 165.1 cm; Wt 77.1 kg
[2019-10-02 06:26] VITALS: BP 170/82
[~2019-10-02 06:26] MED LIST changes: +FER325 PO; +PROP20TA29 PO
[2019-10-02 08:43] VITALS: BP 160/61
== END 2019-10-02 08:43 | disposition home or self-care (01) ==
LOC: MED 06:26
DX: K94.23 Gastrostomy malfunction (principal); K21.9 Gastro-esophageal reflux disease without esophagitis; I10 Essential (primary) hypertension; E03.9 Hypothyroidism, unspecified; Z98.890 Other specified postprocedural states; Z87.448 Personal history of other diseases of urinary system; Z79.899 Other long term (current) drug therapy; Z88.0 Allergy status to penicillin; Z88.1 Allergy status to other antibiotic agents; Z88.8 Allergy status to other drugs, medicaments and biological substances
CPT/HCPCS: 43762; 74241; 99283; 99284

== ENCOUNTER 2019-12-03 10:54 | Inpatient (IN) | payer OTHER, MEDICAID ==
[~2019-12-03] VITALS: Ht 162.6 cm; Wt 51.7 kg
--- NOTE | 2019-12-03 10:54 | NUR ---
CARLOS CUMMINGS [facility] TO ER BED 06.
[2019-12-03 11:01] VITALS: BP 117/43
--- NOTE | 2019-12-03 11:35 | NUR ---
Wilma arriaga in [facility] - 12/03/19 at 1324 by MED1 BIB WITH REPORTS OF G-TUBE BLEEDING AND ABD DISTENTION STARTED 10 MIN MERCHANDISE FLOW ASSOCIATE.
--- NOTE | 2019-12-03 11:35 | NUR ---
74/M BIBA FROM [facility] WITH REPORTS OF G-TUBE BLEEDING AND ABD DISTENTION STARTED 10 MIN DAY TRADER. NEUROLOGICALLY AT BASE LINE. PATIENT POSITIONED FOR COMFORT; HOB ELEVATED; BEDRAILS UP X2; BED DOWN. ER MD MADE AWARE OF PT STATUS.
[2019-12-03] MEDS ORDERED: NACL 0.9% 1,000 ML IV ONE (11:45)
--- NOTE | 2019-12-03 12:04 | NUR ---
attempted x3 iv start, no success---md notified
--- NOTE | 2019-12-03 12:15 | NUR ---
lab at bedside/ ekg initiated
--- NOTE | 2019-12-03 12:24 | NUR ---
pt to ct
[2019-12-03 12:52] LABS: BASOPHILS % (AUTO) 0.3 % (0.0-2.0); EOSINOPHILS % (AUTO) 0.3 % (0.0-4.0); HEMATOCRIT 21.1 % (36-52); LYMPHOCYTES # (AUTO) 0.9 K/uL (2.0-11.5); LYMPHOCYTES % (AUTO) 18.6 % (20.5-51.1); MEAN CORPUSCULAR HEMOGLOBIN 31 pg (27-31); MEAN CORPUSCULAR HGB CONC 32 g/dL (33-37); MEAN CORPUSCULAR VOLUME 95.6 fL (80-94); MONOCYTES # (AUTO) 0.7 K/uL (0.8-1.0); MONOCYTES % (AUTO) 14.1 % (1.7-9.3); NEUTROPHILS # (AUTO) 3.1 K/uL (1.8-7.7); NEUTROPHILS % (AUTO) 66.7 % (42.2-75.2); PLATELET COUNT (AUTO) 119 K/uL (140-450); RED BLOOD CELL COUNT(AUTO) 2.21 MIL/uL (4.20-6.10); RED CELL DISTRIBUTION WIDTH 16.4 % (11.6-13.7); WHITE BLOOD COUNT (AUTO) 4.6 K/uL (4.8-10.8)
[2019-12-03 12:57] LABS: HEMOGLOBIN 6.8 g/dL (12.0-18.0)
[2019-12-03 12:59] LABS: ANION GAP 14.5 (8-16); CARBON DIOXIDE 26.8 mmol/L (21-32); CHLORIDE 100 mmol/L (98-107); CREATININE 1.1 mg/dL (0.7-1.3); GLUCOSE 110 mg/dL (74-106); POTASSIUM 4.3 mmol/L (3.5-5.1); SODIUM SERUM 137 mmol/L (136-145); UREA NITROGEN, BLOOD 19 mg/dL (7-18)
[2019-12-03 13:00] LABS: PROTHROMBIN TIME 10.7 secs (10.8-13.4)
[2019-12-03 13:07] LABS: ALBUMIN 2.8 g/dL (3.4-5.0); ASPARTATE AMINOTRANSFERASE 54 U/L (15-37); TOTAL BILIRUBIN 0.4 mg/dL (0.0-1.0)
[2019-12-03] MEDS ORDERED: MORPHINE SULFATE 2 MG/ML SYR IVP PRN (14:15)
[2019-12-03] MEDS ORDERED: ACETAMINOPHEN 325 MG TAB PO PRN (14:15)
[2019-12-03] MEDS ORDERED: HYDROcodone/APAP 7.5/325 MG 1 TAB PO PRN (14:15)
[2019-12-03] MEDS ORDERED: ONDANSETRON 4 MG/2 ML VIAL IM/IVP PRN (14:15)
--- NOTE | 2019-12-03 15:16 | NUR ---
PT ARRIVED UNIT VIA DIANA MAYA ER NURSE. PT IS AAOX 1 TO NAME. RESPIRATION EVEN AND UNLABORED ON RA. FLACC 0. NO SIGNS OF DISTRESS NOTED. IV ON L HAND 24G, CLEAN AND INTACT, NOT INFUSING AT THIS TIME. SKIN CLEAN AND DRY. G-TUBE IN PLACE, COVERED WITH DRESSING, DRY. PT IS BEDREST AND INCONTINENT. ORIENTED PT TO THE ROOM AND INSTRUCTED PT ON HOW TO USE THE CALL LIGHT, LIGHTS, BED REMOTE, TV. REINFORCEMENT NEEDED DUE TO PT'S MENTAL STATUS. MRSA COLLECTED. TELE MONITOR ATTACHED. SAFETY MEASURES IN PLACE. BED IN LOW POSITION AND CALL LIGHT WITHIN REACH.
--- NOTE | 2019-12-03 15:16 | NUR ---
Patient will be admitted to care of DR IQBAL. Admited to TELE. Will go to room 112B. Belongings list completed. Report to SOREN CRUMP.
--- NOTE | 2019-12-03 15:25 | NUR ---
RECEIVED A CALL FROM LAB GIRISH THAT BLOOD CELL PACK IS READY. INFORMED THAT ONCE NEW IV ESTABLISH AND WILL CIVIL ENGINEERING INTERN RED BLOOD CELL. GIRISH WAS AWARE.
--- NOTE | 2019-12-03 15:35 | NUR ---
NPO MAINTAINED AND SIGN POSTED BY DOOR. PRODUCT EXAMINER WAS AWARE THAT PT IS NPO.
--- NOTE | 2019-12-03 16:00 | NUR ---
STARTED NEW IV ON DOROTHEA 20G, CLEAN AND INTACT, PT TOLERATED WELL. NO SIGNS OF DISTRESS NOTED. TELE MONITOR ATTACHED. SAFETY MEASURES IN PLACE. BED ALARM ACTIVATED.
--- NOTE | 2019-12-03 16:25 | NUR ---
METAL FLOORING INSTALLER IS BY BEDSIDE GOING ABB US AND BROTHER STEPHANIE ALSO BY BEDSIDE. NO SIGNS OF DISTRESS NOTED. TELE MONITOR ATTACHED.
[2019-12-03 16:43] LABS: FREE T4 (FREE THYROXINE) 1.51 ng/dL (0.76-1.46); HDL CHOLESTEROL 44 mg/dL (40-60); LDL (CALC) 74 mg/dL (60-100); LIPASE 191 U/L (73-393); MAGNESIUM 2.1 mg/dL (1.8-2.4); PHOSPHORUS 3.3 mg/dL (2.5-4.9); THYROID STIMULATING HORMONE 14.58 uIU/mL (0.34-3.74); TRIGLYCERIDES 83 mg/dL (30-150)
--- NOTE | 2019-12-03 16:50 | NUR ---
RECEIVED A CRITICAL LAB FOR LACTIC ACID 2.4. REPORTED TO DR BELLAMY AND DR BELLAMY WAS AWARE. PER DR BELLAMY, CONTINUE WITH ND AT 80 ML/HR.
[2019-12-03] MEDS: NACL 0.9% 1,000 ML IV SCH ×2 (17:10→23:20)
[2019-12-03] MEDS ORDERED: CRUSHER, PILL MC ONE (17:18)
[2019-12-03] MEDS: PROPRANOLOL 20 MG TAB PO SCH (17:23)
[2019-12-03] MEDS: CARBIDOPA/LEVODOPA 25/100 MG 1 TAB GT SCH (17:23)
[2019-12-03] MEDS: PANTOPRAZOLE 40 MG INJ VIAL IVP SCH (17:25)
[2019-12-03] MEDS: FERROUS SULFATE 325 MG TABEC PO SCH (17:26)
--- NOTE | 2019-12-03 17:26 | NUR ---
ADMINISTERED MEDS VIA G-TUBE PER MD ORDER, FLUSH BEFORE AND AFTER MEDS ADMINISTER, MEDS ED PROVIDED TO PT AND PT'S BROTHER STEPHANIE AT BEDSIDE. PT IS IN BLOOD TRANSFUSION, NO ADVERSE REACTION NOTED. TELE MONITOR ATTACHED. VITAL SIGNS MONITOR AT BEDSIDE. SAFETY MEASURES IN PLACE.
--- NOTE | 2019-12-03 18:30 | NUR ---
BLOOD TRANSFUSION IS INFUSING AT 100 ML/HR. NO ADVERSE REACTION NOTED. PT AWAKE AND RESTING ON BED. RESPIRATION EVEN AND UNLABORED ON RA, SPO2 AT 99%. FLACC 0. BROTHER STEPHANIE BY BEDSIDE. TELE MONITOR ATTACHED. SAFETY MEASURES IN PLACE.
--- NOTE | 2019-12-03 19:20 | NUR ---
ENDORSED PT AT BEDSIDE TO MANAGER MAINTENANCE NURSE FOR CONTINUITY OF CARE. PT AWAKE AND RESTING ON BED. FLACC 0. RESPIRATION EVEN AND UNLABORED ON RA. VITAL SIGNS MONITOR AT BEDSIDE. NO SIGNS OF DISTRESS AND BLOOD TRANSFUSION REACTION NOTED. BLOOD TRANSFUSION IS INFUSING AT 100 ML/HR AT THIS TIME. MANAGER MAINTENANCE NURSE AWATRE THE 2ND UNIT IS READY AND HAVEN'T START YET. TELE MONITOR ATTACHED. SAFETY MEASURES IN PLACE.
--- NOTE | 2019-12-03 19:30 | NUR ---
RECEIVED BEDSIDE REPORT FROM AM SHIFT RN FOR PT'S CONTINUITY OF CARE. PT IS APHASIC, HAS BUE CONTRACTURES, ON TAKE OFF WORKER, ON ROOM AIR, CURRENTLY RECEIVING 1ST UNIT OF PRBC VS ARE WNL, HAS RIGHT UA 20G WITH PRBC TRANSFUSING, AND LEFT W 24G WITH NS AT 80ML/HR, PT DOES NOT SHOW ANY SIGNS OF DISTRESS OR DISCOMFORT. SAFETY MEASURES IN PLACE. WILL MONITOR PT THROUGHOUT SHIFT.
[2019-12-03 20:00] VITALS: BP 117/52
--- NOTE | 2019-12-03 23:00 | NUR ---
ADMINISTERED SCHEDULED MEDICATIONS CRUSHED IN APPLESAUCE. PT TOLERATED IT WELL. PER MD, DO NOT USE GTUBE UNTIL VERIFIED. CONTINUE TO CRUSH SCHEDULED MEDS TOLERATED. BLOOD TRANSFUSION PRBC 2ND UNIT STARTED AT 2245. VERIFIED WITH LINE UP WORKER, TRANSFUSION PROTOCOL FOLLOWED. NO REACTION NOTED. WILL CONTINUE TO MONITOR PT.
[2019-12-03] MEDS: ASCORBIC ACID 500 MG TAB GT SCH (23:01)
[2019-12-03] MEDS: DIVALPROEX 250 MG TABEC PO SCH (23:01)
[2019-12-04] VITALS: BP 121/71
--- NOTE | 2019-12-04 01:30 | NUR ---
2ND UNIT OF PRBC ENDED. VS CHECKED AND CHARTED. NO REACTION NOTED. PT SHOWS NO SIGNS OF DISTRESS OR DISCOMFORT. IVF SWITCHED TO RIGHT FA IV SITE. WILL CONTINUE TO MONITOR PT.
--- NOTE | 2019-12-04 02:00 | NUR ---
CBC DRAWN PER MD ORDER. PT ASLEEP WITH NO SIGNS OF DISTRESS.
[2019-12-04 02:17] LABS: ANION GAP 14.1 (8-16); CARBON DIOXIDE 26.8 mmol/L (21-32); CHLORIDE 102 mmol/L (98-107); GLUCOSE 105 mg/dL (74-106); POTASSIUM 4.9 mmol/L (3.5-5.1); SODIUM SERUM 138 mmol/L (136-145); UREA NITROGEN, BLOOD 17 mg/dL (7-18)
[2019-12-04 04:00] VITALS: BP 120/52
--- NOTE | 2019-12-04 04:30 | NUR ---
VS CHECKED AND CHARTED. PT SLEEPING WITH NO SIGNS OF DISTRESS.
[2019-12-04 04:39] LABS: BASOPHILS % (AUTO) 0.5 % (0.0-2.0); EOSINOPHILS % (AUTO) 0.5 % (0.0-4.0); HEMATOCRIT 26.1 % (36-52); HEMOGLOBIN 8.6 g/dL (12.0-18.0); LYMPHOCYTES # (AUTO) 0.8 K/uL (2.0-11.5); LYMPHOCYTES % (AUTO) 23.5 % (20.5-51.1); MEAN CORPUSCULAR HEMOGLOBIN 30 pg (27-31); MEAN CORPUSCULAR HGB CONC 33 g/dL (33-37); MEAN CORPUSCULAR VOLUME 90.2 fL (80-94); MONOCYTES # (AUTO) 0.5 K/uL (0.8-1.0); MONOCYTES % (AUTO) 14.2 % (1.7-9.3); NEUTROPHILS # (AUTO) 2.1 K/uL (1.8-7.7); NEUTROPHILS % (AUTO) 61.3 % (42.2-75.2); PLATELET COUNT (AUTO) 88 K/uL (140-450); RED BLOOD CELL COUNT(AUTO) 2.89 MIL/uL (4.20-6.10); RED CELL DISTRIBUTION WIDTH 18.6 % (11.6-13.7); WHITE BLOOD COUNT (AUTO) 3.5 K/uL (4.8-10.8)
[2019-12-04] MEDS ORDERED: LEVOTHYROXINE 0.075 MG TAB GT SCH (06:30)
--- NOTE | 2019-12-04 07:15 | NUR ---
PT'S CAREGIVER AT BEDSIDE. ENDORSED PT TO AM SHIFT RN FOR PT'S CONTINUITY OF CARE, ENDORSED UPDATE TO PT'S BOARD AND TOURS CAPTAIN GEOVANI SAN. PT AWAKE, WITH NO SIGNS OF DISTRESS. PT'S CAREGIVER AND FOOD SERVICE DRIVER VERBALIZED UNDERSTANDING.
--- NOTE | 2019-12-04 07:25 | NUR ---
RECEIVED BEDSIDE REPORT FROM DYNAMITE RECLAIMER NURSE ENRIQUE. PT IS AWAKE, NO S/S OF DISTRESS, CAREGIVER AT BEDSIDE. FALL PRECAUTIONS IN PLACE. PT IS ON ROOM AIR, SKIN IS INTACT. TWO IV SITES RUE 20 G INFUSING NS 80 ML/HR, AND L WRITS 24 G. PT HAS A G-TUBE, WHICH IS NON-FUNCTIONING AT THIS TIME DUE TO BLEEDING. PT IS NPO. PT TO BE SEEN BY SURGEON TODAY. CALL LIGHT IS WITHIN REACH. WILL CONTINUE TO MONITOR.
[2019-12-04 08:00] VITALS: BP 123/47
--- NOTE | 2019-12-04 08:40 | NUR ---
PATIENT HAS BEEN SCREENED AND CATEGORIZED HIGH NUTRITION RISK. PATIENT WILL BE SEEN WITHIN 1-2 DAYS OF ADMISSION. 12/04/19-12/05/[address]
[2019-12-04] MEDS: POLYETHYLENE GLYCOL 17 GM/PKT GT SCH (09:00)
[2019-12-04] MEDS ORDERED: METHIMAZOLE 5 MG TAB PO SCH (09:00)
[2019-12-04] MEDS: PANTOPRAZOLE 40 MG INJ VIAL IVP SCH (10:43)
[2019-12-04] MEDS: DIVALPROEX 250 MG TABEC PO SCH ×2 (10:44→22:58)
[2019-12-04] MEDS: LACTOBACILLUS RHAMNOSUS GG 1 EACH CAP PO SCH (10:44)
[2019-12-04] MEDS: ASCORBIC ACID 500 MG TAB GT SCH ×2 (10:44→22:58)
[2019-12-04] MEDS: CARBIDOPA/LEVODOPA 25/100 MG 1 TAB GT SCH ×3 (10:44→16:02)
[2019-12-04] MEDS: PROPRANOLOL 20 MG TAB PO SCH ×3 (10:44→16:02)
[2019-12-04] MEDS: FERROUS SULFATE 325 MG TABEC PO SCH ×2 (10:45→16:02)
--- NOTE | 2019-12-04 10:54 | NUR ---
AM MEDS ADMINISTERED CRUSHED WITH PUDDING. PT TOLERATED WELL. HELD THE MIRALAX BECAUSE PT NOT ABLE TO TOLERATE LARGER AMTS OF PO LIQUID AT THIS TIME (DYSPHAGIA), AND PT'S G TUBE IS NOT WORKING.
--- NOTE | 2019-12-04 11:10 | NUR ---
PT CLEANED, CHANGED AND REPOSITIONED. LINENS CHANGED.
--- NOTE | 2019-12-04 11:27 | NUR ---
HEMOCCULT SAMPLE COLLECTED AND TAKEN TO LAB.
[2019-12-04 12:00] VITALS: BP 110/80
--- NOTE | 2019-12-04 13:10 | NUR ---
TALKED TO DR BELLAMY ABOUT POSSIBLY SWITCHING PT'S FLUID TO D5 NS, SINCE PT IS NPO AND NOT GETTING ANY FEED THROUGH HIS G-TUBE. DR BELLAMY SAID TO TRY TO FLUSH AND ASPIRATE THE G-TUBE AND SEE IF IT STOPPED BLEEDING. FOR NOW, PER DR BELLAMY, PT NEEDS TO CONTINUE TO BE NPO. NO CHANGES TO PT'S IV FLUID EITHER.
--- NOTE | 2019-12-04 13:37 | NUR ---
SCREEN FOR LOW JARET SCALE AT RISK, CONTINUE TO FOLLOW PRESSURE ULCER PREVENTION INTERVENTIONS. -TURN AND REPOSITION PATIENT Q 2H -ASSESS AND MONITOR SKIN CONDITION DURING POSITION CHANGE -OFFLOAD BILATERAL HEELS BY PLACING PILLOWS UNDER CALVES AT ALL TIMES, UNLESS OTHERWISE CONTRAINDICATED -PRESSURE REDISTRIBUTION BY PLACING PILLOWS AND OFFLOADING SACRALCOCCYX -KEEP SKIN CLEAN AND DRY AT ALL TIMES.
--- NOTE | 2019-12-04 13:46 | NUR ---
ATTEMPTED TO ASPIRATE AND FLUSH PT'S G-TUBE WITH WATER. NO RESISTANCE TO FLUSHING, AND >5 ML RESIDUAL FROM ASPIRATION. NO S/S OF BLEEDING FROM G-TUBE. AFTERNOON MEDS GIVEN VIA THE G-TUBE.
--- NOTE | 2019-12-04 15:22 | NUR ---
12/04/19 RD INITIAL ASSESSMENT COMPLETED PLEASE REFER TO NUTRITION ASSESSMENT UNDER CARE ACTIVITY FOR ESTIMATED NUTRITIONAL NEEDS. 1. CONTINUE NPO DIET TOLERATED 2. IF/WHEN MEDICALLY APPROPRIATE, RD RECOMMEND ENTERAL NUTRITION JEVITY 1.2 @65 ML/HR, FWF 155 ML, Q6H -THIS WILL PROVIDE (KCALS, PROTEIN,) 3. RD TO FOLLOW-UP 2-3 DAYS, HIGH RISK LUCIANA CUMMINGS RD Addendum: 12/04/19 at [address] -THIS WILL PROVIDE 1872 KCALS AND 87 GM PROTEIN. THIS IS MEETING >100% OF ESTIMATED KCAL NEEDS AND >80% OF PATIENT ESTIMATED PROTEIN NEEDS
[2019-12-04] MEDS: NACL 0.9% 1,000 ML IV SCH (15:57)
[2019-12-04 16:00] VITALS: BP 111/58
--- NOTE | 2019-12-04 16:13 | NUR ---
ADMINISTERED EVENING MEDS VIA G -TUBE, G-TUBE IS FUNCTIONING WELL, NO BLEEDING NOTED.
--- NOTE | 2019-12-04 19:15 | NUR ---
CT ENDORSED TO WHITE SOURER NURSE IN STABLE CONDITION.
--- NOTE | 2019-12-04 19:16 | NUR ---
RECEIVED BEDSIDE REPORT FROM AM SHIFT SHELLY PT IS AWAKE, NO S/S OF DISTRESS, FALL PRECAUTIONS IN PLACE. PT IS ON ROOM AIR, SKIN IS INTACT. TWO IV SITES RUE 20 G INFUSING NS 80 ML/HR, AND L WRIST 24 G. PT HAS A G-TUBE. PT IS NPO. CALL LIGHT IS WITHIN REACH. WILL CONTINUE TO MONITOR.
[2019-12-04 20:00] VITALS: BP 111/58
--- NOTE | 2019-12-04 21:12 | NUR ---
CHECKED ON G TUBE NO BLEEDING NOTED; WILL FLUSH WITH WATER AND ADMINISTER MEDS THERE
[2019-12-04] MEDS: DEXT 5% / NACL 0.45% 1,000 ML IV SCH (22:59)
--- NOTE | 2019-12-05 02:38 | NUR ---
PT SLEEPING. NO RESPIRATORY DISTRESS, NO PAIN. WILL CONTINUE TO MONITOR
--- NOTE | 2019-12-05 03:07 | NUR ---
PT CHECKED NO SIGNS AND SYMPTOMS OF DISTRESS, SLEEPING, WILL MONITOR PT
--- NOTE | 2019-12-05 07:20 | NUR ---
RECEIVED BEDSIDE REPORT FROM INSPECTING SUPERVISOR NURSE, PT IS AWAKE, NO S/S OF DISTRESS, IV RUNNING D5 1/2 NS 80 ML/HR. BOTH IV'S ARE INTACT. FALL PRECAUTIONS IN PLACE. CALL LIGHT WITHIN REACH. NPO EXCEPT MEDS. G TUBE INTACT. WILL CONTINUE TO MONITOR.
[2019-12-05 07:51] LABS: BASOPHILS % (AUTO) 0.6 % (0.0-2.0); EOSINOPHILS % (AUTO) 0.6 % (0.0-4.0); HEMATOCRIT 30.6 % (36-52); HEMOGLOBIN 10.1 g/dL (12.0-18.0); LYMPHOCYTES % (AUTO) 20.5 % (20.5-51.1); MEAN CORPUSCULAR HEMOGLOBIN 30 pg (27-31); MEAN CORPUSCULAR HGB CONC 33 g/dL (33-37); MEAN CORPUSCULAR VOLUME 91.4 fL (80-94); MONOCYTES # (AUTO) 0.8 K/uL (0.8-1.0); MONOCYTES % (AUTO) 15.6 % (1.7-9.3); NEUTROPHILS # (AUTO) 3.1 K/uL (1.8-7.7); NEUTROPHILS % (AUTO) 62.7 % (42.2-75.2); PLATELET COUNT (AUTO) 127 K/uL (140-450); RED BLOOD CELL COUNT(AUTO) 3.35 MIL/uL (4.20-6.10)
[2019-12-05 08:00] VITALS: BP 98/54
[2019-12-05] MEDS: PROPRANOLOL 20 MG TAB PO SCH ×3 (09:00→17:21)
[2019-12-05] MEDS: DEXT 5% / NACL 0.45% 1,000 ML IV SCH ×2 (09:50→22:20)
[2019-12-05 10:26] LABS: POTASSIUM 4.6 mmol/L (3.5-5.1); SODIUM SERUM 137 mmol/L (136-145)
[2019-12-05 10:27] LABS: ANION GAP 14.4 (8-16); CARBON DIOXIDE 25.2 mmol/L (21-32); CHLORIDE 102 mmol/L (98-107); CREATININE 1.1 mg/dL (0.7-1.3); GLUCOSE 114 mg/dL (74-106); UREA NITROGEN, BLOOD 18 mg/dL (7-18)
[2019-12-05 10:38] LABS: MAGNESIUM 2.1 mg/dL (1.8-2.4); PHOSPHORUS 3.5 mg/dL (2.5-4.9)
[2019-12-05] MEDS: PANTOPRAZOLE 40 MG INJ VIAL IVP SCH (10:45)
[2019-12-05] MEDS: POLYETHYLENE GLYCOL 17 GM/PKT GT SCH (10:46)
[2019-12-05] MEDS: CARBIDOPA/LEVODOPA 25/100 MG 1 TAB GT SCH ×3 (10:46→17:21)
[2019-12-05] MEDS: LACTOBACILLUS RHAMNOSUS GG 1 EACH CAP PO SCH (10:46)
[2019-12-05] MEDS: DIVALPROEX 250 MG TABEC PO SCH ×2 (10:46→22:18)
[2019-12-05] MEDS: ASCORBIC ACID 500 MG TAB GT SCH ×2 (10:46→22:18)
[2019-12-05] MEDS: FERROUS SULFATE 325 MG TABEC PO SCH ×2 (10:52→17:21)
--- NOTE | 2019-12-05 12:23 | NUR ---
PT CLEANED, CHANGED AND REPOSITIONED. BED LINENS CHANGED
--- NOTE | 2019-12-05 13:24 | NUR ---
HELD THE AFTERNOON PROPRANOLOL DUE TO DECREASED BP. PT TOLERATED THE SCHEDULED SINEMET WELL VIA G-TUBE
--- NOTE | 2019-12-05 15:28 | NUR ---
TUBE FEEDING INFUSING PER MD ORDER.
--- NOTE | 2019-12-05 15:40 | NUR ---
DC PLANNING CALLED PT'S BROTHER CALVIN BROWN [phone] LEFT A MESSAGE FOR IF HE CHOOSE ANY OTHER HOSPICE COMPANY. CALLED 3 TIMES NO ANSWER . PATIENT HAS A DC ORDER TO GO BACK TO [facility] WITH HOSPICE. CALLED [facility] SPOKE WITH [facility] [employer] FACTORY WORKER ,STATED SHE TALKED TO PT'S BROTHER STEPHANIE TOLD HER HE DOESN'T WANT HIS BROTHER TO BE ON HOSPICE AND HE IS AWARE OF DC TODAY FROM THE HOSPITAL . NOTIFIED DR HERNANDEZ AND THE NURSE SHELLY.PT IS GOING BACK TO [facility] AND DORIAN WILL MIGRATION AGENT THE PT.
[2019-12-05 16:00] VITALS: BP 119/53
--- NOTE | 2019-12-05 19:25 | NUR ---
ENDORSED PT TO SALESPERSON FLOOR COVERINGS NURSE IN STABLE CONDITION
--- NOTE | 2019-12-05 19:27 | NUR ---
RECEIVED BEDSIDE REPORT FROM AM SHIFT SHELLY PT IS AWAKE, NO S/S OF DISTRESS, FALL PRECAUTIONS IN PLACE. PT IS ON ROOM AIR, SKIN IS INTACT. TWO IV SITES DOROTHEA 20 G INFUSING NS 80 ML/HR D5 1/2 NS AT 80, AND L WRIST 24 G, SL. PT WITH G TUBE FEEDING JEVITY 1. 2. AT 65 ML/HR (155 WATER FLUSH EVERY 6), TOLERATING WELL . CALL LIGHT IS WITHIN REACH. WILL CONTINUE TO MONITOR.
[2019-12-05 21:00] VITALS: BP 100/48
--- NOTE | 2019-12-05 21:55 | NUR ---
PT CLEANED, CHANGED AND REPOSITIONED. BED LINENS CHANGED
--- NOTE | 2019-12-05 22:00 | NUR ---
PT RESIDUAL CHECKED 20 ML, PT TOLERATING G TUBE FEEDING.
--- NOTE | 2019-12-05 23:50 | NUR ---
PATIENTS IVD D5 1/2 NS AT [address] REINOSO IF WE SHOULD CONTINUE WHEN PT HAS ALREADY A GTUBE FEEDING OF JEVITY 1. [address] HERNANDEZ SAID TO CONTINUE ORDERS.
[2019-12-06] MEDS: DEXT 5% / NACL 0.45% 1,000 ML IV SCH (02:33)
--- NOTE | 2019-12-06 06:00 | NUR ---
CHANGED G-TUBE FEEDING W/ THE SAME FEEDING FREQ, DOSAGE ORDERED.
--- NOTE | 2019-12-06 06:51 | NUR ---
PT AWAKE, ALERT X 0, PT MENTALLY RETARD. PT IN STABLE CONDITION WILL ENDORSE TO NEXT SHIFT
--- NOTE | 2019-12-06 07:25 | NUR ---
RECEIVED REPORT FROM NIGHT NURSE. PT IN STABLE CONDITION. AAOX1. NO DISTRESS NOTED, FLACC 0. GTUBE IN PLACE AND FEEDING RUNNING PER ORDER JEVITY 1.2. SKIN INTACT. RESPIRATIONS EVEN AND UNLABORED ON ROOM AIR. IV IN PLACE R UA 20G PATENT AND ASYMPTOMATIC INFUSING PER ORDER. BED IN LOW POSITION. SAFETY MEASURES IN PLACE. CALL LIGHT WITHIN REACH. WILL CONTINUE TO MONITOR.
[2019-12-06 08:00] VITALS: BP 124/56
[2019-12-06] MEDS: POLYETHYLENE GLYCOL 17 GM/PKT GT SCH (09:46)
[2019-12-06] MEDS: FERROUS SULFATE 325 MG TABEC PO SCH (09:46)
[2019-12-06] MEDS: CARBIDOPA/LEVODOPA 25/100 MG 1 TAB GT SCH (09:46)
[2019-12-06] MEDS: PANTOPRAZOLE 40 MG INJ VIAL IVP SCH (09:47)
[2019-12-06] MEDS: ASCORBIC ACID 500 MG TAB GT SCH (09:47)
[2019-12-06] MEDS: LACTOBACILLUS RHAMNOSUS GG 1 EACH CAP PO SCH (09:47)
[2019-12-06] MEDS: DIVALPROEX 250 MG TABEC PO SCH (09:47)
[2019-12-06] MEDS: PROPRANOLOL 20 MG TAB PO SCH (09:48)
--- NOTE | 2019-12-06 09:58 | NUR ---
MEDICATIONS ADMINISTERED PER ORDER. PT TOLERATED WELL. GTUBE RESIDUALS 0ML. NO DISTRESS NOTED. WILL CONTINUE TO MONITOR.
[2019-12-06 11:57] VITALS: BP 124/56
--- NOTE | 2019-12-06 12:30 | NUR ---
PT DISCHARGED AT THIS TIME. DISCHARGE AND FOLLOWUP TEACHING GIVEN TO PT AND [facility] STAFF. PT UNABLE TO SIGN DISCHARGE PAPERWORK. FLU AND PNA VACCINES UP TO DATE. RESPIRATIONS EVEN AND UNLABORED ON ROOM AIR. NO DISTRESS NOTED, FLACC 0. IV SITES REMOVED WITH MINIMAL BLOOD LOSS AND LUMENS INTACT. ID BANDS REMOVED. BELONGINGS RETURNED TO PT. PT ESCORTED OFF UNIT ACCOMPANIED BY 2 MEMBERS OF [facility] VIA PRIVATE TRANSPORT. DISCHARGED TO [facility].
== END 2019-12-06 12:30 | disposition home or self-care (01) | DRG 377 ==
LOC: MED 10:54 → MTU 14:18
PROVIDERS: ADMIT General Practice; ATTEND General Practice
PROC: 30233N1 Transfusion of Nonautologous Red Blood Cells into Peripheral Vein, Percutaneous Approach (ICD-10-PCS; principal; 2019-12-03)
DX: K92.2 Gastrointestinal hemorrhage, unspecified (principal); E43 Unspecified severe protein-calorie malnutrition; R53.2 Functional quadriplegia; K94.23 Gastrostomy malfunction; Z68.1 Body mass index [BMI] 19.9 or less, adult; I10 Essential (primary) hypertension; K21.9 Gastro-esophageal reflux disease without esophagitis; E03.9 Hypothyroidism, unspecified; K43.9 Ventral hernia without obstruction or gangrene; D64.9 Anemia, unspecified; G20 Parkinson's disease; I73.9 Peripheral vascular disease, unspecified; H40.9 Unspecified glaucoma; M81.0 Age-related osteoporosis without current pathological fracture; K86.9 Disease of pancreas, unspecified; Z88.1 Allergy status to other antibiotic agents; Z88.0 Allergy status to penicillin; Z88.8 Allergy status to other drugs, medicaments and biological substances; Z90.5 Acquired absence of kidney; Z86.73 Personal history of transient ischemic attack (TIA), and cerebral infarction without residual deficits
CPT/HCPCS: 36415; 36430; 71045; 76700; 80048; 80053; 82140; 82272; 82550; 83036; 83605; 83690; 83735; 83880; 84100; 84439; 84443; 85025; 85610; 85730; 86886; 86900; 86901; 86920; 87081; 93005; 99291; C9113; G0482; J7030; P9016; Q0092

== ENCOUNTER 2019-12-15 14:23 | Inpatient (IN) | payer OTHER, MEDICAID ==
[~2019-12-15] VITALS: Ht 180.3 cm; Wt 65.3 kg
[2019-12-15 14:23] VITALS: BP 140/70
--- NOTE | 2019-12-15 14:23 | NUR ---
TO BED #02 BROUGHT IN BY AMBULANCE FROM [facility], WITH C/O ABD DISTENTION
[2019-12-15 15:30] LABS: BASOPHILS % (AUTO) 1.1 % (0.0-2.0); EOSINOPHILS % (AUTO) 0.5 % (0.0-4.0); HEMATOCRIT 27.7 % (36-52); HEMOGLOBIN 8.9 g/dL (12.0-18.0); LYMPHOCYTES # (AUTO) 0.9 K/uL (2.0-11.5); LYMPHOCYTES % (AUTO) 27.2 % (20.5-51.1); MEAN CORPUSCULAR HEMOGLOBIN 30 pg (27-31); MEAN CORPUSCULAR HGB CONC 32 g/dL (33-37); MEAN CORPUSCULAR VOLUME 92.2 fL (80-94); MONOCYTES # (AUTO) 0.6 K/uL (0.8-1.0); MONOCYTES % (AUTO) 18.1 % (1.7-9.3); NEUTROPHILS # (AUTO) 1.8 K/uL (1.8-7.7); NEUTROPHILS % (AUTO) 53.1 % (42.2-75.2); PLATELET COUNT (AUTO) 99 K/uL (140-450); RED BLOOD CELL COUNT(AUTO) 3.01 MIL/uL (4.20-6.10); RED CELL DISTRIBUTION WIDTH 16.8 % (11.6-13.7); WHITE BLOOD COUNT (AUTO) 3.3 K/uL (4.8-10.8)
[2019-12-15 15:54] LABS: ALBUMIN 2.6 g/dL (3.4-5.0); ANION GAP 12.9 (8-16); ASPARTATE AMINOTRANSFERASE 63 U/L (15-37); CARBON DIOXIDE 28.5 mmol/L (21-32); CHLORIDE 102 mmol/L (98-107); GLUCOSE 106 mg/dL (74-106); LIPASE 183 U/L (73-393); POTASSIUM 4.4 mmol/L (3.5-5.1); SODIUM SERUM 139 mmol/L (136-145); TOTAL BILIRUBIN 0.5 mg/dL (0.0-1.0); UREA NITROGEN, BLOOD 17 mg/dL (7-18)
--- NOTE | 2019-12-15 16:02 | NUR ---
74 YO M BIBA FROM [facility] HOME C/O PROGRESSING ABDOMINAL DISTENTION X 3 DAYS. PT ALSO WITH URINARY RETENTION; 100ML URINE DRAINED PRIOR TO BEING BROUGHT TO ER. NO VOMITING, FEVER, COUGHM COLDS. LBM: 12/15/2019. PATIENT WITH DEMENTIA. ABDOMEN IS FIRM AND TENDER WITH HYPOACTIVE BOWEL SOUNDS ON ALL QUADRANTS. PATIENT POSITIONED FOR COMFORT; HOB ELEVATED; BEDRAILS UP X2; BED DOWN. ER MD MADE AWARE OF PT STATUS.
[2019-12-15] MEDS ORDERED: LEVOFLOXACIN 500 MG/D5W PREMIX 100 ML IV ONE ×2 (16:20→17:40)
[2019-12-15] MEDS ORDERED: NACL 0.9% 1,000 ML IV SCH (16:24)
[2019-12-15] MEDS ORDERED: ACETAMINOPHEN 325 MG TAB PO PRN (16:25)
[2019-12-15] MEDS ORDERED: HYDROcodone/APAP 7.5/325 MG 1 TAB PO PRN (16:25)
[2019-12-15] MEDS ORDERED: MORPHINE SULFATE 2 MG/ML SYR IVP PRN ×2 (16:25→22:10)
[2019-12-15] MEDS ORDERED: ONDANSETRON 4 MG/2 ML VIAL IM/IVP PRN (16:25)
[2019-12-15] MEDS ORDERED: DOCUSATE SODIUM 100 MG GELCAP PO PRN (16:25)
[2019-12-15] MEDS ORDERED: SIME80TA22 PO (17:03)
[2019-12-15] MEDS ORDERED: METO-485 PO (17:03)
[2019-12-15] MEDS ORDERED: HYDR-5122 PO (17:03)
[2019-12-15] MEDS ORDERED: TAMS0.4C97 PO (17:03)
[2019-12-15] MEDS ORDERED: AMLO5TAB PO (17:03)
[2019-12-15] MEDS ORDERED: PRAM0.5T4 PO (17:03)
--- NOTE | 2019-12-15 18:19 | NUR ---
Patient will be admitted to care of DR IQBAL. Admited to [facility]. Will go to room 122A. Belongings list completed. Report to ALISIA NAVA.
--- NOTE | 2019-12-15 19:45 | NUR ---
RECEIVED PATIENT FROM ER NURSE. PT CAME IN [facility]. PT NOT AMBULATORY. NO SOB OR ANY RESPIRATORY DISTRESS NOTED. IV SITE ON L WRIST, 22G, PATENT, INTACT AND ASYMPTOMATIC. TURNER CATHETER NOTED. ABDOMEN DISTENDED NOTED. BOARD UPDATED, SKIN WARM AND DRY TO TOUCH. CALL LIGHT WITHIN REACH. BED IN LOW POSITION.
[2019-12-15 20:00] VITALS: BP 125/79
[2019-12-15] MEDS ORDERED: ONDANSETRON 4 MG TAB GT PRN (22:05)
[2019-12-15] MEDS ORDERED: ACETAMINOPHEN 325 MG TAB GT PRN (22:05)
[2019-12-15] MEDS ORDERED: BISACODYL 10 MG SUPP RC SCH (22:05)
[2019-12-15] MEDS ORDERED: ONDANSETRON 4 MG/2 ML VIAL IVP PRN (22:10)
[2019-12-15] MEDS ORDERED: LORazepam 2 MG/ML VIAL IVP PRN (22:10)
--- NOTE | 2019-12-15 22:22 | NUR ---
PT SLEEPING IN BED COMFORTABLY. NO ACUTE DISTRESS NOTED.
[2019-12-15] MEDS: DEXT 5% /NACL 0.9% 1,000 ML IV SCH (23:08)
--- NOTE | 2019-12-16 | NUR ---
VS CHECKED, WITHIN PT'S BASELINE. WILL CONTINUE TO MONITOR.
--- NOTE | 2019-12-16 02:02 | NUR ---
PT SLEEPING IN BED COMFORTABLY. NO ACUTE DISTRESS NOTED.
--- NOTE | 2019-12-16 04:04 | NUR ---
PT SLEEPING IN BED COMFORTABLY. NO ACUTE DISTRESS NOTED. CHANGED G-TUBE SITE DRESSING.
[2019-12-16 06:50] LABS: BASOPHILS % (AUTO) 0.9 % (0.0-2.0); EOSINOPHILS % (AUTO) 0.8 % (0.0-4.0); HEMATOCRIT 24.7 % (36-52); HEMOGLOBIN 7.8 g/dL (12.0-18.0); LYMPHOCYTES # (AUTO) 0.6 K/uL (2.0-11.5); LYMPHOCYTES % (AUTO) 20.8 % (20.5-51.1); MEAN CORPUSCULAR HEMOGLOBIN 29 pg (27-31); MEAN CORPUSCULAR HGB CONC 32 g/dL (33-37); MEAN CORPUSCULAR VOLUME 92.4 fL (80-94); MONOCYTES # (AUTO) 0.6 K/uL (0.8-1.0); NEUTROPHILS # (AUTO) 1.7 K/uL (1.8-7.7); NEUTROPHILS % (AUTO) 58.5 % (42.2-75.2); PLATELET COUNT (AUTO) 90 K/uL (140-450); RED BLOOD CELL COUNT(AUTO) 2.68 MIL/uL (4.20-6.10); RED CELL DISTRIBUTION WIDTH 16.4 % (11.6-13.7)
[2019-12-16 07:12] LABS: ALBUMIN 2.1 g/dL (3.4-5.0); ANION GAP 10.8 (8-16); ASPARTATE AMINOTRANSFERASE 53 U/L (15-37); CARBON DIOXIDE 28.4 mmol/L (21-32); CHLORIDE 104 mmol/L (98-107); CREATININE 0.9 mg/dL (0.7-1.3); GLUCOSE 126 mg/dL (74-106); MAGNESIUM 1.8 mg/dL (1.8-2.4); PHOSPHORUS 3.2 mg/dL (2.5-4.9); POTASSIUM 4.2 mmol/L (3.5-5.1); SODIUM SERUM 139 mmol/L (136-145); TOTAL BILIRUBIN 0.4 mg/dL (0.0-1.0); UREA NITROGEN, BLOOD 16 mg/dL (7-18)
--- NOTE | 2019-12-16 07:20 | NUR ---
RECEIVED REPORT FROM NIGHT NURSE. PT IN BED IN STABLE CONDITION, APHASIC, NO DISTRESS NOTED, FLACC 0. RESPIRATIONS EVEN AND UNLABORED ON ROOM AIR. G TUBE IN PLACE. TURNER CATHETER IN PLACE. SKIN INTACT. IV IN PLACE LEFT WRIST 22G PATENT AND ASYMPTOMATIC INFUSING PER ORDER. ABDOMEN DISTENDED. BED IN LOW POSITION, SAFETY MEASURES IN PLACE. CALL LIGHT WITHIN REACH, WILL CONTINUE TO MONITOR.
[2019-12-16 08:00] VITALS: BP 135/72
[2019-12-16] MEDS: DEXT 5% /NACL 0.9% 1,000 ML IV SCH ×2 (08:10→10:36)
[2019-12-16] MEDS: POLYETHYLENE GLYCOL 17 GM/PKT GT SCH (09:22)
[2019-12-16] MEDS: HYDROcodone/APAP 5/325 MG 1 TAB TAB GT SCH ×2 (09:23→21:25)
[2019-12-16] MEDS: amLODIPine 5 MG TAB GT SCH (09:23)
[2019-12-16] MEDS: CARBIDOPA/LEVODOPA 25/100 MG 1 TAB GT SCH ×3 (09:23→17:26)
[2019-12-16] MEDS: FAMOTIDINE 20 MG TAB GT SCH (09:23)
[2019-12-16] MEDS: LEVOTHYROXINE 0.075 MG TAB GT SCH (09:23)
[2019-12-16] MEDS: FERROUS SULFATE 300 MG/5 ML UDC GT SCH ×2 (09:36→21:25)
[2019-12-16] MEDS: LACTULOSE 20 GM/30 ML UDC GT SCH ×2 (09:36→21:26)
--- NOTE | 2019-12-16 09:48 | NUR ---
MEDICATIONS ADMINISTERED PER ORDER. PT TOLERATED WELL, NO DISTRESS NOTED, SAFETY MEASURES IN PLACE. CALL LIGHT WITHIN REACH, WILL CONTINUE TO MONITOR.
[2019-12-16] MEDS ORDERED: CRUSHER, PILL MC ONE (09:52)
--- NOTE | 2019-12-16 10:12 | NUR ---
PATIENT HAS BEEN SCREENED AND CATEGORIZED HIGH NUTRITION RISK. PATIENT WILL BE SEEN WITHIN 1-2 DAYS OF ADMISSION. 12/16/19-12/17/[address]
--- NOTE | 2019-12-16 12:04 | NUR ---
MEDICATIONS ADMINISTERED PER ORDER. PT TOLERATED WELL, NO DISTRESS NOTED. CALL LIGHT WITHIN REACH, WILL CONTINUE TO MONITOR.
--- NOTE | 2019-12-16 12:31 | NUR ---
DISCHARGE PLAN ASSESSMENT [facility] Patient: Cody May : 1945 Age/Sex: 74/M Unit#: [id number] Room/Bed: 122/A User: Yarely Herrera CM Date: 12/16/19 12:16 Type: CM: Discharge Planning High Risk DC Screen Yes Re-Admission: Other Name: Brian May Greenback Relationship: Brother Pre-Admission Living Arrangements: Board and Care Prior ADL Needs Assistance Healthcare Decision Maker: Next of Kin Patient/Family Have Educational Needs No Tentative Discharge Plan/Destination: [facility] Transportation Needs: Transport provided by facility Referred to Engine Watchman: No Tentative Discharge Plan Summary: 74 y/o male admitted from [facility]. Pt admitted for pneumonia. Pt with hx of moderate dextroscoliosis of the thoracolumbar spine, pancreatic mass with metastatic disease. Pt was recently DC from [facility] on 12/[facility]/19 due to Gtube malfunction. Hospice Services were discussed with brother a part of the DC plan however brother was not receptive to hospice and declned services. Pt resides at intermediate, pt is nonverbal, able to ambulate with staff using a gait belt for safety. Pt has a wheelchair and walker at home. Pt needs assistance with ADLs. Pt's terrazzo worker helper through the [facility] is Shantelle Tomlinson . DC plan pending on further needs identified Home w/HH vs SNF. Signature: MARCELINO Bailey/ANALIA Date: Dec 16, 2019 Time: 12:30 Addendum: 12/19/19 at 1419 by Cierra Garcia CM DC PLANNING PER PREVIOUS RECORD PT'S BROTHER CALVIN , AND CAREGIVER NO HOSPICE FOR THE PT. DC PLAN TO GO BACK TO [facility] ANALIA TO FOLLOW
--- NOTE | 2019-12-16 14:42 | NUR ---
PT IN BED SLEEPING, NO DISTRESS NOTED, FLACC 0. SAFETY MEASURES IN PLACE. WILL CONTINUE TO MONITOR.
[2019-12-16 16:00] VITALS: BP 132/75
--- NOTE | 2019-12-16 17:03 | NUR ---
MEDICATIONS ADMINISTERED PER ORDER. PT TOLERATED WELL, NO DISTRESS NOTED. WILL CONTINUE TO MONITOR.
--- NOTE | 2019-12-16 19:05 | NUR ---
REPORT GIVEN TO NIGHT NURSE FOR CONTINUITY OF CARE.
--- NOTE | 2019-12-16 19:30 | NUR ---
RECEIVED BEDSIDE REPORT FROM AM SHIFT RN FOR PT'S CONTINUITY OF CARE. PT IS AWAKE, APHASIC, BEDBOUND, FOLLOWS SIMPLE COMMANDS, IS ON ROOM AIR, HAS LEFT WRIST 22G WITH D5NS AT 100ML/HR, HAS LUQ GTUBE, FLACC - 0. SAFETY MEASURES IN PLACE, AND CALL LIGHT IS WITHIN REACH. WILL MONITOR PT THROUGHOUT SHIFT.
[2019-12-16] MEDS ORDERED: NON-FORMULARY ITEM (Travoprost (Travatan Z 5 Ml) 1 DROP) OP SCH (21:00)
[2019-12-16] MEDS ORDERED: CLINDAMYCIN 600 MG/4 ML VIAL ONE (21:17)
[2019-12-16] MEDS: CLINDAMYCIN 600 MG in DEXTROSE 5% 50 ML IV SCH (21:26)
[2019-12-16] MEDS: LATANOPROST 0.005% OP 2.5 ML BTL OP SCH (21:27)
--- NOTE | 2019-12-16 21:30 | NUR ---
ADMINISTERED SCHEDULED MEDICATIONS ORDERED THROUGH G-TUBE. VERIFIED PLACEMENT BY AUSCULTATION, FLUSHED WITH WATER, NO FLUID ASPIRATED, PT TOLERATED MEDICATIONS WELL. WILL CONTINUE TO MONITOR PT.
--- NOTE | 2019-12-16 23:30 | NUR ---
INFLUENZA A&B CULTURE COLLECTED AND SENT TO LAB. PT SHOWS NO SIGNS OF DISTRESS. WILL CONTINUE TO MONITOR PT.
--- NOTE | 2019-12-16 23:45 | NUR ---
VS CHECKED AND CHARTED. PT AWAKE, NO SIGNS OF DISTRESS.
[2019-12-17] VITALS: BP 94/47
--- NOTE | 2019-12-17 02:00 | NUR ---
PT ASLEEP WITH NO SIGNS OF DISTRESS.
[2019-12-17] MEDS: DEXT 5% /NACL 0.9% 1,000 ML IV SCH ×2 (04:10→11:11)
--- NOTE | 2019-12-17 04:27 | NUR ---
PT ASLEEP WITH NO SIGNS OF DISTRESS. EMPTIED TURNER CATH AND PERFORMED TURNER CATH CARE.
[2019-12-17] MEDS ORDERED: CLINDAMYCIN 600 MG/4 ML VIAL ONE (04:52)
[2019-12-17] MEDS: CLINDAMYCIN 600 MG in DEXTROSE 5% 50 ML IV SCH ×3 (04:54→21:54)
--- NOTE | 2019-12-17 05:00 | NUR ---
ADMINISTERED SCHEDULED IV ABX ORDERED. PT CHANGED AND REPOSITIONED. PT TOLERATED IT WELL. PT AWAKE WITH NO SIGNS OF DISTRESS. WILL CONTINUE TO MONITOR PT.
[2019-12-17 05:52] LABS: ANION GAP 11.7 (8-16); CARBON DIOXIDE 28.2 mmol/L (21-32); CHLORIDE 106 mmol/L (98-107); GLUCOSE 134 mg/dL (74-106); POTASSIUM 3.9 mmol/L (3.5-5.1); SODIUM SERUM 142 mmol/L (136-145); UREA NITROGEN, BLOOD 15 mg/dL (7-18)
[2019-12-17 05:58] LABS: BASOPHILS % (AUTO) 0.7 % (0.0-2.0); EOSINOPHILS % (AUTO) 1.4 % (0.0-4.0); HEMATOCRIT 25.4 % (36-52); HEMOGLOBIN 8.2 g/dL (12.0-18.0); LYMPHOCYTES # (AUTO) 0.7 K/uL (2.0-11.5); LYMPHOCYTES % (AUTO) 22.8 % (20.5-51.1); MEAN CORPUSCULAR HEMOGLOBIN 30 pg (27-31); MEAN CORPUSCULAR HGB CONC 32 g/dL (33-37); MEAN CORPUSCULAR VOLUME 92.4 fL (80-94); MONOCYTES # (AUTO) 0.6 K/uL (0.8-1.0); MONOCYTES % (AUTO) 20.1 % (1.7-9.3); NEUTROPHILS # (AUTO) 1.7 K/uL (1.8-7.7); PLATELET COUNT (AUTO) 97 K/uL (140-450); RED BLOOD CELL COUNT(AUTO) 2.75 MIL/uL (4.20-6.10); RED CELL DISTRIBUTION WIDTH 16.8 % (11.6-13.7); WHITE BLOOD COUNT (AUTO) 3.1 K/uL (4.8-10.8)
--- NOTE | 2019-12-17 06:29 | NUR ---
PT ASLEEP WITH NO SIGNS OF DISTRESS. WILL ENDORSE PT TO AM SHIFT RN FOR PT'S CONTINUITY OF CARE.
--- NOTE | 2019-12-17 07:05 | NUR ---
RECEIVED REPORT FROM SOLAR POWER INSTALLER NURSE. PT IS SLEEPING. NO SIGNS OF DISTRESS. CALL LIGHT WITHIN PT'S REACH. PT HAS G TUBE. BED ON LOW, SIDERAILS UP. WILL CONTINUE TO MONITOR
[2019-12-17 08:00] VITALS: BP 95/50
[2019-12-17] MEDS ORDERED: MAGNESIUM HYDROXIDE 2400 MG/30 ML UDC GT SCH (09:00)
--- NOTE | 2019-12-17 09:30 | NUR ---
SCHEDULED MEDS GIVEN VIA G TUBE. NO RESIDUAL. PT IS STABLE. WILL CONTINUE TO MONITOR
[2019-12-17] MEDS: LACTULOSE 20 GM/30 ML UDC GT SCH ×2 (09:33→21:54)
[2019-12-17] MEDS: LEVOTHYROXINE 0.075 MG TAB GT SCH (09:34)
[2019-12-17] MEDS: FAMOTIDINE 20 MG TAB GT SCH (09:34)
[2019-12-17] MEDS: POLYETHYLENE GLYCOL 17 GM/PKT GT SCH (09:34)
[2019-12-17] MEDS: FERROUS SULFATE 300 MG/5 ML UDC GT SCH ×2 (09:34→21:54)
[2019-12-17] MEDS: CARBIDOPA/LEVODOPA 25/100 MG 1 TAB GT SCH ×3 (09:34→17:32)
[2019-12-17] MEDS: amLODIPine 5 MG TAB GT SCH (09:35)
[2019-12-17] MEDS: HYDROcodone/APAP 5/325 MG 1 TAB TAB GT SCH ×2 (09:35→21:55)
--- NOTE | 2019-12-17 11:54 | NUR ---
I talked to Susan in [facility] regarding patients flu vaccine, per susan he got his flu shot already for 2019
--- NOTE | 2019-12-17 13:55 | NUR ---
SCHEDULED MEDS GIVEN VIA G-TUBE. NO RESIDUAL. PT IS SLEEPING, NO SIGNS OF DISTRESS. WILL CONTINUE TO MONITOR
[2019-12-17 16:00] VITALS: BP 95/50
--- NOTE | 2019-12-17 16:10 | NUR ---
AUTOMOTIVE FLEET SUPERVISOR assessment/discharge plan High Risk DC Screen Yes Name: Brian Whaley Relationship: brother Pre-Admission Living Arrangements: Other Other: [facility] ([facility] of [facility]) Current Name/Tel: wheelchair Healthcare Decision Maker: Other Other: brother: Brian May Advance Directive No Tentative Discharge Plan Summary: Patient is a 74 year old male admitted for PNA. I called and spoke with Ismael from [employer] (name of [facility]). Patient is not conserved and his brother Brian May is his health care decision maker. Patient's pcp is Mauri Blanco. [employer] ocean transportation intermediary is available Monday-Monday 6am-6pm. Patient's wrapper caser at [facility] is Shantelle Tomlinson . I called and spoke Shantelle Tomlinson, she is aware patient is hospitalized and does not have any questions for AUTOMOTIVE FLEET SUPERVISOR or CM. Radiator Mechanic and/or Clinic Coordinator will follow up as needed. Signature: [place]LL [place] Date: Dec 17, 2019 Addendum: 12/18/19 at 1614 by Cruz Lagunas ANN-MARIE contacted Esperanza from [employer] [phone] and faxed clinical packet for hospice evaluation. Esperanza stated she would contact SW with appointment time to meet with patient. SW will follow up as needed.
--- NOTE | 2019-12-17 16:18 | NUR ---
12/17/19 RD INITIAL ASSESSMENT COMPLETED PLEASE REFER TO NUTRITION ASSESSMENT UNDER CARE ACTIVITY FOR ESTIMATED NUTRITIONAL NEEDS. 1. CONTINUE NPO DIET PER MD 2. RECOMMEND SWALLOW EVALUATION 3. IF PT FAILS SWALLOW EVALUATION, CONSIDER ENTERAL NUTRITION 4. RD TO FOLLOW-UP 2-3 DAYS, HIGH RISK FERMIN CUMMINGS RD
--- NOTE | 2019-12-17 17:15 | NUR ---
SCHEDULED MEDS ADMINISTERED VIA G-TUBE. NO RESIDUAL. PT IS SLEEPING. NO SIGNS OF DISTRESS. WILL CONTINUE TO MONITOR
[2019-12-17] MEDS: LEVOFLOXACIN 500 MG/D5W PREMIX 100 ML IV SCH (18:05)
--- NOTE | 2019-12-17 19:15 | NUR ---
REPORT GIVEN TO ESTHETICIAN/SKIN THERAPIST NURSE FOR CONTINUITY OF CARE. PT IS ASLEEP AND STABLE. CALL LIGHT WITHIN PT'S REACH.
--- NOTE | 2019-12-17 19:30 | NUR ---
RECEIVED BEDSIDE REPORT FROM AM SHIFT RN FOR PT'S CONTINUITY OF CARE. PT IS AWAKE, APHASIC, WITH NO SIGNS OF DISTRESS. PT IS ON ROOM AIR, HAS LEFT WRIST 22G WITH D5NS AT 100ML/HR. SAFETY MEASURES IN PLACE AND CALL LIGHT IS WITHIN REACH. WILL MONITOR PT THROUGHOUT SHIFT.
[2019-12-17] MEDS: LATANOPROST 0.005% OP 2.5 ML BTL OP SCH (21:55)
--- NOTE | 2019-12-17 21:55 | NUR ---
AT 2145, GTUBE SITE NOTED WITH SOME DRAINAGE. DRESSING CHANGED AND REINFORCED. DEVELOPMENTAL ELECTRONICS ASSEMBLER AWARE OF THE DRAINAGE. WILL NOTIFY MD IN THE AM. GTUBE PLACEMENT VERIFIED WITH AUSCULTATION, AND ASPIRATION. ADMINISTERED SCHEDULED MEDICATIONS ORDERED. PT TOLERATED IT WELL. PT MADE COMFORTABLE. WILL CONTINUE TO MONITOR PT.
--- NOTE | 2019-12-17 22:30 | NUR ---
PT ASLEEP WITH NO SIGNS OF DISTRESS. WILL CONTINUE TO MONITOR PT.
[2019-12-18] VITALS: BP 96/57
--- NOTE | 2019-12-18 00:30 | NUR ---
PT WOKE UP UPON VS CHECK. NO SIGNS OF DISTRESS OR DISCOMFORT. NO NOTED DRAINAGE ON GTUBE SITE.
[2019-12-18] MEDS: DEXT 5% /NACL 0.9% 1,000 ML IV SCH ×2 (00:55→11:12)
--- NOTE | 2019-12-18 02:45 | NUR ---
PT STILL ASLEEP WITH NO SIGNS OF DISTRESS.
[2019-12-18] MEDS: CLINDAMYCIN 600 MG in DEXTROSE 5% 50 ML IV SCH ×3 (04:10→22:11)
--- NOTE | 2019-12-18 04:10 | NUR ---
ADMINISTERED SCHEDULED IV ABX ORDERED. PT STILL ASLEEP WITH NO SIGNS OF DISTRESS. WILL CONTINUE TO MONITOR PT.
--- NOTE | 2019-12-18 06:20 | NUR ---
PT AWAKE, ALERT, MAKING INCOMPREHENSIBLE SOUNDS, IN CALM AND PLEASANT MOOD. WILL ENDORSE TO AM SHIFT RN FOR PT'S CONTINUITY OF CARE.
[2019-12-18 06:24] LABS: BASOPHILS % (AUTO) 0.9 % (0.0-2.0); EOSINOPHILS # (AUTO) 0.1 K/uL (0-0.4); EOSINOPHILS % (AUTO) 1.9 % (0.0-4.0); HEMATOCRIT 24.7 % (36-52); HEMOGLOBIN 7.9 g/dL (12.0-18.0); LYMPHOCYTES # (AUTO) 0.8 K/uL (2.0-11.5); MEAN CORPUSCULAR HEMOGLOBIN 30 pg (27-31); MEAN CORPUSCULAR HGB CONC 32 g/dL (33-37); MEAN CORPUSCULAR VOLUME 92.4 fL (80-94); MONOCYTES # (AUTO) 0.6 K/uL (0.8-1.0); MONOCYTES % (AUTO) 19.2 % (1.7-9.3); NEUTROPHILS # (AUTO) 1.6 K/uL (1.8-7.7); PLATELET COUNT (AUTO) 96 K/uL (140-450); RED BLOOD CELL COUNT(AUTO) 2.68 MIL/uL (4.20-6.10); RED CELL DISTRIBUTION WIDTH 16.6 % (11.6-13.7)
--- NOTE | 2019-12-18 07:41 | NUR ---
RECEIVED REPORT FROM ALISIA NUNEZ. PT AWAKE, APHASIC, ORIENTED X1. IV ON LT WRIST 22 GA RUNNING IVF PER ORDER. RESPIRATIONS EVEN AND UNLABORED ON RA. NOTED G-TUBE ON LUQ ABD, ABD SOFT, ACTIVE BS, LBM 12/18. F/C IN PLACE, DRAINING CLEAN, JUAN URINE. SKIN IS INTACT, WARM TO TOUCH. PT ON FALL RISK PRECAUTIONS, SAFETY MEASURES IN PLACE, CALL LIGHT WITHIN REACH.
[2019-12-18] MEDS: LACTULOSE 20 GM/30 ML UDC GT SCH ×2 (08:12→22:10)
[2019-12-18] MEDS: HYDROcodone/APAP 5/325 MG 1 TAB TAB GT SCH ×2 (08:12→22:11)
[2019-12-18] MEDS: FERROUS SULFATE 300 MG/5 ML UDC GT SCH ×2 (08:12→22:11)
[2019-12-18] MEDS: POLYETHYLENE GLYCOL 17 GM/PKT GT SCH (08:13)
[2019-12-18] MEDS: FAMOTIDINE 20 MG TAB GT SCH (08:13)
[2019-12-18] MEDS: amLODIPine 5 MG TAB GT SCH ×2 (08:13→08:15)
[2019-12-18] MEDS: LEVOTHYROXINE 0.075 MG TAB GT SCH (08:14)
[2019-12-18] MEDS: CARBIDOPA/LEVODOPA 25/100 MG 1 TAB GT SCH ×3 (08:14→17:56)
[2019-12-18 08:20] LABS: ANION GAP 12.8 (8-16); CARBON DIOXIDE 25.8 mmol/L (21-32); CHLORIDE 107 mmol/L (98-107); GLUCOSE 109 mg/dL (74-106); POTASSIUM 3.6 mmol/L (3.5-5.1); SODIUM SERUM 142 mmol/L (136-145); UREA NITROGEN, BLOOD 12 mg/dL (7-18)
--- NOTE | 2019-12-18 09:35 | NUR ---
HELD AMLODIPINE AT THIS TIME, PT B/P 98/55 BORDERLINE HYPOTENSION, WILL NOTIFY
[2019-12-18 10:19] VITALS: BP 98/55
--- NOTE | 2019-12-18 11:40 | NUR ---
PT IS LYING ON RT LATERAL SIDE. NO S/S OF DISTRESS, FLACC 0.
--- NOTE | 2019-12-18 14:00 | NUR ---
INSERTED IV TO LT FA 24 GA, FLUSHING WITH NO RESISTANCE, BLOOD RETURN NOTED. PT TOLERATED WELL.
--- NOTE | 2019-12-18 15:14 | NUR ---
NOTIFIED DR. MILLER REGARDING CONSULT.
--- NOTE | 2019-12-18 15:40 | NUR ---
RESIDUAL 0ML. STARTED TUBE FEEDING JEVITY 1.2 AT 10 ML/HR. WILL RECHECK RESIDUAL WITHIN 1 HOUR.
[2019-12-18] MEDS ORDERED: FUROSEMIDE 20 MG/2 ML VIAL IVP SCH (15:45)
[2019-12-18] MEDS ORDERED: POTASSIUM CHLORIDE 20% 40 MEQ/15 ML UDC GT SCH (15:50)
[2019-12-18 16:00] VITALS: BP 116/50
--- NOTE | 2019-12-18 17:00 | NUR ---
RESIDUAL 0ML. TITRATED TO 20ML/HR. PT HAS NO S/S OF DISTRESS, FLACC 0.
[2019-12-18] MEDS: LEVOFLOXACIN 500 MG/D5W PREMIX 100 ML IV SCH (17:57)
--- NOTE | 2019-12-18 19:10 | NUR ---
ENDORSED PT TO NURSE WILLIAM. PT HAS NO SIGNS OF DISTRESS AT THIS TIME.
--- NOTE | 2019-12-18 19:10 | NUR ---
RECIEVED PT .AAOX1 - RESPONDING WHEN CALLING HIS NAME BY SMILLING AND NODDING OF THE HEAD . NID - O2 SAT WNL . IV SITE INTACT AND PATENT . ON G TUBE FEEDING - TOLERATED WELL . W/ FC CONNECTING TO BAG W/ LIGHT JUAN U.O . LOW JARET SCALE. ON SAFETY / FALL PRECAUTION PROTOCOL - BED ALARM ON. POC DISCUSSED BUT POOR UNDERSTANDING DUE TO MENTAL STATUS . WILL CONT. TO MONITOR.
--- NOTE | 2019-12-18 22:00 | NUR ---
MADE ROUNDS . NO SIGNS OF ACUTE DISTRESS NOTED AT THIS TIME . WILL CONT. TO MONITOR.
[2019-12-18] MEDS: LATANOPROST 0.005% OP 2.5 ML BTL OP SCH (22:12)
[2019-12-19] VITALS: BP 122/80
--- NOTE | 2019-12-19 | NUR ---
MADE ROUNDS . BREATHING UNLABORED AND EVEN . WILL CONT. TO MONITOR.
[2019-12-19] MEDS: DEXT 5% /NACL 0.9% 1,000 ML IV SCH (01:38)
--- NOTE | 2019-12-19 02:06 | NUR ---
SLEEPING . CHEST RISE AND FALL EQUALLY . WILL CONT. TO MONITOR.
--- NOTE | 2019-12-19 04:00 | NUR ---
MADE ROUNDS . NO SIGNS OF ACUTE DISTRESS NOTED . WILL CONT. TO MONITOR.
[2019-12-19] MEDS: CLINDAMYCIN 600 MG in DEXTROSE 5% 50 ML IV SCH ×2 (05:00→12:20)
--- NOTE | 2019-12-19 07:32 | NUR ---
ENDORSE TO AM SHIFT FOR CONT. OF CARE . PT- STABLE CONDITION.
--- NOTE | 2019-12-19 07:35 | NUR ---
RECEIVED REPORT FROM NIGHT RN. PT RESTING IN BED. AAOX1, NO S/S OF ACUTE DISTRESS. FLACC-0. IV SITE PATENT AND INTACT. CALL LIGHT WITHIN REACH. SAFETY MEASURES ENSURED. WILL CONTINUE TO MONITOR.
[2019-12-19 08:00] VITALS: BP 101/47
[2019-12-19] MEDS: amLODIPine 5 MG TAB GT SCH (09:00)
[2019-12-19] MEDS ORDERED: SPIRONOLACTONE 50 MG TAB PO SCH (09:00)
[2019-12-19] MEDS ORDERED: LEVO750T2 GT (09:25)
[2019-12-19] MEDS ORDERED: CLIN300C2 GT (09:25)
[2019-12-19] MEDS: FERROUS SULFATE 300 MG/5 ML UDC GT SCH (09:27)
[2019-12-19] MEDS: FAMOTIDINE 20 MG TAB GT SCH (09:27)
[2019-12-19] MEDS: HYDROcodone/APAP 5/325 MG 1 TAB TAB GT SCH (09:27)
[2019-12-19] MEDS: LACTULOSE 20 GM/30 ML UDC GT SCH (09:27)
[2019-12-19] MEDS: LEVOTHYROXINE 0.075 MG TAB GT SCH (09:27)
[2019-12-19] MEDS: CARBIDOPA/LEVODOPA 25/100 MG 1 TAB GT SCH ×3 (09:28→16:51)
--- NOTE | 2019-12-19 11:02 | NUR ---
ALISIA UGARTE REMAINED TO FOLLOW UP ON IMMUNIZATION STATUS WITH [facility] AND DOCUMENT BEFORE DISCHARGE.
--- NOTE | 2019-12-19 11:10 | NUR ---
Peanut Cleaner Note: Per Missy Kennedy from [facility] , patient's brother Brian May would like [facility] consents to be faxed or emailed to Missy for Brian to sign, fax number , [email or web address]. Missy told me Brian does not feel well at this time and [facility]. I called and spoke with Esperanza from [facility] and informed her of my conversation with Missy. Per Esperanza, she is going to contact patient's brother Brian and fax or email hospice consents.
--- NOTE | 2019-12-19 12:10 | NUR ---
TURNER REMOVED FOR DISCHARGE.
--- NOTE | 2019-12-19 12:28 | NUR ---
SPOKE TO ORAL RN FROM [facility], PER HER THE BROTHER STEPHANIE WANTS THE PATIENT TO GO WITH HOSPICE AND WAS QUESTIONING WHICH HOSPICE COMPANY WAS BEST. BOTH ORAL AND THE SENIOR ELECTRICAL DESIGNER OF [facility]WAYS WANT TO HAVE HOSPICE EVALUATE THE PATIENT BEFORE DIRECTOR OF MANAGED CARE. WILL COMMUNICATE THIS TIME LAZ AND CHARGE. LEFT MESSAGE FOR STEPHANIE.
--- NOTE | 2019-12-19 13:50 | NUR ---
PT RESTING IN BED. NO S/S OF ACUTE DISTRESS. FLACC-0/ CALL LIGHT WITHIN REACH. SAFETY MEASURES ENSURED. WILL CONTINUE TO MONITOR.
[2019-12-19] MEDS ORDERED: FUROSEMIDE 20 MG/2 ML VIAL IVP SCH (15:00)
[2019-12-19 16:00] VITALS: BP 105/60
--- NOTE | 2019-12-19 16:23 | NUR ---
Acid Plant Helper Note: Per nurse Blankenship from [facility], patient's brother Brian would like to meet with [facility] account liaison hospice and sign hospice consent/s tomorrow. Per Charge Nurse María, she is going to ask MD if he/she would like patient to be discharged back to [facility] today or tomorrow. I informed ALISIA Daniel patient's brother Brian is planning to meet with [facility] account liaison hospice tomorrow to sign hospice consent/s.
--- NOTE | 2019-12-19 17:42 | NUR ---
TRANSPORT HERE FOR ELECTRICAL MAINTENANCE TECHNICIAN. PT VOIDED AFTER TURNER REMOVAL AND HAD A BOWEL MOVEMENT. REPORT GIVEN TO ALISIA MIXON. DR. ARZOLA AWARE OF PATIENT BEING DISCHARGED WITHOUT HOSPICE BEING SET UP. PER GEOVANI RAMIREZ WILL WORK WITH THEM AFTER DISCHARGE.
[2019-12-20] MEDS ORDERED: FUROSEMIDE 20 MG TAB PO SCH (09:00)
== END 2019-12-19 17:45 | DRG 193 ==
LOC: MED 14:23 → MMU 18:21 → MTU 22:44
PROVIDERS: ADMIT Preventive Medicine Preventive Medicine/Occupational Environmental Medicine; ATTEND Preventive Medicine Preventive Medicine/Occupational Environmental Medicine
DX: J18.9 Pneumonia, unspecified organism (principal); E43 Unspecified severe protein-calorie malnutrition; C78.7 Secondary malignant neoplasm of liver and intrahepatic bile duct; D61.818 Other pancytopenia; F72 Severe intellectual disabilities; J90 Pleural effusion, not elsewhere classified; K76.6 Portal hypertension; R18.8 Other ascites; Z68.20 Body mass index [BMI] 20.0-20.9, adult; E03.9 Hypothyroidism, unspecified; E83.52 Hypercalcemia; G20 Parkinson's disease; K21.9 Gastro-esophageal reflux disease without esophagitis; K40.20 Bilateral inguinal hernia, without obstruction or gangrene, not specified as recurrent; K74.60 Unspecified cirrhosis of liver; M20.091 Other deformity of right finger(s); M41.9 Scoliosis, unspecified; M81.0 Age-related osteoporosis without current pathological fracture; N18.9 Chronic kidney disease, unspecified; R13.10 Dysphagia, unspecified; K86.9 Disease of pancreas, unspecified; Z74.01 Bed confinement status; Z86.73 Personal history of transient ischemic attack (TIA), and cerebral infarction without residual deficits; Z88.0 Allergy status to penicillin; Z90.49 Acquired absence of other specified parts of digestive tract; Z93.1 Gastrostomy status; Z88.1 Allergy status to other antibiotic agents; Z88.8 Allergy status to other drugs, medicaments and biological substances; Z79.899 Other long term (current) drug therapy; Z79.84 Long term (current) use of oral hypoglycemic drugs
CPT/HCPCS: 36415; 71045; 80048; 80053; 83690; 83735; 84100; 85025; 85651; 86140; 87040; 87081; 87804; 99285; J1940; J1956; J3490; J7030; J7042; J7060; Q0092